=== PATIENT | female | born 1940 | race Caucasian/White ===

== ENCOUNTER → 2023-10-28 10:14 | Outpatient (REF) | payer MEDICARE, OTHER, SELFPAY ==
[2023-10-28 14:58] LABS: % Basophils 0.8 % (0-2); % Eosinophils 0.7 % (0-6); % Immature Granulocytes 0.7 % (0-0.5); % Monocytes 8.3 % (1.7-9.3); % Neutrophils 65.5 % (42.2-75.2); Absolute Basophils 0.1 10^3/uL (0-0.2); Absolute Lymphocytes 1.5 10^3/uL (1.2-3.4); Absolute Monocytes 0.5 10^3/uL (0.1-0.6); Hematocrit 41.7 % (37.0-47.0); Hemoglobin 13.7 g/dL (12.0-16.0); Mean Corp Hgb Conc. 32.9 g/dL (33.0-37.0); Mean Corpuscular Volume 88.3 fL (81.0-99.0); Nucleated Red Blood Cells % 0 %; Platelet Count 223 10^3/uL (130-400); Red Blood Cell Count 4.72 10^6/uL (4.20-5.40); Red Cell Dist. Width 14.7 % (11.5-14.5); White Blood Cell Count 6.1 10^3/uL (4.8-10.8)
[2023-10-28 15:14] LABS: ALT (SGPT) 18 U/L (0-35); AST (SGOT) 24 U/L (14-36); Albumin 4.3 g/dl (3.5-5.0); Alkaline Phosphatase 69 U/L (38-126); Blood Urea Nitrogen 28 mg/dl (7-17); Calcium 13.3 mg/dl (8.4-10.2); Carbon Dioxide 29 mmol/L (22-30); Chloride 99 mmol/L (98-107); Glucose 112 mg/dl (70-99); Iron 81 ug/dl (37-170); Potassium 4.1 mmol/L (3.5-5.1); Sodium 140 mmol/L (135-145); Total Bilirubin 0.9 mg/dl (0.2-1.3); Total Protein 7.1 g/dl (6.3-8.2); eGFR 41.31
[2023-10-28 15:33] LABS: TSH 2.41 uIU/ml (0.47-4.68)
[2023-10-29 09:09] LABS: Glycohemoglobin (HgbA1c) 6.2 % (4.0-5.6)
== END ==
LOC: HWLAB 10:14
PROVIDERS: ATTENDING PHYSICIAN Family Medicine
DX: M54.16 Radiculopathy, lumbar region (principal); E03.9 Hypothyroidism, unspecified; I10 Essential (primary) hypertension; N18.9 Chronic kidney disease, unspecified; E11.21 Type 2 diabetes mellitus with diabetic nephropathy; R63.4 Abnormal weight loss
CPT/HCPCS: 36415; 72110; 80053; 82728; 83036; 83540; 83970; 84443; 85025

== ENCOUNTER 2023-11-04 20:03 | Inpatient (IN) | payer MEDICARE, OTHER, SELFPAY ==
[2023-11-04 16:12] VITALS: BP 182/88
--- NOTE | 2023-11-04 17:12 | ED.GENMED ---
History of Present Illness
General
Chief Complaint: Abnormal Lab Value
Time Seen by Provider: 11/04/23 17:00
Travel History
Have you had any contact with someone who has COVID-19?: No
Do you have any symptoms of coronavirus? Fever > 100 degrees, chills, cough, shortness of breath, sore throat, loss of taste or smell, muscle aches, or headache?: No
History of Present Illness
History of Present Illness:
HPI: Patient presents due to concern for hypercalcemia and was referred here. She seems to be somewhat of a limited historian but states that she initially saw primary care doctor who noted the high calcium and lab work today showed an even higher
calcium. She denies any significant symptoms. She denies any significant abdominal pain.
EXAM:
GENERAL: Well appearing for the most part but she does seem somewhat confused at times
HEENT: Moist oral mucosa
CARDIOVASCULAR: No murmurs, normal heart rate, regular rhythm, No chest wall tenderness
PULMONARY: No respiratory distress, breath sounds are clear and equal
ABDOMEN: Soft with no peritoneal signs, no tenderness
NEUROLOGIC: Good strength all extremities, no coordination deficits
PSYCHIATRIC: Appropriate mental status, slightly limited insight and judgement
EXTREMITIES: Nontender, no edema, moves all extremities equally
SKIN: No rash, no lesions
TIME OF INITIAL ENCOUNTER: 6 PM
NUMBER AND COMPLEXITY OF PROBLEMS ADDRESSED AT THE ENCOUNTER
� Chronic conditions affecting care: Breast cancer, diabetes, hypothyroidism
� Acute Exacerbation and/or Progression of Chronic Illness: This is an acute problem
� Differential Diagnosis includes: Hypercalcemia related to malignancy, thyroid disease, parathyroid disease
AMOUNT AND/OR COMPLEXITY OF DATA TO BE REVIEWED AND ANALYZED
� I performed an independent evaluation of and my interpretation is:
EKG: Sinus 86, QTc is [address]:
X-rays:
Laboratory Studies: CBC unremarkable, creatinine is 1.5 and calcium earlier today is 15.3 up from 13.3 1 week ago
Other:
� Review of other/old records: Calcium was 13.3 from 1 week ago
� Clinical information was obtained by an independent historian: I spoke to the son at bedside who agrees the patient does seem somewhat confused at times.
� Prescriptions/Medications Considered but not given:
� Further testing considered but not performed:
RISK OF COMPLICATIONS AND/OR MORBIDITY OR MORTALITY OF PATIENT MANAGEMENT
� Social determinants of health affecting care: Lives at home
� Discussion with other providers: Discussed case with Dr. Quinones; I also spoke to Dr. Martinez states she will be ordering magnesium as magnesium is low
� Escalation of care including admission/observation vs risk of discharge considered: The patient has marked hypercalcemia. EKG is unremarkable. To DO daughter recommends IV fluids and midnight which I have ordered. He
recommends to hold off on diuresis at this time.
Phy Exam
Physical Exam
Physical Exam:
See HPI
Course
Orders/Labs/Results
Orders:
Orders
11/04/23 17:12
0.9% Sodium Chloride 1000 ml [Nss] 1,000 ml IV BOLUS
11/04/23 17:14
Electrocardiogram (*1) Urgent
Reason for Study: Other
Other Reason for Exam: hypercalcemia
EKG- Treatment ONCE
11/04/23 17:19
Complete Blood Count/With Diff Urgent
Comprehensive Metabolic Panel Urgent
Magnesium Urgent
Comment: ADD ON
PTH [Intact PTH Includes Calcium] Urgent
Phosphorus Urgent
Comment: ADD ON
TSH Reflex To Free T4 Urgent
Comment: ADD ON
11/04/23 17:54
Add On- LAB Urgent
Tests Added?: tsh reflex fT4
11/04/23 18:32
Add On- LAB Urgent
Tests Added?: phos, mg
11/04/23 19:00
Pamidronate Disodium [Aredia] 60 mg 0.9% Sodium Chloride 250 ml [Nss] 250 ml IV ONCE
11/04/23 19:29
Magnesium Sulfate 2 Gram/50 ml [Magnesium Sulfate] 2 gram in 50 ml IV NOW
11/04/23 19:35
Urinalysis Reflex To Culture Routine
Date Specimen was Collected: 11/04/23
Time Specimen was Collected: 19:34
11/04/23 19:38
Admit/Transfer Patient As Directed
Co-Sign Provider:
Level of Care: Inpatient admission
Assign to:: Medical/Surgical
Physician / Group: michael
Diagnosis: symptomatic hypercalcemia
Reason for Hospitalization: symptomatic hypercalcemia
Expected length of stay greater than two midnights?: Yes
ELOS- Estimated Length of Stay in days: 3
I certify the patient meets the requirements for IP care: Yes
11/04/23 19:39
Code Status As Directed
Resuscitation Status: Full Code
Abnormal Lab Results
11/04/23
17:19
Hct 36.4 L %
(37.0-47.0)
RDW 14.8 H %
(11.5-14.5)
Absolute Monos (auto) 0.8 H 10^3/uL
(0.1-0.6)
Lymphocytes % 19.2 L %
(20.5-51.1)
Monocytes % 10.9 H %
(1.7-9.3)
Sodium 134 L mmol/L
(135-145)
BUN 32 H mg/dl
(7-17)
Creatinine 1.5 H mg/dL
(0.6-1.0)
Glucose 107 H mg/dl
(70-99)
Calcium 15.2 H* mg/dl
(8.4-10.2)
Magnesium 1.2 L mg/dl
(1.6-2.3)
PTH Intact 3.8 L pg/ml
(13.6-85.8)
11/04/23 17:19
11/04/23 17:19
Vital Signs
Initial and Last Documented VS:
Initial Vital Signs
Temp Pulse Resp BP Pulse Ox
98.2 F 72 20 182/88 99
11/04/23 16:12 11/04/23 16:12 11/04/23 16:12 11/04/23 16:12 11/04/23 16:12
Last Documented Vital Signs
Temp Pulse Resp BP Pulse Ox
98.2 F 92 22 173/87 96
11/04/23 16:12 11/04/23 19:06 11/04/23 19:06 11/04/23 19:06 11/04/23 19:06
*Critical Care Note
Total Time (30-74mins, 75-104mins- exclusive of procedures): 45min
comment:
The patient has critically high calcium. She was emergently given IV fluids as well as emergently given pamidronate by IV. EKG was also checked which was unremarkable.
ED Attending Note
-
Portions of this chart may have been created with voice recognition software.� Occasional wrong word or��sound alike� substitutions may have occurred due to the inherent limitations of voice recognition software.
Discharge Plan
Departure
Patient Disposition: Admit
Date of Disposition: 11/04/23
Time of Disposition: 18:53
Presentation/result/management discussed w/ accepting MD/DO: Hospitalist
Discharge Problem:
Hypercalcemia
Prescriptions:
No Action
losartan 50 mg Tablet
50 mg PO BID
tramadol-acetaminophen 37.5-325 mg tablet
1 tab PO BIDPRN PRN (Reason: mild pain)
levothyroxine [Synthroid] 88 mcg Tablet
88 mcg PO SUMOTUTHFRSA@0800
levothyroxine [Synthroid] 88 mcg Tablet
176 mcg PO WE@0800
docusate sodium [Stool Softener] 100 mg Capsule
100 mg PO DAILY PRN (Reason: constipation)
vitamin B complex Tablet
1 tab PO DAILY
metformin 500 mg tablet extended release 24 hr
500 mg PO BID
cholecalciferol (vitamin D3) 50 mcg (2,000 unit) Tablet
50 mcg PO DAILY
Patient Comments:
11/04/2023, per pt., her doctor told her to stop taking this vitamin today.
Trulicity 1.5 mg/0.5 mL pen injector
1.5 mg SC QWEEK
Patient Comments:
11/04/2023, pt. states to take on Wednesdays or .
red yeast rice
40 mg PO BID
Referrals:
NONE,* [Active] -
Interventions
Interventions:
*Risk Screen - Suicide Last Done: 11/04/23 16:12
*General Assessment Last Done: 11/04/23 16:12
*Neglect/Abuse Screening Last Done: 11/04/23 16:12
*ED COVID-19 Vaccine History Last Done: 11/04/23 16:37
Discharge Date and Time
Print Language: LITHUANIAN
[2023-11-04 17:21] VITALS: BP 174/72
[2023-11-04] MEDS: NSS 1000 IV ×2 (17:21→20:41)
[2023-11-04 17:22] VITALS: BP 174/72
[2023-11-04 17:30] LABS: % Basophils 0.7 % (0-2); % Eosinophils 0.4 % (0-6); % Immature Granulocytes 0.4 % (0-0.5); % Lymphocytes 19.2 % (20.5-51.1); % Monocytes 10.9 % (1.7-9.3); % Neutrophils 68.4 % (42.2-75.2); Absolute Basophils 0.1 10^3/uL (0-0.2); Absolute Lymphocytes 1.3 10^3/uL (1.2-3.4); Absolute Monocytes 0.8 10^3/uL (0.1-0.6); Absolute Neutrophils 4.7 10^3/uL (1.4-6.5); Hematocrit 36.4 % (37.0-47.0); Hemoglobin 12.6 g/dL (12.0-16.0); Mean Corp Hgb Conc. 34.6 g/dL (33.0-37.0); Mean Corpuscular Hgb 29.8 pg (27.0-31.0); Mean Corpuscular Volume 86.1 fL (81.0-99.0); Mean Platelet Volume 10.2 fL (7.4-10.4); Nucleated Red Blood Cells % 0 %; Platelet Count 195 10^3/uL (130-400); Red Blood Cell Count 4.23 10^6/uL (4.20-5.40); Red Cell Dist. Width 14.8 % (11.5-14.5); White Blood Cell Count 6.9 10^3/uL (4.8-10.8)
[2023-11-04 17:57] LABS: ALT (SGPT) 16 U/L (0-35); AST (SGOT) 27 U/L (14-36); Albumin 3.9 g/dl (3.5-5.0); Alkaline Phosphatase 63 U/L (38-126); Blood Urea Nitrogen 32 mg/dl (7-17); Carbon Dioxide 26 mmol/L (22-30); Chloride 98 mmol/L (98-107); Glucose 107 mg/dl (70-99); Potassium 4.2 mmol/L (3.5-5.1); Sodium 134 mmol/L (135-145); Total Bilirubin 0.8 mg/dl (0.2-1.3); Total Protein 6.4 g/dl (6.3-8.2); eGFR 34.79
[2023-11-04 18:09] LABS: Intact PTH 3.8 pg/ml (13.6-85.8)
[2023-11-04 18:13] LABS: Calcium 15.2 mg/dl (8.4-10.2)
[2023-11-04 18:39] LABS: TSH Reflex To Free T4 2.66 uIU/ml (0.47-4.68)
[2023-11-04 18:53] LABS: Magnesium 1.2 mg/dl (1.6-2.3); Phosphorus 3.3 mg/dl (2.5-4.5)
[2023-11-04] MEDS: AREDIA 270 MG IV (19:03)
--- NOTE | 2023-11-04 19:05 | HPS.HSE ---
Family Physician
-
Family Physician: Demetria Antonio
Chief Complaint
-
generalized weakness
left sided abdominal pain
History of Present Illness
83 year old with PMH for breast cancer, thyroid lump, htn, hld, hypothyroidism presented to us with generalized weakness for two weeks. she also complained of left sided lower abdominal pain toward the back intermittently for past few weeks. denied
n/v/d. stated poor appetite. denied fever, chills, chest pain, sob. denied [place],dizzy or syncopal episode. denied dysuria or hematuria. patient was noted to have hypercalcemia a week at PCP office. she was followed by nephrology today and noted to
have worsening of calcium level. admitting for further management
patient ordered normal saline and pamidronate in ER.admitting for further management.
Medical History
Past Medical History
Past Medical History: Reports Other
Additional Past Medical History:
type 2 Dm
hypothyroidism
CKD stage 3
htn
breast cancer
Past Surgical History: Reports Other
Additional Past Surgical History:
right breast lumpectomy
right thyroid lobectomy
tubal ligation
Social History
Tobacco: Non-smoker
Alcohol: None
Drug: None
Family History
Family History: Not pertinent
Allergies / Home Medications
Allergies reflects when Allergies were last updated in [facility] [employer].
Home Medications with original date entered in [facility] [employer]
Allergy/Medication List:
Allergies
Allergy/AdvReac Type Severity Reaction Status Date / Time
prednisone Allergy Unknown Verified 11/04/23 16:18
Home Medications
cholecalciferol (vitamin D3) 50 mcg (2,000 unit) tablet 50 mcg PO DAILY 11/04/23
docusate sodium 100 mg capsule (Stool Softener) 100 mg PO DAILY PRN constipation 11/04/23
dulaglutide 1.5 mg/0.5 mL subcutaneous [facility]) 1.5 mg SC QWEEK 11/04/23
levothyroxine 88 mcg tablet (Synthroid) 88 mcg PO SUMOTUTHFRSA@79911/04/23
levothyroxine 88 mcg tablet (Synthroid) 176 mcg PO WE@79911/04/23
losartan 50 mg tablet 50 mg PO BID 11/04/23
metformin 500 mg tablet,extended release 24 hr 500 mg PO BID 11/04/23
red yeast rice 40 mg PO BID 11/04/23
tramadol 37.5 mg-acetaminophen 325 mg tablet 1 tab PO BIDPRN PRN mild pain 11/04/23
vitamin B complex 1 tab PO DAILY 11/04/23
Review of Systems
-
Constitutional: Reports No Symptoms
EENT: Reports No Symptoms
Respiratory: Reports No Symptoms
Cardiac: Reports No Symptoms
Abdomen/GI: Reports Abdominal Pain (left sided)
: Reports No Symptoms
Musculoskeletal: Reports No Symptoms
Skin: Reports No Symptoms
Neurological: Reports No Symptoms
Endocrine: Reports No Symptoms
Hematologic/Lymphatic: Reports No Symptoms
Psych: Reports No Symptoms
Physical Exam
Vital Signs
Vital Signs
Temp Pulse Resp BP Pulse Ox
98.2 F 89 16 174/72 96
11/04/23 16:12 11/04/23 17:22 11/04/23 17:22 11/04/23 17:22 11/04/23 17:22
Physical Exam
General: Well Developed, Well Nourished and No Apparent Distress
HEENT: NormoCephalic, Moist mucous membranes and Atraumatic
Respiratory: Clear
Cardiac: S1/S2 and Regular Rhythm; No Murmur or Rub
GI: Soft, Non Tender, Non Distended and Normal Bowel Sounds; No Organomegaly
Rectal: Deferred by Provider
Musculoskeletal: No Clubbing, No Cyanosis and No Edema
Skin: No Rash
Neuro: AO x 3 and Nonfocal/grossly intact
Psych: Calm
Laboratory Results
-
11/04/23 17:19
11/04/23 17:19
Laboratory Results
Total Bilirubin 0.8 mg/dl (0.2-1.3) 11/04/23 17:19
AST 27 U/L (14-36) 11/04/23 17:19
ALT 16 U/L (0-35) 11/04/23 17:19
Alkaline Phosphatase 63 U/L (38-126) 11/04/23 17:19
Data Reviewed
-
Lab Data: Labs Reviewed by me
Impression/Plan
-
#hypercalcemia unclear cause likely dehydration
-gave pamidronate in ER
-fluids continued
-trend calcium level in am
-nephrology consulted
#acute on chronic CKD stage 3b likely dehydration
-cr 1.5
-normal saline continued
#hypomagnesemia likely poor oral intake
-mag 1.2
-mag rider
-monitor mag in am
#left side lower abdominal pain radiating to lower back unclear cause
-consider CT abdomen pelvis when creatine better
#hypoparathyroidism
-PTH intact 3.8
#type 2 Dm
-hold Trulicity, metformin
-sliding scale
-daily bgm
-CHO diet
#hypothyroidism
-levothyroxine continued
#essentia htn
-losartan held
-add hydralazine prn
#hxt of right breast ca
-s/right breast lumpectomy
#hxt of right thyroid lobectomy
#DVT prophylaxis
-heparin sq
#CODE status
-full code
[2023-11-04 19:06] VITALS: BP 173/87
[2023-11-04 19:52] LABS: Urine Albumin Negative (Neg - Trace); Urine Bilirubin Negative (Negative); Urine Character Clear (Clear); Urine Color Yellow; Urine Glucose Negative (Negative); Urine Ketone Trace (Negative); Urine Leukocyte Trace (Negative); Urine Nitrite Negative (Negative); Urine Occult Blood Negative (Negative); Urine Specific Gravity 1.025 (<1.030); Urine Urobilinogen Negative (Neg - 1+)
[2023-11-04 20:19] LABS: Urine Bacteria Few (Negative); Urine Hyaline Cast 0-2 /LPF (0-2)
[2023-11-04 20:28] VITALS: BMI 27.0
[2023-11-04] MEDS: APRESOLINE 5 MG IV (20:42)
[2023-11-04] MEDS: HEPARIN 5000 UNITS SC (20:42)
[2023-11-04] MEDS: MAGNESIUM SULFATE 50 IV (20:44)
[2023-11-04 20:45] VITALS: BP 190/88
[2023-11-04] MEDS: ULTRAM 50 MG PO (21:37)
[2023-11-04 22:14] LABS: Glucose - Point of Care 90 mg/dl (70-99)
[2023-11-04 23:00] VITALS: BP 170/75
[2023-11-04] MEDS: LIDOCAINE 4% PATCH 1 PATCH TOPICAL (23:16)
--- NOTE | 2023-11-04 23:35 | PTCARENOTE ---
pt is aaox3, but forgetful. pt reports left lower abdominal pain 9/10 continuous. and left lower back pain. administered prn Ultram and obtained order for lidocaine patch. [employer] [place] aware. pt is oriented to room, bed alarm on, and call woody
in reach. will monitor.
[2023-11-05] MEDS: NSS 1000 IV ×2 (03:17→18:20)
[2023-11-05] MEDS: APRESOLINE 5 MG IV (03:23)
[2023-11-05 03:57] VITALS: BP 162/81
[2023-11-05 04:44] LABS: Hemoglobin 11.2 g/dL (12.0-16.0); Mean Corp Hgb Conc. 33.9 g/dL (33.0-37.0); Mean Corpuscular Hgb 28.9 pg (27.0-31.0); Mean Corpuscular Volume 85.3 fL (81.0-99.0); Mean Platelet Volume 10.1 fL (7.4-10.4); Platelet Count 169 10^3/uL (130-400); Red Blood Cell Count 3.87 10^6/uL (4.20-5.40); Red Cell Dist. Width 14.7 % (11.5-14.5); White Blood Cell Count 5.7 10^3/uL (4.8-10.8)
[2023-11-05 05:15] LABS: Blood Urea Nitrogen 26 mg/dl (7-17); Calcium 12.9 mg/dl (8.4-10.2); Carbon Dioxide 24 mmol/L (22-30); Chloride 105 mmol/L (98-107); Estimated Creatinine Clearance 30 ml/min; Glucose 91 mg/dl (70-99); Magnesium 1.6 mg/dl (1.6-2.3); Sodium 137 mmol/L (135-145); eGFR 45.48
[2023-11-05] MEDS: SYNTHROID 176 MCG PO (05:48)
[2023-11-05 07:11] LABS: Glucose - Point of Care 85 mg/dl (70-99)
[2023-11-05] MEDS: HEPARIN 5000 UNITS SC ×2 (07:44→20:21)
[2023-11-05] MEDS: NOVOLOG FLEXPEN-LOW RESISTANCE SC ×3 (07:45→16:40)
[2023-11-05 07:55] VITALS: BP 135/60
[2023-11-05 10:09] VITALS: BP 159/72; PULSE 87; O2SAT 96
[2023-11-05 11:59] LABS: Glucose - Point of Care 93 mg/dl (70-99)
[2023-11-05 14:54] VITALS: BMI 27.0
--- NOTE | 2023-11-05 14:55 | W.PN.HOSP.TC ---
Today's Communication/Plan
-
see plan above
Assessment / Plan
Assessment / Plan
Impression/Plan:
Symptomatic Hypercalcemia -non PTH related
-s/p IV Pamidronate in ED
-s/p IVF bolus followed by NS 150 mL per hour which i will hold further
- Improved clinical symptoms with improvement in Ca.
-Check PTHrP and 1,25 hydroxyVitamin D
- Consult renal
Would benefit CT A/P with hx of wt loss ; Will ask renal to weigh in on risk of JOHN.
If not ,will get CT without contrast
Check CXR
Lumbar spine xray without no acute abnormalities
#Hypomagnesemia
-repleted
#AUGIE on CKD 3
- Improved to baseline
#DM 2 - AM Blood sugars under goal
#HTN - under goal
#Hypothyroidism
-TSH WNL, cont Synthroid
DW Renal -will see
Anticipated Discharge: 24 - 48 hours
Subjective/Interval History
-
Date of Service: November 05, 2023
Feeling bit better today. Less confused. More energy.
Objective Data
-
Labs:
Laboratory Results
11/05/23
04:32
WBC 5.7
Hgb 11.2 L
Hct 33.0 L
Plt Count 169
Sodium 137
Potassium 4.0
Chloride 105
Carbon Dioxide 24
BUN 26 H
Creatinine 1.2 H
Glucose 91
Calcium 12.9 H D
Vital Signs:
Vital Signs
Temp Pulse Resp BP Pulse Ox
97.8 F 91 16 135/60 96
11/05/23 07:55 11/05/23 07:55 11/05/23 07:55 11/05/23 07:55 11/05/23 10:09
I&O
11/04/23 11/05/23 11/06/23
06:59 06:59 06:59
Intake Total 1819
Balance 1819
Review of Systems
-
Constitutional: Denies Fever
EENT: Denies Sore Throat
Respiratory: Denies Cough or Trouble Breathing
Cardiac: Denies Chest Pain
Abdomen/GI: Reports Abdominal Pain (some discomfort in LLQ ,Left lateral pelvis and some in her left lower back); Denies Nausea or Vomiting
Genitourinary: Denies Dysuria
Musculoskeletal: Reports Joint Pain (low back pain for sometime)
Neuro: Denies Dizzy
Physical Exam
-
General: No Apparent Distress
HEENT: Moist Mucous Membranes
Respiratory: Clear to Auscultation
Cardiac: Regular Rhythm and S1/S2
GI: Soft, Nontender, Nondistended and Normal Bowel Sounds
Neuro: AO x 3
Data Reviewed
-
Labs: Labs Reviewed by me
[2023-11-05 15:00] VITALS: BP 164/80
[2023-11-05 16:30] LABS: Glucose - Point of Care 110 mg/dl (70-99)
--- NOTE | 2023-11-05 16:30 | W.CON.NEPH ---
Consultation
-
Date/Time Consultation Requested: 11/04/231954
Date/Time Consultation Performed: 11/05/23 1715
Requesting Provider: Manuel Ruth
Performing Provider: Raquel Coley
Reason for Consultation: AUGIE, hypercalcemia
Medical History
-
Chief Complaint: abnormal labs
History of Present Illness:
83 year old with PMH for HTN on Losartan, HLD on red yeast rice, hypothyroidism on LT4, type 2 DM on metformin, Trulicity, CKD3 baseline cr 1.2 diabetic nephroapthy, remote history of breast cancer 2014 s/p lumpectomy and XRT, no chemo required, has
been in remission presented to ER on 11/03 for abnormal labs adrienne 15. SHe has generalized weakness, accompanied with left sided lower abdominal pain with low back pain for past 2 weeks. denied n/v/d. stated poor appetite with wt loss of 20lbs in
5months. She also notes constipation. She is slow respond with prior history of deconditioned from reaction to prednisone summer that caused severe weakness. She was supposed to get CT per her PCP for further evaluation. patient was noted to
have hypercalcemia 13.[address] Hartley nephrology on 11/03 as first visit and labs were repeated noting calcium 15.2 and cr up at 1.6 from baseline 1.2 recommended to come to ER. She received IVF NS overnight with improving cr down to 1.2 and adrienne at
12.9. Out pt labs noted low PTH, normal TSH, normal vit D3, SPEP, UPEP pending. TOday she feels well,more alert. No dysuria. still poor appetite. 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
Past Medical History
type 2 Dm
hypothyroidism
CKD stage 3
htn
breast cancer
Past Surgical History: Other (right breast lumpectomy right thyroid lobectomy tubal ligation)
Social History
Tobacco: Non-Smoker
Alcohol: None
Drug: None
Living: With Family
Family History
mother- with kidney disease, DM
Allergies / Home Medications
Allergy/AdvReac Type Severity Reaction Status Date / Time
prednisone Allergy Unknown Verified 11/04/23 16:18
�Medication �Instructions �Recorded �Confirmed �Type
cholecalciferol (vitamin D3) 50 50 mcg PO DAILY Supplement 11/04/23 11/04/23 History
mcg (2,000 unit) tablet
docusate sodium 100 mg capsule 100 mg PO DAILY PRN constipation 11/04/23 11/04/23 History
(Stool Softener)
dulaglutide 1.5 mg/0.5 mL 1.5 mg SC QWEEK diabetes 11/04/23 11/04/23 History
subcutaneous pen injector
(Trulicity)
levothyroxine 88 mcg tablet 88 mcg PO SUMOTUTHFRSA@0800 Thyroid 11/04/23 11/04/23 History
(Synthroid)
levothyroxine 88 mcg tablet 176 mcg PO WE@0800 Thyroid 11/04/23 11/04/23 History
(Synthroid)
losartan 50 mg tablet 50 mg PO BID Blood Pressure 11/04/23 11/04/23 History
metformin 500 mg tablet,extended 500 mg PO BID diabetes 11/04/23 11/04/23 History
release 24 hr
red yeast rice 40 mg PO BID Supplement 11/04/23 11/04/23 History
tramadol 37.5 mg-acetaminophen 325 1 tab PO BIDPRN PRN mild pain 11/04/23 11/04/23 History
mg tablet
vitamin B complex 1 tab PO DAILY Supplement 11/04/23 11/04/23 History
Review of Systems
-
All complete 12 point ROS have been inquired and found negative other than stated in HPI
Physical Exam
Vital Signs
Vital Signs
Temp Pulse Resp BP Pulse Ox
97.6 F 105 16 164/80 98
11/05/23 15:00 11/05/23 15:00 11/05/23 15:00 11/05/23 15:00 11/05/23 15:00
Lab Results
WBC 5.7 10^3/uL (4.8-10.8) 11/05/23 04:32
RBC 3.87 10^6/uL (4.20-5.40) L 11/05/23 04:32
Hgb 11.2 g/dL (12.0-16.0) L 11/05/23 04:32
Hct 33.0 % (37.0-47.0) L 11/05/23 04:32
Plt Count 169 10^3/uL (130-400) 11/05/23 04:32
Sodium 137 mmol/L (135-145) 11/05/23 04:32
Potassium 4.0 mmol/L (3.5-5.1) 11/05/23 04:32
Chloride 105 mmol/L (98-107) 11/05/23 04:32
Carbon Dioxide 24 mmol/L (22-30) 11/05/23 04:32
BUN 26 mg/dl (7-17) H 11/05/23 04:32
Creatinine 1.2 mg/dL (0.6-1.0) H 11/05/23 04:32
eGFR 45.48 11/05/23 04:32
Glucose 91 mg/dl (70-99) 11/05/23 04:32
Calcium 12.9 mg/dl (8.4-10.2) H D 11/05/23 04:32
Phosphorus 3.3 mg/dl (2.5-4.5) 11/04/23 17:19
Albumin 3.9 g/dl (3.5-5.0) 11/04/23 17:19
Abnormal Lab Results
11/04/23 11/04/23 11/05/23
17:19 19:35 04:32
RBC 3.87 L
Hgb 11.2 L
Hct 36.4 L 33.0 L
RDW 14.8 H 14.7 H
Absolute Monos (auto) 0.8 H
Lymphocytes % 19.2 L
Monocytes % 10.9 H
Sodium 134 L
BUN 32 H 26 H
Creatinine 1.5 H 1.2 H
Glucose 107 H
Calcium 15.2 H* 12.9 H D
Magnesium 1.2 L
PTH Intact 3.8 L
Urine Ketones Trace A
Leukocyte Esterase Rfl Trace A
Urine WBC (Reflex) 11-15 A
Urine Bacteria (Reflex) Few A
POC Glucose
11/05/23
16:29
RBC
Hgb
Hct
RDW
Absolute Monos (auto)
Lymphocytes %
Monocytes %
Sodium
BUN
Creatinine
Glucose
Calcium
Magnesium
PTH Intact
Urine Ketones
Leukocyte Esterase Rfl
Urine WBC (Reflex)
Urine Bacteria (Reflex)
POC Glucose 110 H
CXR:
IMPRESSION:
Mild opacity in the left base favored to represent atelectasis.
Physical Exam
General: Awake, Alert, Oriented, AOx3, No Distress and Nontoxic
HEENT: EOMI, Anicteric, Facial Symmetry, Neck Supple and No JVD
Respiratory: Clear
Cardiac: S1/S2 and Regular Rate/Rhythm
Breast: Deferred by me
Abdomen: Soft, Nontender and Nondistended
Genito-urinary: No Costovertebral Tender
Musculoskeletal: No Cyanosis and No Edema
Skin: No Rash ([place] skin from sun burn upper back), Warm and Dry
Neuro: Nonfocal/Grossly Intact
Psych: Mood/afflect pleasant and Appropriate
Assessment/Plan
-
IMP:
Symptomatic Hypercalcemia
Hypomagnesemia
AUGIE on CKD 3
mild microalbuminuria
DM 2
HTN
Hypothyroidism
Plan:
A/w hypercalcemia 15.3 and AUGIE
AUGIE prerenal , better with IVF , cr at baseline now
UA with mild pyuria, follow bladder scan
hypercalcemia-non PTH dependant so no hyperparathyroidism
vit D 25 normal, normal TSH. agree check PTHrp and paraprotein w/u, check U PCR
CXR was ok, if cr stable tomorrow I am ok with contrast studies if needed-defer to primary
would still continue IVF
s/p Pamidronate on 11/03, adrienne is improving
Bp are high, may benefit from BB with high HR. hold ARB
hold all vit D and adrienne supplements
mg replaced
d/w pt and family at bedside
[2023-11-05] MEDS: LIDOCAINE 4% PATCH 1 PATCH TOPICAL (20:21)
[2023-11-05] MEDS: ULTRAM 50 MG PO (20:34)
[2023-11-05] MEDS: TYLENOL 650 MG PO (20:34)
[2023-11-05 21:25] LABS: Glucose - Point of Care 125 mg/dl (70-99)
[2023-11-05 23:30] VITALS: BP 184/87
[2023-11-05 23:55] VITALS: BP 158/68
[2023-11-06] MEDS: BenGay-Like 1 APPLIC TOPICAL (03:31)
[2023-11-06 05:14] LABS: Hematocrit 39.7 % (37.0-47.0); Hemoglobin 13.2 g/dL (12.0-16.0); Mean Corp Hgb Conc. 33.2 g/dL (33.0-37.0); Mean Corpuscular Hgb 29.1 pg (27.0-31.0); Mean Corpuscular Volume 87.6 fL (81.0-99.0); Mean Platelet Volume 10.3 fL (7.4-10.4); Platelet Count 164 10^3/uL (130-400); Red Blood Cell Count 4.53 10^6/uL (4.20-5.40); Red Cell Dist. Width 14.6 % (11.5-14.5); White Blood Cell Count 5.6 10^3/uL (4.8-10.8)
[2023-11-06] MEDS: NSS 1000 IV ×2 (05:28→13:56)
[2023-11-06 05:40] LABS: Blood Urea Nitrogen 22 mg/dl (7-17); Calcium 12.7 mg/dl (8.4-10.2); Carbon Dioxide 25 mmol/L (22-30); Chloride 106 mmol/L (98-107); Estimated Creatinine Clearance 28 ml/min; Glucose 106 mg/dl (70-99); Magnesium 1.5 mg/dl (1.6-2.3); Potassium 3.8 mmol/L (3.5-5.1); Sodium 141 mmol/L (135-145); eGFR 41.31
[2023-11-06] MEDS: SYNTHROID 88 MCG PO (05:49)
[2023-11-06 07:18] LABS: Glucose - Point of Care 96 mg/dl (70-99)
[2023-11-06 08:12] VITALS: BP 168/68
[2023-11-06] MEDS: ULTRAM 50 MG PO ×2 (08:22→20:33)
[2023-11-06] MEDS: HEPARIN 5000 UNITS SC ×2 (08:22→20:37)
[2023-11-06] MEDS: NOVOLOG FLEXPEN-LOW RESISTANCE SC ×3 (08:35→17:17)
[2023-11-06] MEDS: BenGay-Like TOPICAL ×3 (08:39→21:50)
[2023-11-06 11:14] VITALS: BP 162/70
[2023-11-06 12:14] VITALS: BP 175/89; PULSE 89
[2023-11-06 12:16] LABS: Glucose - Point of Care 94 mg/dl (70-99)
--- NOTE | 2023-11-06 12:21 | W.PN.HOSP.TC ---
Today's Communication/Plan
-
Replete Mg
CT abdomen and pelvis today
Assessment / Plan
Assessment / Plan
Impression/Plan:
Symptomatic Hypercalcemia -non PTH dependent
-s/p IV Pamidronate in ED
- Improved clinical symptoms with improvement in Ca.
- Pending PTHrP and 1,25 hydroxyVitamin D
- Appt Renal input - SPEP ordered
In view of LLQ and left flank pain will proceed with t CT A/P with oral contrast
CXR Mild opacity in the left base favored to represent atelectasis.
Lumbar spine xray without no acute abnormalities
#Hypomagnesemia
-replete
#AUGIE on CKD 3
- Improved to baseline
#DM 2 - Blood sugars under goal
#HTN - under goal
#Hypothyroidism
-TSH WNL, cont Synthroid
DW Renal today
Anticipated Discharge: > 48 hours
Subjective/Interval History
-
Date of Service: November 06, 2023
feeling less confused. Could not sleep well last night. Feeling weak today.
Still with some left-sided abdominal area discomfort. Also has low back pain.
Objective Data
-
Labs:
Laboratory Results
11/06/23
04:50
WBC 5.6
Hgb 13.2
Hct 39.7
Plt Count 164
Sodium 141
Potassium 3.8
Chloride 106
Carbon Dioxide 25
BUN 22 H
Creatinine 1.3 H
Glucose 106 H
Calcium 12.7 H
Vital Signs:
Vital Signs
Temp Pulse Resp BP Pulse Ox
98.0 F 88 16 162/70 96
11/06/23 11:14 11/06/23 11:14 11/06/23 11:14 11/06/23 11:14 06/13/24 11:14
I&O
11/05/23 11/06/23 11/07/23
06:59 06:59 06:59
Intake Total 1819
Balance 1819
Review of Systems
-
Constitutional: Denies Fever
Respiratory: Denies Trouble Breathing
Cardiac: Denies Chest Pain
Neuro: Denies Dizzy
Physical Exam
-
General: No Apparent Distress
HEENT: Moist Mucous Membranes
Respiratory: Clear to Auscultation
Cardiac: Regular Rhythm and S1/S2
GI: Soft, Nondistended, Normal Bowel Sounds and Tender (Some in left LLQ and also in left flank area)
Neuro: AO x 3
Psych: Calm
Data Reviewed
-
Labs: Labs Reviewed by me
[2023-11-06] MEDS: MAGNESIUM SULFATE 50 IV (12:35)
--- NOTE | 2023-11-06 14:47 | W.PN.NEPH.PH ---
Today's Communication / Plan
-
cotn IVF
CT with out contrast per primary
Assessment/Plan
-
IMP:
Symptomatic Hypercalcemia
Hypomagnesemia
AUGIE on CKD 3
mild microalbuminuria
DM 2
HTN
Hypothyroidism
Plan:
A/w hypercalcemia 15.3 and AUGIE cr 1.5
AUGIE prerenal , better with IVF , cr at baseline now 1.3
UA with mild pyuria, follow bladder scan
hypercalcemia-non PTH dependant so no hyperparathyroidism
vit D 25 normal, normal TSH. pending PTHrp and paraprotein w/u, check U PCR
CXR was ok, CT with out contrast per primary today
adrienne slow to improve would still continue IVF today, likely d/c in am
s/p Pamidronate on 11/03,
Bp are high, add Amlodipine. hold ARB
hold all vit D and adrienne supplements
mg replace
d/w pt and nursing
d/w primary
-
-
Date of Service: November 06, 2023
CC / HPI / ROS
-
Chief Complaint:
AUGIE, hyperclacemia
History of Present Illness:
cr stable 1.3, subjectively non oliguric
adrienne low 12.7, k normal , mg low 1.5
BP are high
Review of Systems:
no cp or sob
feels well
no edema
Labs
-
Labs:
WBC 5.6 10^3/uL (4.8-10.8) 11/06/23 04:50
RBC 4.53 10^6/uL (4.20-5.40) 11/06/23 04:50
Hgb 13.2 g/dL (12.0-16.0) 11/06/23 04:50
Hct 39.7 % (37.0-47.0) 11/06/23 04:50
Plt Count 164 10^3/uL (130-400) 11/06/23 04:50
Sodium 141 mmol/L (135-145) 11/06/23 04:50
Potassium 3.8 mmol/L (3.5-5.1) 11/06/23 04:50
Chloride 106 mmol/L (98-107) 11/06/23 04:50
Carbon Dioxide 25 mmol/L (22-30) 11/06/23 04:50
BUN 22 mg/dl (7-17) H 11/06/23 04:50
Creatinine 1.3 mg/dL (0.6-1.0) H 11/06/23 04:50
eGFR 41.31 11/06/23 04:50
Glucose 106 mg/dl (70-99) H 11/06/23 04:50
Calcium 12.7 mg/dl (8.4-10.2) H 11/06/23 04:50
Phosphorus 3.3 mg/dl (2.5-4.5) 11/04/23 17:19
Albumin 3.9 g/dl (3.5-5.0) 11/04/23 17:19
Physical Exam
-
Vital Signs:
Vital Signs
Temp Pulse Resp BP Pulse Ox
98.0 F 88 16 162/70 96
11/06/23 11:14 11/06/23 11:14 11/06/23 11:14 11/06/23 11:14 11/06/23 11:14
Cardiovascular:: Regular rate and rhythm
Respiratory:: Bilateral: CTA
Lung Excursion:: Normal
Abdomen:: Nontender and Soft
Extremity Edema:: None: Bilateral:
P[place] Catheter: No
[2023-11-06] MEDS: NORVASC 5 MG PO (14:58)
[2023-11-06 15:13] VITALS: BP 173/81
--- NOTE | 2023-11-06 16:25 | CM ---
CM met with Maureen Uribe this am. She is feeling weaker than her norm and came to the hospital for evaluation.
Maureen Uribe lives alone in a split level home with a first floor set up with couch to sleep and access to a bathroom. She is typically able to manage independently. 2 sons live in the area and assist as needed.
PLAN: CM will follow to assist with discharge needs as identified. Maureen Uribe would like to go home at discharge and may benefit from VNA to continue strengthening and return to prior (I) status.
PCP: Maureen Antonio
[2023-11-06 16:56] LABS: Glucose - Point of Care 99 mg/dl (70-99)
--- NOTE | 2023-11-06 18:41 | VATNOTE ---
unsuccessful IV restart x3; another VAT RN to attempt.
[2023-11-06] MEDS: LIDOCAINE 4% PATCH 1 PATCH TOPICAL (20:38)
[2023-11-06 21:12] LABS: Glucose - Point of Care 105 mg/dl (70-99)
[2023-11-06 23:30] VITALS: BP 147/79
[2023-11-07] MEDS: NSS 1000 IV (02:57)
[2023-11-07] MEDS: SENOKOT-S 1 TABLET PO (04:11)
[2023-11-07] MEDS: SYNTHROID 88 MCG PO (05:59)
[2023-11-07] MEDS: OMNIPAQUE 50 ML PO (07:37)
[2023-11-07] MEDS: HEPARIN 5000 UNITS SC ×2 (07:51→20:57)
[2023-11-07] MEDS: BenGay-Like 1 APPLIC TOPICAL (07:51)
[2023-11-07] MEDS: NORVASC 5 MG PO (07:52)
[2023-11-07 07:55] VITALS: BP 181/88
[2023-11-07 07:55] LABS: Glucose - Point of Care 69 mg/dl (70-99)
[2023-11-07] MEDS: NOVOLOG FLEXPEN-LOW RESISTANCE SC ×3 (08:03→16:46)
[2023-11-07 08:19] LABS: Glucose - Point of Care 71 mg/dl (70-99)
[2023-11-07 08:41] LABS: Hematocrit 37.4 % (37.0-47.0); Hemoglobin 12.4 g/dL (12.0-16.0); Mean Corp Hgb Conc. 33.2 g/dL (33.0-37.0); Mean Corpuscular Hgb 29.3 pg (27.0-31.0); Mean Corpuscular Volume 88.4 fL (81.0-99.0); Mean Platelet Volume 10.3 fL (7.4-10.4); Platelet Count 151 10^3/uL (130-400); Red Blood Cell Count 4.23 10^6/uL (4.20-5.40); Red Cell Dist. Width 14.8 % (11.5-14.5); White Blood Cell Count 4.4 10^3/uL (4.8-10.8)
[2023-11-07 09:58] LABS: Blood Urea Nitrogen 19 mg/dl (7-17); Calcium 10.5 mg/dl (8.4-10.2); Carbon Dioxide 22 mmol/L (22-30); Chloride 106 mmol/L (98-107); Estimated Creatinine Clearance 33 ml/min; Glucose 94 mg/dl (70-99); Magnesium 1.6 mg/dl (1.6-2.3); Potassium 4.1 mmol/L (3.5-5.1); Sodium 139 mmol/L (135-145); eGFR 50.48
--- NOTE | 2023-11-07 11:26 | W.PN.NEPH.PH ---
Today's Communication / Plan
-
Observe
Assessment/Plan
-
IMP:
Symptomatic Hypercalcemia
Hypomagnesemia
AUGIE on CKD 3
mild microalbuminuria
DM 2
HTN
Hypothyroidism
Plan:
A/w hypercalcemia 15.3 and AUGIE cr 1.5
AUGIE prerenal , better with IVF , cr at baseline now 1.1
Calcium down to 10.5
UA with mild pyuria, follow bladder scan
hypercalcemia-non PTH dependant so no hyperparathyroidism
vit D 25 normal, normal TSH. pending PTHrp and paraprotein w/u, check U PCR
CXR was ok, CT with out contrast per primary today
Can hold off further IV fluid
s/p Pamidronate on 11/03,
Bp are high, add Amlodipine. Will add back losartan
hold all vit D and adrienne supplements
Strong concern for malignant process potentiating hypercalcemia given large conglomerate soft tissue mass within left retroperitoneum will likely require biopsy
d/w pt and nursing
d/w primary
-
-
Date of Service: November 07, 2023
CC / HPI / ROS
-
Chief Complaint:
AUGIE, hyperclacemia
History of Present Illness:
cr stable 1.1, subjectively non oliguric
Calcium at 10.5
BP are high
Review of Systems:
no cp or sob
feels well
no edema
Labs
-
Labs:
WBC 4.4 10^3/uL (4.8-10.8) L 11/07/23 08:31
RBC 4.23 10^6/uL (4.20-5.40) 11/07/23 08:31
Hgb 12.4 g/dL (12.0-16.0) 11/07/23 08:31
Hct 37.4 % (37.0-47.0) 11/07/23 08:31
Plt Count 151 10^3/uL (130-400) 11/07/23 08:31
Sodium 139 mmol/L (135-145) 11/07/23 08:31
Potassium 4.1 mmol/L (3.5-5.1) 11/07/23 08:31
Chloride 106 mmol/L (98-107) 11/07/23 08:31
Carbon Dioxide 22 mmol/L (22-30) 11/07/23 08:31
BUN 19 mg/dl (7-17) H 11/07/23 08:31
Creatinine 1.1 mg/dL (0.6-1.0) H 11/07/23 08:31
eGFR 50.48 11/07/23 08:31
Glucose 94 mg/dl (70-99) 11/07/23 08:31
Calcium 10.5 mg/dl (8.4-10.2) H D 11/07/23 08:31
Phosphorus 3.3 mg/dl (2.5-4.5) 11/04/23 17:19
Albumin 3.9 g/dl (3.5-5.0) 11/04/23 17:19
Physical Exam
-
Vital Signs:
Vital Signs
Temp Pulse Resp BP Pulse Ox
97.6 F 79 17 181/88 98
11/07/23 07:55 11/07/23 07:55 11/07/23 07:55 11/07/23 07:55 11/07/23 08:10
Cardiovascular:: Regular rate and rhythm
Respiratory:: Bilateral: CTA
Lung Excursion:: Normal
Abdomen:: Nontender and Soft
Extremity Edema:: None: Bilateral:
Puckett Catheter: No
[2023-11-07 11:51] LABS: Glucose - Point of Care 83 mg/dl (70-99)
--- NOTE | 2023-11-07 12:32 | W.PN.HOSP.TC ---
Today's Communication/Plan
-
Consult Onc
Assessment / Plan
Assessment / Plan
Impression/Plan:
Symptomatic Hypercalcemia -non PTH dependent
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
-s/p IV Pamidronate in ED
- Improved clinical symptoms with improvement in Ca.
- Pending PTHrP and 1,25 hydroxyVitamin D
- Appt Renal input - SPEP ordered
CXR Mild opacity in the left base favored to represent atelectasis.
Lumbar spine xray without no acute abnormalities
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 Consult oncology.
#Hypomagnesemia
-replete
#AUGIE on CKD 3
- Improved to baseline
#DM 2 - Blood sugars under goal
#HTN - under goal
#Hypothyroidism
-TSH WNL, cont Synthroid
DW son and went over the findings on CT and further diagnositc evaluation plans.
Anticipated Discharge: 24 - 48 hours
Subjective/Interval History
-
Date of Service: November 07, 2023
feels improved but still has this discomfort in the left lower quadrant on the left flank area. It still makes it difficult for her to walk On the left leg.
Objective Data
-
Labs:
Laboratory Results
11/07/23
08:31
WBC 4.4 L
Hgb 12.4
Hct 37.4
Plt Count 151
Sodium 139
Potassium 4.1
Chloride 106
Carbon Dioxide 22
BUN 19 H
Creatinine 1.1 H
Glucose 94
Calcium 10.5 H D
Vital Signs:
Vital Signs
Temp Pulse Resp BP Pulse Ox
97.6 F 79 17 181/88 98
11/07/23 07:55 11/07/23 07:55 11/07/23 07:55 11/07/23 07:55 11/07/23 08:10
I&O
11/06/23 11/07/23 11/08/23
06:59 06:59 06:59
Intake Total 1869 480 / 480
Output Total 400 / 400
Balance 1869 80 / 80
Review of Systems
-
Constitutional: Denies Fever
Respiratory: Denies Trouble Breathing
Cardiac: Denies Chest Pain
Abdomen/GI: Denies Nausea or Vomiting
Neuro: Denies Dizzy
Physical Exam
-
General: No Apparent Distress
HEENT: Moist Mucous Membranes
Respiratory: Clear to Auscultation
Cardiac: Regular Rhythm and S1/S2
GI: Soft and Other (some discomfort to palpation in left flank and LLQ area)
Neuro: AO x 3
Psych: Calm
Data Reviewed
-
CT Scan: Report Reviewed by me (CT A/P)
Labs: Labs Reviewed by me
[2023-11-07] MEDS: COZAAR 50 MG PO (12:35)
--- NOTE | 2023-11-07 12:37 | PN.CDI ---
CDI
- -
CDI:
Physician Documentation Request
Admit Date: 11/04/23 20:03
Dear Doctor Joe,
Patient presented to ED with concern for hypercalcemia. Exam at that time reported pt was ' somewhat confused at times'
11/04 hospitalist progress note states 'less confused'
Could you please clarify in the Progress Notes , if any of the following, is the most likely etiology of the confusion.
Encephalopathy - indicate type, such as metabolic, toxic, septic, alcoholic, anoxic, hypertensive etc. due to a specific condition such as UTI, CVA, hyponatremia etc.
Acute Delirium - indicate known or suspected etiology such as postoperative, due to opioids or other drugs etc. Can also indicate unknown or mixed etiologies.
Acute or subacute confusional state due to ____ (specify known or suspected etiology)
Other
Use of terms such as suspected, likely, concern for, or probable (associated with a specific diagnosis that is being evaluated, monitored, or treated as if it exists) are acceptable and can be coded in the inpatient setting, when documented at the
time of discharge.
Thank you,
Yumiko Rivera RN, BSN
CDI Specialist
tiger text
Please use your independent medical judgment in providing your response.
[2023-11-07 16:19] LABS: Glucose - Point of Care 103 mg/dl (70-99)
[2023-11-07] MEDS: BenGay-Like TOPICAL ×2 (16:47→21:56)
[2023-11-07 17:11] VITALS: BP 162/88
--- NOTE | 2023-11-07 18:32 | CM ---
Maureen is now agreeable to SNF transfer, however is very insistent upon going to [facility]. She would consider [facility] as a back up. Attempted to contact both facilities, however no answer. Referrals sent in [facility].
[2023-11-07] MEDS: LIDOCAINE 4% PATCH 1 PATCH TOPICAL (20:57)
[2023-11-07 21:19] LABS: Glucose - Point of Care 220 mg/dl (70-99)
[2023-11-07] MEDS: ULTRAM 50 MG PO (21:19)
[2023-11-07 23:55] VITALS: BP 137/64
[2023-11-08] MEDS: SYNTHROID 88 MCG PO (05:26)
[2023-11-08] MEDS: NSS 1000 IV (05:26)
[2023-11-08 08:05] LABS: Glucose - Point of Care 83 mg/dl (70-99)
[2023-11-08 08:21] VITALS: BP 182/76
[2023-11-08 08:49] LABS: Hematocrit 37.5 % (37.0-47.0); Hemoglobin 12.8 g/dL (12.0-16.0); Mean Corp Hgb Conc. 34.1 g/dL (33.0-37.0); Mean Corpuscular Hgb 29.1 pg (27.0-31.0); Mean Corpuscular Volume 85.2 fL (81.0-99.0); Mean Platelet Volume 10.5 fL (7.4-10.4); Platelet Count 168 10^3/uL (130-400); Red Cell Dist. Width 14.9 % (11.5-14.5); White Blood Cell Count 5.2 10^3/uL (4.8-10.8)
[2023-11-08] MEDS: NOVOLOG FLEXPEN-LOW RESISTANCE SC ×3 (09:06→17:01)
[2023-11-08 09:14] LABS: Blood Urea Nitrogen 18 mg/dl (7-17); Calcium 10.5 mg/dl (8.4-10.2); Carbon Dioxide 21 mmol/L (22-30); Chloride 107 mmol/L (98-107); Estimated Creatinine Clearance 30 ml/min; Glucose 95 mg/dl (70-99); Potassium 3.9 mmol/L (3.5-5.1); Sodium 140 mmol/L (135-145); Uric Acid 7.8 mg/dl (2.5-6.2); eGFR 45.48
[2023-11-08] MEDS: BenGay-Like TOPICAL ×2 (09:30→16:12)
[2023-11-08] MEDS: HEPARIN 5000 UNITS SC ×2 (09:36→20:46)
[2023-11-08] MEDS: NORVASC 5 MG PO (09:37)
[2023-11-08 10:15] LABS: PTH Related Peptide LC-MS/MS 3.7 pmol/L (0.0-3.4)
--- NOTE | 2023-11-08 10:40 | W.PN.HOSP.TC ---
Today's Communication/Plan
-
Hold on CT with contrast; explore MRI abdo
Check Uric acid levels and obtain SPEP result.
Assessment / Plan
Assessment / Plan
Impression/Plan:
Symptomatic Hypercalcemia -non PTH dependent
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
-s/p IV Pamidronate in ED
- Improved clinical symptoms with improvement in Ca.
- Pending PTHrP and 1,25 hydroxyVitamin D
- Appt Renal input - SPEP ordered
CXR Mild opacity in the left base favored to represent atelectasis.
Lumbar spine xray without no acute abnormalities
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 Consulted oncology -recommend bx .
Discussed with IR Dr. De La Paz who would like a repeat imaging with contrast to look at blood vessels in the mass prior to biopsy. With chronic kidney disease and now mass which could be lymphoma check a uric acid and SPEP levels before doing a CT
with contrast. Will also explore MRI with contrast if it is good alternative.
Left leg swelling - obtain US
#AUGIE on CKD 3
- Improved to baseline
#DM 2 - Blood sugars under goal
#HTN - under goal
#Hypothyroidism
-TSH WNL, cont Synthroid
DW Onc today
Anticipated Discharge: > 48 hours
Subjective/Interval History
-
Date of Service: November 08, 2023
Voices no specific complaints.
Objective Data
-
Labs:
Laboratory Results
11/08/23
08:23
WBC 5.2
Hgb 12.8
Hct 37.5
Plt Count 168
Sodium 140
Potassium 3.9
Chloride 107
Carbon Dioxide 21 L
BUN 18 H
Creatinine 1.2 H
Glucose 95
Calcium 10.5 H
Vital Signs:
Vital Signs
Temp Pulse Resp BP Pulse Ox
97.5 F 81 18 167/90 95
11/08/23 08:21 11/08/23 09:37 11/08/23 08:21 11/08/23 09:37 11/08/23 08:21
I&O
11/07/23 11/08/23 11/09/23
06:59 06:59 06:59
Intake Total 480 / 480 1200 / 1200
Output Total 400 / 400
Balance 80 / 80 1200 / 1200
Review of Systems
-
Respiratory: Denies Trouble Breathing
Cardiac: Denies Chest Pain
Abdomen/GI: Denies Abdominal Pain, Nausea or Vomiting
Neuro: Denies Dizzy
Physical Exam
-
General: No Apparent Distress
HEENT: Moist Mucous Membranes
Respiratory: Clear to Auscultation
Cardiac: Regular Rhythm and S1/S2
GI: Soft
Musculoskeletal: Edema, Left Lower Extrem
Neuro: AO x 3
Psych: Calm; Negative Confused or Agitated
Data Reviewed
-
Labs: Labs Reviewed by me
--- NOTE | 2023-11-08 10:46 | CON.ONC ---
Impression
Impression
Hypercalcemia likely associated with malignancy improved to
Reported abnormal serum protein electrophoresis lambda specificity
Large mass measuring 8.8 x 6.6 x 1.7 cm encasing the abdominal aorta and left renal artery suspicious for malignancy
Diabetes mellitus
Hypertension
Hypothyroid
Renal insufficiency
Plan
Plan
Monitor creatinine
Additional imaging at the request of IR to delineate vascular structures
Anticipate biopsy Friday
Would obtain uric acid and LDH
Consider allopurinol if elevated
Long reassuring discussion with patient and outlining need for additional testing as an outpatient
Would anticipate PET CT scan for malignant diagnosis as anticipated
Patient History
History of Present Illness
83 year old with PMH for HTN on Losartan, HLD on red yeast rice, hypothyroidism on LT4, type 2 DM on metformin, Trulicity, CKD3 baseline cr 1.2 diabetic nephroapthy, remote history of breast cancer 2014 s/p lumpectomy and XRT, no chemo required, has
been in remission completed adjuvant AR therapy followed by by Yariel at [facility]. She has generalized weakness, accompanied with left sided lower abdominal pain with low back pain for past 2 weeks. Stated poor appetite with wt loss of
20lbs in 5months. She also notes constipation. She is slow respond with prior history of deconditioned from reaction to prednisone summer that caused severe weakness. On presentation patient was noted to have hypercalcemia 13.[address] Hartley
nephrology on 11/03 as first visit and labs were repeated noting calcium 15.2 and cr up at 1.6 from baseline 1.2 recommended to come to ER. There is also reports of an outpatient serum protein electrophoresis showing monoclonal protein. She
received IVF NS with improvement in hypercalcemia and creatinine baseline.
Past-Medical/Surgical History
Past Medical History
type 2 Dm
hypothyroidism
CKD stage 3
htn
breast cancer
Past Surgical History: Other (right breast lumpectomy right thyroid lobectomy tubal ligation)
Social History
Tobacco: Non-Smoker
Alcohol: None
Drug: None
Living: With Family
Family History
Patient Medication
�Medication �Instructions �Recorded �Confirmed �Last Taken �Type
cholecalciferol (vitamin D3) 50 50 mcg PO DAILY Supplement 11/04/23 11/04/23 11/04/23 History
mcg (2,000 unit) tablet
docusate sodium 100 mg capsule 100 mg PO DAILY PRN constipation 11/04/23 11/04/23 2 Days Ago History
(Stool Softener) ~11/02/23
dulaglutide 1.5 mg/0.5 mL 1.5 mg SC QWEEK diabetes 11/04/23 11/04/23 Unknown History
subcutaneous pen injector
(Trulicity)
levothyroxine 88 mcg tablet 88 mcg PO SUMOTUTHFRSA@0800 Thyroid 11/04/23 11/04/23 11/04/23 History
(Synthroid)
levothyroxine 88 mcg tablet 176 mcg PO WE@0800 Thyroid 11/04/23 11/04/23 10/29/23 History
(Synthroid)
losartan 50 mg tablet 50 mg PO BID Blood Pressure 11/04/23 11/04/23 11/04/23 History
metformin 500 mg tablet,extended 500 mg PO BID diabetes 11/04/23 11/04/23 11/04/23 History
release 24 hr
red yeast rice 40 mg PO BID Supplement 11/04/23 11/04/23 11/04/23 History
tramadol 37.5 mg-acetaminophen 325 1 tab PO BIDPRN PRN mild pain 11/04/23 11/04/23 11/04/23 02:00 History
mg tablet
vitamin B complex 1 tab PO DAILY Supplement 11/04/23 11/04/23 11/04/23 History
Active Medications
Generic Name Dose Route Start Last Admin
Trade Name Freq PRN Reason Stop Dose Admin
Acetaminophen 650 mg 11/04/23 20:17 11/05/23 20:34
Acetaminophen 325 Mg Tablet PO 12/02/23 20:16 650 mg
Q4HPRN PRN Administration
mild pain/[place]/temp> 100.4F
Acetaminophen 325 mg 11/04/23 20:54
Acetaminophen 325 Mg Tablet PO 12/02/23 20:53
BIDPRN PRN
mild pain
Amlodipine Besylate 5 mg 11/06/23 15:00 11/08/23 09:37
Amlodipine 5 Mg Tablet PO 12/04/23 14:59 5 mg
DAILY LOUISE Administration
Bisacodyl 10 mg 11/04/23 20:17
Bisacodyl 10 Mg Rectal Suppository RECTAL 12/02/23 20:16
[id number] PRN
constipation
Dextrose 12.5 grams 11/04/23 20:17
Dextrose 50% (0.5 Grams/Ml) 50 Ml Syringe IV 12/02/23 20:16
[id number] PRN
hypoglycemia
Protocol
Glucagon 1 mg 11/04/23 20:17
Glucagon 1 Mg Vial IM 12/02/23 20:16
PRN PRN
hypoglycemia
Protocol
Heparin Sodium 5,000 units 11/04/23 20:17 11/08/23 09:36
Heparin 5,000 Units/Ml 1 Ml Vial SC 12/02/23 20:16 5,000 units
Q12 LOUISE Administration
Hydralazine HCl 5 mg 11/04/23 20:17 11/05/23 03:23
Hydralazine 20 Mg/Ml Vial IV 12/02/23 20:16 5 mg
Q6HPRN PRN Administration
htn SBP>160,DBP>100
Sodium Chloride 1,000 mls @ 80 mls/hr 11/08/23 05:00 11/08/23 05:26
Nss IV 1,000 mls
.[id number] LOUISE Administration
Insulin Aspart 0 units 11/05/23 07:30 11/08/23 09:06
Insulin Aspart Low Resistance 300 Units/3 Ml Pen.Injctr SC 12/03/23 07:29 Not Given
AC LOUISE
Protocol
Levothyroxine Sodium 88 mcg 11/06/23 06:00 11/08/23 05:26
Levothyroxine 88 Mcg Tablet PO 12/04/23 05:59 88 mcg
SuMoTuThFrSa@599 LOUISE Administration
Levothyroxine Sodium 176 mcg 11/05/23 06:00 11/05/23 05:48
Levothyroxine 88 Mcg Tablet PO 12/03/23 05:59 176 mcg
WE@599 LOUISE Administration
Lidocaine 1 patch 11/04/23 23:15 11/07/23 20:57
Lidocaine 4% Topical Patch TOPICAL 12/02/23 23:14 1 patch
DAILY@1999 LOUISE Administration
Losartan Potassium 50 mg 11/07/23 12:00 11/07/23 12:35
Losartan 50 Mg Tablet PO 12/05/23 11:59 50 mg
BID LOUISE Administration
Menthol/Methyl Salicylate 1 applic 11/06/23 04:00 11/08/23 09:30
Bengay-Like Cream TOPICAL 12/04/23 03:59 Not Given
TID LOUISE
Patch Removal 0 patch 11/05/23 08:00 11/08/23 09:32
Remove Lidocaine Patch REMOVE 12/03/23 07:59 1 patch
DAILY@799 LOUISE Administration
Polyethylene Glycol 17 grams 11/04/23 20:17
Polyethylene Glycol Powder 17 Grams Packet PO 12/02/23 20:16
DAILYPRN PRN
constipation
Senna/Docusate Sodium 1 tablet 11/04/23 20:17 11/07/23 04:11
Docusate W/Senna (Gabby-Colace) Tablet PO 12/02/23 20:16 1 tablet
BIDPRN PRN Administration
constipation
Sodium Chloride 0 flush 11/04/23 21:00
Sodium Chloride 0.9% (Flush) Syringe IV 12/02/23 20:59
PER PROTOCOL LOUISE
Tramadol HCl 50 mg 11/04/23 20:53 11/07/23 21:19
Tramadol Hcl 50 Mg Tablet PO 12/02/23 20:52 50 mg
BIDPRN PRN Administration
mild pain
Review of Systems
-
12 point review systems fails to elicit additional complaints other than those reviewed in the HPI
Physical Exam
-
Physical Exam
General: Awake, Alert, Oriented, AOx3, No Distress and Nontoxic
HEENT: EOMI, Anicteric, Facial Symmetry, Neck Supple and No JVD
Respiratory: Clear
Cardiac: S1/S2 and Regular Rate/Rhythm
Abdomen: Soft, Nontender and Nondistended
Genito-urinary: No Costovertebral Tender
Extremities: Asymmetry with slight enlargement of the left lower extremity possibly secondary to lymphatic congestion
Skin: No Rash (ham[place] skin from sun burn upper back), Warm and Dry
Neuro: Nonfocal/Grossly Intact
Psych: Mood/afflect pleasant and Appropriate
Labs
Lab Results
WBC 5.2 10^3/uL (4.8-10.8) 11/08/23 08:23
RBC 4.40 10^6/uL (4.20-5.40) 11/08/23 08:23
Hgb 12.8 g/dL (12.0-16.0) 11/08/23 08:23
Hct 37.5 % (37.0-47.0) 11/08/23 08:23
MCV 85.2 fL (81.0-99.0) 11/08/23 08:23
MCH 29.1 pg (27.0-31.0) 11/08/23 08:23
MCHC 34.1 g/dL (33.0-37.0) 11/08/23 08:23
RDW 14.9 % (11.5-14.5) H 11/08/23 08:23
Plt Count 168 10^3/uL (130-400) 11/08/23 08:23
MPV 10.5 fL (7.4-10.4) H 11/08/23 08:23
Abs Immat Gran (auto) 0.0 10^3/uL (0-0.05) 11/04/23 17:19
Absolute Neuts (auto) 4.7 10^3/uL (1.4-6.5) 11/04/23 17:19
Absolute Lymphs (auto) 1.3 10^3/uL (1.2-3.4) 11/04/23 17:19
Absolute Monos (auto) 0.8 10^3/uL (0.1-0.6) H 11/04/23 17:19
Absolute Eos (auto) 0.0 10^3/uL (0-0.7) 11/04/23 17:19
Absolute Basos (auto) 0.1 10^3/uL (0-0.2) 11/04/23 17:19
Immature Gran % 0.4 % (0-0.5) 11/04/23 17:19
Neutrophils % 68.4 % (42.2-75.2) 11/04/23 17:19
Lymphocytes % 19.2 % (20.5-51.1) L 11/04/23 17:19
Monocytes % 10.9 % (1.7-9.3) H 11/04/23 17:19
Eosinophils % 0.4 % (0-6) 11/04/23 17:19
Basophils % 0.7 % (0-2) 11/04/23 17:19
Creatinine 1.2 mg/dL (0.6-1.0) H 11/08/23 08:23
Vital Signs
Vital Signs
Temp Pulse Resp BP Pulse Ox
97.5 F 81 18 167/90 95
11/08/23 08:21 11/08/23 09:37 11/08/23 08:21 11/08/23 09:37 11/08/23 08:21
--- NOTE | 2023-11-08 10:49 | W.PN.NEPH.PH ---
Today's Communication / Plan
-
Observe
Add back losartan for hypertension control
Assessment/Plan
-
IMP:
Symptomatic Hypercalcemia
Hypomagnesemia
AUGIE on CKD 3
mild microalbuminuria
DM 2
HTN
Hypothyroidism
Plan:
A/w hypercalcemia 15.3 and AUGIE cr 1.5
AUGIE prerenal , better with IVF , cr at baseline now 1.2
Calcium down to 10.5
UA with mild pyuria, follow bladder scan
hypercalcemia-non PTH dependant so no hyperparathyroidism
vit D 25 normal, normal TSH. pending PTHrp and paraprotein w/u, check U PCR
Will likely pursue MRI with gadolinium to visualize retroperitoneum
Can hold off further IV fluid
s/p Pamidronate on 11/03,
Bp are high, added Amlodipine. Will add back losartan if CAT scan not to be pursued today
hold all vit D and adrienne supplements
Strong concern for malignant process potentiating hypercalcemia given large conglomerate soft tissue mass within left retroperitoneum will likely require biopsy
d/w pt and nursing
d/w primary
-
-
Date of Service: November 08, 2023
CC / HPI / ROS
-
Chief Complaint:
AUGIE, hyperclacemia
History of Present Illness:
cr stable 1.2, subjectively non oliguric
Calcium at 10.5
BP are high
Review of Systems:
no cp or sob
feels well
no edema
Labs
-
Labs:
WBC 5.2 10^3/uL (4.8-10.8) 11/08/23 08:23
RBC 4.40 10^6/uL (4.20-5.40) 11/08/23 08:23
Hgb 12.8 g/dL (12.0-16.0) 11/08/23 08:23
Hct 37.5 % (37.0-47.0) 11/08/23 08:23
Plt Count 168 10^3/uL (130-400) 11/08/23 08:23
Sodium 140 mmol/L (135-145) 11/08/23 08:23
Potassium 3.9 mmol/L (3.5-5.1) 11/08/23 08:23
Chloride 107 mmol/L (98-107) 11/08/23 08:23
Carbon Dioxide 21 mmol/L (22-30) L 11/08/23 08:23
BUN 18 mg/dl (7-17) H 11/08/23 08:23
Creatinine 1.2 mg/dL (0.6-1.0) H 11/08/23 08:23
eGFR 45.48 11/08/23 08:23
Glucose 95 mg/dl (70-99) 11/08/23 08:23
Calcium 10.5 mg/dl (8.4-10.2) H 11/08/23 08:23
Phosphorus 3.3 mg/dl (2.5-4.5) 11/04/23 17:19
Albumin 3.9 g/dl (3.5-5.0) 11/04/23 17:19
Physical Exam
-
Vital Signs:
Vital Signs
Temp Pulse Resp BP Pulse Ox
97.5 F 81 18 167/90 95
11/08/23 08:21 11/08/23 09:37 11/08/23 08:21 11/08/23 09:37 11/08/23 08:21
Cardiovascular:: Regular rate and rhythm
Respiratory:: Bilateral: CTA
Lung Excursion:: Normal
Abdomen:: Nontender and Soft
Extremity Edema:: None: Bilateral:
Puckett Catheter: No
[2023-11-08] MEDS: COZAAR 50 MG PO ×2 (12:05→20:46)
[2023-11-08 12:12] LABS: Glucose - Point of Care 126 mg/dl (70-99)
[2023-11-08 15:52] VITALS: BP 195/89
[2023-11-08] MEDS: APRESOLINE 5 MG IV (16:11)
[2023-11-08 16:41] LABS: Glucose - Point of Care 85 mg/dl (70-99)
[2023-11-08] MEDS: NSS IV (18:16)
[2023-11-08] MEDS: ULTRAM 50 MG PO (20:45)
[2023-11-08] MEDS: LIDOCAINE 4% PATCH 1 PATCH TOPICAL (20:46)
[2023-11-08] MEDS: BenGay-Like 1 APPLIC TOPICAL (21:14)
[2023-11-08 21:42] LABS: Glucose - Point of Care 164 mg/dl (70-99)
[2023-11-08 23:29] VITALS: BP 122/69
[2023-11-09] MEDS: NSS IV (03:32)
[2023-11-09] MEDS: SYNTHROID 88 MCG PO (05:45)
[2023-11-09 06:54] LABS: Hematocrit 32.9 % (37.0-47.0); Hemoglobin 11.2 g/dL (12.0-16.0); Mean Corpuscular Volume 85.2 fL (81.0-99.0); Platelet Count 177 10^3/uL (130-400); Red Blood Cell Count 3.86 10^6/uL (4.20-5.40); Red Cell Dist. Width 15.1 % (11.5-14.5); White Blood Cell Count 4.9 10^3/uL (4.8-10.8)
[2023-11-09 07:30] VITALS: BP 176/83
[2023-11-09 07:39] LABS: Blood Urea Nitrogen 19 mg/dl (7-17); Calcium 10.3 mg/dl (8.4-10.2); Carbon Dioxide 23 mmol/L (22-30); Chloride 109 mmol/L (98-107); Estimated Creatinine Clearance 28 ml/min; Glucose 89 mg/dl (70-99); LDH 223 U/L (120-246); Potassium 3.8 mmol/L (3.5-5.1); Sodium 140 mmol/L (135-145); eGFR 41.31
[2023-11-09 08:04] LABS: Glucose - Point of Care 97 mg/dl (70-99)
[2023-11-09] MEDS: NOVOLOG FLEXPEN-LOW RESISTANCE SC ×3 (08:32→18:18)
[2023-11-09] MEDS: NORVASC 5 MG PO (09:57)
[2023-11-09] MEDS: BenGay-Like 1 APPLIC TOPICAL ×2 (09:57→21:01)
[2023-11-09] MEDS: HEPARIN 5000 UNITS SC ×2 (09:57→20:52)
[2023-11-09] MEDS: COZAAR 50 MG PO ×2 (09:57→20:53)
[2023-11-09 12:02] LABS: Glucose - Point of Care 156 mg/dl (70-99)
--- NOTE | 2023-11-09 12:02 | W.PN.NEPH.PH ---
Today's Communication / Plan
-
Follow BMP
Assessment/Plan
-
IMP:
Symptomatic Hypercalcemia
Hypomagnesemia
AUGIE on CKD 3
mild microalbuminuria
DM 2
HTN
Hypothyroidism
Plan:
A/w hypercalcemia 15.3 and AUGIE cr 1.5
AUGIE prerenal , better with IVF , cr at baseline now 1.3
Calcium down to 10.3
UA with mild pyuria, follow bladder scan
hypercalcemia-non PTH dependant so no primary hyperparathyroidism
vit D 25 normal, normal TSH. pending PTHrp and paraprotein w/u, check U PCR
Will likely pursue MRI with gadolinium to visualize retroperitoneum
Can hold off further IV fluid
s/p Pamidronate on 11/03,
Bp are high, added Amlodipine. Will add back losartan if CAT scan not to be pursued today
hold all vit D and adrienne supplements
Strong concern for malignant process potentiating hypercalcemia given large conglomerate soft tissue mass within left retroperitoneum will likely require biopsy
d/w pt and nursing
d/w primary
-
-
Date of Service: November 09, 2023
CC / HPI / ROS
-
Chief Complaint:
AUGIE, hyperclacemia
History of Present Illness:
cr stable 1.3, subjectively non oliguric
Calcium at 10.3
BP are high
Review of Systems:
no cp or sob
feels well
no edema
Labs
-
Labs:
WBC 4.9 10^3/uL (4.8-10.8) 11/09/23 06:06
RBC 3.86 10^6/uL (4.20-5.40) L 11/09/23 06:06
Hgb 11.2 g/dL (12.0-16.0) L 11/09/23 06:06
Hct 32.9 % (37.0-47.0) L 11/09/23 06:06
Plt Count 177 10^3/uL (130-400) 11/09/23 06:06
Sodium 140 mmol/L (135-145) 11/09/23 06:06
Potassium 3.8 mmol/L (3.5-5.1) 11/09/23 06:06
Chloride 109 mmol/L (98-107) H 11/09/23 06:06
Carbon Dioxide 23 mmol/L (22-30) 11/09/23 06:06
BUN 19 mg/dl (7-17) H 11/09/23 06:06
Creatinine 1.3 mg/dL (0.6-1.0) H 11/09/23 06:06
eGFR 41.31 11/09/23 06:06
Glucose 89 mg/dl (70-99) 11/09/23 06:06
Calcium 10.3 mg/dl (8.4-10.2) H 11/09/23 06:06
Phosphorus 3.3 mg/dl (2.5-4.5) 11/04/23 17:19
Albumin 3.9 g/dl (3.5-5.0) 11/04/23 17:19
Physical Exam
-
Vital Signs:
Vital Signs
Temp Pulse Resp BP Pulse Ox
97.4 F 87 16 176/83 97
11/09/23 07:30 11/09/23 07:30 11/09/23 07:30 11/09/23 07:30 11/09/23 08:30
Cardiovascular:: Regular rate and rhythm
Respiratory:: Bilateral: CTA
Lung Excursion:: Normal
Abdomen:: Nontender and Soft
Extremity Edema:: None: Bilateral:
Puckett Catheter: No
Labs
-
Labs:
WBC 4.9 10^3/uL (4.8-10.8) 11/09/23 06:06
RBC 3.86 10^6/uL (4.20-5.40) L 11/09/23 06:06
Hgb 11.2 g/dL (12.0-16.0) L 11/09/23 06:06
Hct 32.9 % (37.0-47.0) L 11/09/23 06:06
Plt Count 177 10^3/uL (130-400) 11/09/23 06:06
Sodium 140 mmol/L (135-145) 11/09/23 06:06
Potassium 3.8 mmol/L (3.5-5.1) 11/09/23 06:06
Chloride 109 mmol/L (98-107) H 11/09/23 06:06
Carbon Dioxide 23 mmol/L (22-30) 11/09/23 06:06
BUN 19 mg/dl (7-17) H 11/09/23 06:06
Creatinine 1.3 mg/dL (0.6-1.0) H 11/09/23 06:06
eGFR 41.31 11/09/23 06:06
Glucose 89 mg/dl (70-99) 11/09/23 06:06
Calcium 10.3 mg/dl (8.4-10.2) H 11/09/23 06:06
Phosphorus 3.3 mg/dl (2.5-4.5) 11/04/23 17:19
Albumin 3.9 g/dl (3.5-5.0) 11/04/23 17:19
--- NOTE | 2023-11-09 12:55 | W.PN.HOSP.TC ---
Addendum entered and electronically signed by Manuel Diaz MD 11/09/23 14:02:
Confusion on adx sec to metabolic encephalopathy
Original Note:
Today's Communication/Plan
-
CT A/P with contrast and IV fluids
Assessment / Plan
Assessment / Plan
Impression/Plan:
Symptomatic Hypercalcemia -non PTH dependent
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
-s/p IV Pamidronate in ED
- Improved clinical symptoms with improvement in Ca.
- PTHrP and 1,25 hydroxyVitamin D elevated going in with malignant hypercalcemia
Renal following
CXR Mild opacity in the left base favored to represent atelectasis.
Lumbar spine xray without no acute abnormalities
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 Consulted oncology -recommend bx .
Discussed with IR Dr. De La Paz who would like a repeat imaging with contrast to look at blood vessels in the mass prior to biopsy.
LDH is normal , mild elevation of uric acid noted. SPEP from 11/04/[address] Dixon 11/07- since BX would be CT guided , CT with contrast images would be better than MRI for biopsy purposes. Will do IV fluid prophylaxis prior to CT .
Left leg swelling - neg US
#AUGIE on CKD 3
- Improved to baseline
#DM 2 - Blood sugars under goal
#HTN - under goal
#Hypothyroidism
-TSH WNL, cont Synthroid
DW Onc today
Anticipated Discharge: 24 - 48 hours
Subjective/Interval History
-
Date of Service: November 09, 2023
no new complaints.
Objective Data
-
Labs:
Laboratory Results
11/09/23
06:06
WBC 4.9
Hgb 11.2 L
Hct 32.9 L
Plt Count 177
Sodium 140
Potassium 3.8
Chloride 109 H
Carbon Dioxide 23
BUN 19 H
Creatinine 1.3 H
Glucose 89
Calcium 10.3 H
Vital Signs:
Vital Signs
Temp Pulse Resp BP Pulse Ox
97.4 F 87 16 176/83 97
11/09/23 07:30 11/09/23 07:30 11/09/23 07:30 11/09/23 07:30 11/09/23 08:30
I&O
11/08/23 11/09/23 11/10/23
06:59 06:59 06:59
Intake Total 1200 / 1200 1450 / 1450
Balance 1200 / 1200 1450 / 1450
Review of Systems
-
Constitutional: Denies Fever
Respiratory: Denies Trouble Breathing
Cardiac: Denies Chest Pain
Abdomen/GI: Denies Abdominal Pain, Nausea or Vomiting
Neuro: Denies Dizzy
Physical Exam
-
General: No Apparent Distress
HEENT: Moist Mucous Membranes
Respiratory: Clear to Auscultation
Cardiac: Regular Rhythm and S1/S2
GI: Soft
Neuro: AO x 3
Psych: Calm; Negative Confused
Data Reviewed
-
Labs: Labs Reviewed by me
[2023-11-09] MEDS: NSS 1000 IV (14:20)
[2023-11-09 15:15] VITALS: BP 168/75
[2023-11-09] MEDS: BenGay-Like TOPICAL (16:38)
[2023-11-09 17:39] VITALS: BP 156/75
[2023-11-09 18:01] LABS: Glucose - Point of Care 170 mg/dl (70-99)
[2023-11-09] MEDS: LIDOCAINE 4% PATCH 1 PATCH TOPICAL (20:40)
[2023-11-09 21:25] LABS: Glucose - Point of Care 163 mg/dl (70-99)
[2023-11-09 23:22] VITALS: BP 166/83
[2023-11-10 07:14] VITALS: BP 171/85
[2023-11-10] MEDS: SYNTHROID 88 MCG PO (07:16)
[2023-11-10] MEDS: NOVOLOG FLEXPEN-LOW RESISTANCE SC ×3 (08:27→17:48)
[2023-11-10] MEDS: HEPARIN 5000 UNITS SC ×2 (08:28→19:46)
[2023-11-10] MEDS: NORVASC 5 MG PO (08:28)
[2023-11-10] MEDS: COZAAR 50 MG PO ×2 (08:29→19:46)
[2023-11-10 08:34] LABS: Glucose - Point of Care 121 mg/dl (70-99)
[2023-11-10] MEDS: BenGay-Like 1 APPLIC TOPICAL (08:43)
[2023-11-10 08:59] LABS: Blood Urea Nitrogen 22 mg/dl (7-17); Calcium 10.9 mg/dl (8.4-10.2); Carbon Dioxide 19 mmol/L (22-30); Chloride 109 mmol/L (98-107); Estimated Creatinine Clearance 30 ml/min; Glucose 116 mg/dl (70-99); Potassium 3.9 mmol/L (3.5-5.1); Sodium 138 mmol/L (135-145); eGFR 45.48
--- NOTE | 2023-11-10 11:38 | W.PN.NEPH.PH ---
Today's Communication / Plan
-
- planning for biopsy tomorrow with heme/onc
Assessment/Plan
-
IMP:
Symptomatic Hypercalcemia
Hypomagnesemia
AUGIE on CKD 3
mild microalbuminuria
DM 2
HTN
Hypothyroidism
Plan:
A/w hypercalcemia 15.3 and AUGIE cr 1.5
AUGIE prerenal , better with IVF , cr at baseline now 1.2
Calcium down to 10.9
UA with mild pyuria, follow bladder scan
hypercalcemia-non PTH dependant so no primary hyperparathyroidism
vit D 25 normal, normal TSH. kappa: lambda ratio elevated at 6.5, PTHrP slightly eelvated at 3.7
[address] scan with concern for lymphoma, planning for biopsy with heme/onc tomorrow
Can hold off further IV fluid
s/p Pamidronate on 11/03,
BP high, on amlodipine and losartan.
hold all vit D and adrienne supplements
d/w pt and nursing
d/w primary
-
-
Date of Service: November 10, 2023
CC / HPI / ROS
-
Chief Complaint:
AUGIE, hyperclacemia
History of Present Illness:
cr stable 1.2, subjectively non oliguric
Calcium at 10.9
BP are high
Review of Systems:
no cp or sob
feels well
no edema
Labs
-
Labs:
WBC 4.9 10^3/uL (4.8-10.8) 11/09/23 06:06
RBC 3.86 10^6/uL (4.20-5.40) L 11/09/23 06:06
Hgb 11.2 g/dL (12.0-16.0) L 11/09/23 06:06
Hct 32.9 % (37.0-47.0) L 11/09/23 06:06
Plt Count 177 10^3/uL (130-400) 11/09/23 06:06
Sodium 138 mmol/L (135-145) 11/10/23 07:03
Potassium 3.9 mmol/L (3.5-5.1) 11/10/23 07:03
Chloride 109 mmol/L (98-107) H 11/10/23 07:03
Carbon Dioxide 19 mmol/L (22-30) L 11/10/23 07:03
BUN 22 mg/dl (7-17) H 11/10/23 07:03
Creatinine 1.2 mg/dL (0.6-1.0) H 11/10/23 07:03
eGFR 45.48 11/10/23 07:03
Glucose 116 mg/dl (70-99) H 11/10/23 07:03
Calcium 10.9 mg/dl (8.4-10.2) H 11/10/23 07:03
Phosphorus 3.3 mg/dl (2.5-4.5) 11/04/23 17:19
Albumin 3.9 g/dl (3.5-5.0) 11/04/23 17:19
Physical Exam
-
Vital Signs:
Vital Signs
Temp Pulse Resp BP Pulse Ox
97.8 F 96 16 171/85 94
11/10/23 07:14 11/10/23 08:28 11/10/23 07:14 11/10/23 08:28 11/10/23 07:14
Cardiovascular:: Regular rate and rhythm
Respiratory:: Bilateral: CTA
Lung Excursion:: Normal
Abdomen:: Nontender and Soft
Bowel Sounds:: Normal
Extremity Edema:: None: Bilateral:
Puckett Catheter: No
--- NOTE | 2023-11-10 11:42 | W.PN.HOSP.TC ---
Today's Communication/Plan
-
Follow IR plan on bx
Follow CM on placement
DC planning
Assessment / Plan
Assessment / Plan
Impression/Plan:
Symptomatic Hypercalcemia -non PTH dependent
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
-s/p IV Pamidronate in ED
- Improved clinical symptoms with improvement in Ca.
- PTHrP and 1,25 hydroxyVitamin D elevated going in with malignant hypercalcemia
Renal following
CXR Mild opacity in the left base favored to represent atelectasis.
Lumbar spine xray without no acute abnormalities
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 Consulted oncology -recommend bx .
Discussed with IR Dr. De La Paz who would like a repeat imaging with contrast to look at blood vessels in the mass prior to biopsy.
LDH is normal , mild elevation of uric acid noted. SPEP from 11/04/[address] Dixon 11/07- since BX would be CT guided , CT with contrast images would be better than MRI for biopsy purposes.
CT A/P with contrast completed yesterday -result noted
Cr this am 1.2 stable
IR bx pending
Left leg swelling - neg US
#AUGIE on CKD 3
- Improved to baseline
#DM 2 - Blood sugars under goal
#HTN - under goal
#Hypothyroidism
-TSH WNL, cont Synthroid
Depending on IR plan of bx and bed availability in Rehab will dc today vs tomorrow.
Anticipated Discharge: Within 24 hours
Subjective/Interval History
-
Date of Service: November 10, 2023
she was bit tearful today. Seems overwhelmed by all testing and anxious about new findings.
Voices no specific complaints.
Objective Data
-
Labs:
Laboratory Results
11/10/23
07:03
Sodium 138
Potassium 3.9
Chloride 109 H
Carbon Dioxide 19 L
BUN 22 H
Creatinine 1.2 H
Glucose 116 H
Calcium 10.9 H
Vital Signs:
Vital Signs
Temp Pulse Resp BP Pulse Ox
97.8 F 96 16 171/85 94
11/10/23 07:14 11/10/23 08:28 11/10/23 07:14 11/10/23 08:28 11/10/23 07:14
I&O
11/09/23 11/10/23 11/11/23
06:59 06:59 06:59
Intake Total 1450 / 1450 1320 / 1320
Balance 1450 / 1450 1320 / 1320
Review of Systems
-
Respiratory: Denies Trouble Breathing
Cardiac: Denies Chest Pain
Abdomen/GI: Denies Abdominal Pain, Nausea or Vomiting
Neuro: Denies Dizzy
Physical Exam
-
General: No Apparent Distress
HEENT: Moist Mucous Membranes
Respiratory: Clear to Auscultation
Cardiac: Regular Rhythm and S1/S2
GI: Soft
Neuro: AO x 3
Psych: Calm and Anxious; Negative Confused or Agitated
Data Reviewed
-
Labs: Labs Reviewed by me
[2023-11-10] MEDS: ATIVAN 0.5 MG PO (11:58)
[2023-11-10 12:57] LABS: Glucose - Point of Care 169 mg/dl (70-99)
[2023-11-10] MEDS: BenGay-Like TOPICAL ×2 (15:41→19:46)
[2023-11-10 15:46] VITALS: BP 171/74
[2023-11-10 16:45] LABS: Glucose - Point of Care 186 mg/dl (70-99)
--- NOTE | 2023-11-10 16:50 | CM ---
I met with Maureen and her son Agus earlier today to discuss discharge plans. Maureen did not have a good night sleep last night and wa having a very bad day. She declined to participate in therapy today, as she feels that she needs to rest to bouce
back from the rough night. Support offered.
[facility] is able to accept for admission tomorrow, pending clearance for discharge. Maureen and her son were please with this.
Plan: CM to follow to arrange transfer to [facility] via w/c van at discharge.
[2023-11-10] MEDS: LIDOCAINE 4% PATCH 1 PATCH TOPICAL (19:46)
--- NOTE | 2023-11-10 21:26 | W.PN.ONC2 ---
Today's Communication / Plan
-
Await biopsy. If aggressive lymphoma such as large cell is confirmed, would start mini-CHOP as inpt with close monitoring of renal function and blood sugar.
Impression
Impression
Hypercalcemia likely associated with malignancy improved but slightly increased today
So far no evidence of MGUS on labs done this admission - SPEP and UPEP are negative. Urine FLC's were done on random urine.
Large mass measuring 8.8 x 6.6 x 1.7 cm encasing the abdominal aorta and left renal artery suspicious for malignancy. Also with splenic mass and adrenal mass vs. extension of r/p mass.
Elevated uric acid
Diabetes mellitus
Hypertension
Hypothyroid
Renal insufficiency
Plan
Plan
Monitor creatinine
Anticipate biopsy Friday 11/10
Serum free light chains with next lab draw
Elevated uric acid noted, start allopurinol 100 mg daily
Pamidronate again 11/10 with Ca creeping up again
If dx of aggressive lymphoma is confirmed, suggest that she start treatment as an inpt for the following reasons:
- she has DM and reports that her sugars have gone into the 400's previously with steroids
- she would be at risk of tumor lysis if aggressive lymphoma, would need hydration
- combination of dehydration from hyperglycemia and tumor lysis would put her at risk of renal failure and she has borderline kidney function at baseline
- given presentation with hypercalemia, she should start treatment sooner than later. Would not delay treatment to get PET scan.
Subjective/Objective
Chief Complaint
Heme/Onc follow up of retroperitoneal/spleen/adrenal masses and hypercalcemi
Subjective
Denies new complaint. Has questions about yesterday's CT scan and next steps.
Vital Signs:
Vital Signs
Temp Pulse Resp BP Pulse Ox
97.7 F 107 20 171/74 96
11/10/23 15:46 11/10/23 15:46 11/10/23 15:46 11/10/23 15:46 11/10/23 15:46
Lab Results:
Laboratory Data
WBC 4.9 10^3/uL (4.8-10.8) 11/09/23 06:06
Hgb 11.2 g/dL (12.0-16.0) L 11/09/23 06:06
Plt Count 177 10^3/uL (130-400) 11/09/23 06:06
eGFR 45.48 11/10/23 07:03
Physical Exam
HEENT: Moist Mucous Membranes; No Jaundice
Cardiology: Normal Sinus Rhythm, S1 and S2
Pulmonary: Clear; No Wheezes
GI: Soft; No Distended
Extremities: Pulses Present and No C/C/E
Neuro: Non Focal
Review of Systems
Review of Systems
Constitutional: Reports Fatigue; Denies Fever
Head: Denies Sore Throat or Hearing Loss
Respiratory: Denies Dyspnea or Cough
Cardiovascular: Denies Chest Pain or Palpitations
Gastrointestinal: Denies Nausea/Vomiting or Diarrhea
Genitourinary: Denies Hematuria
Skin: Denies Rash or Pruritis
Neurological: Denies Headache or Numbness
Psychiatric: Denies Depression or Insomnia
Hem/Lymphatic: Denies Easy Bruising or Night Sweats
Orders
Orders
Orders From Last 24 Hours
11/11/23 08:00
Allopurinol [Zyloprim] 100 mg PO DAILY
11/11/23 09:00
Pamidronate Disodium [Aredia] 90 mg 0.9% Sodium Chloride 250 ml [Nss] 250 ml IV ONCE
[2023-11-10 22:02] LABS: Glucose - Point of Care 112 mg/dl (70-99)
[2023-11-10 23:44] VITALS: BP 157/81
[2023-11-11] VITALS (7 sets, daily range): BP systolic 94–164; BP diastolic 60–75
[2023-11-11] MEDS: SYNTHROID 88 MCG PO (03:18)
[2023-11-11 06:38] LABS: INR 1.05; PT 13.5 Sec (11.4-14.6)
[2023-11-11 07:01] LABS: Glucose - Point of Care 136 mg/dl (70-99)
[2023-11-11] MEDS: NOVOLOG FLEXPEN-LOW RESISTANCE SC ×3 (08:36→17:47)
[2023-11-11] MEDS: BenGay-Like 1 APPLIC TOPICAL ×2 (08:38→17:46)
[2023-11-11] MEDS: NORVASC 5 MG PO (08:38)
[2023-11-11] MEDS: ZYLOPRIM 100 MG PO (08:39)
[2023-11-11] MEDS: COZAAR 50 MG PO ×2 (08:39→20:15)
[2023-11-11] MEDS: HEPARIN SC (08:58)
[2023-11-11] MEDS: AREDIA 280 MG IV (09:01)
[2023-11-11 11:39] LABS: Glucose - Point of Care 104 mg/dl (70-99)
--- NOTE | 2023-11-11 12:32 | W.PN.HOSP.TC ---
Today's Communication/Plan
-
IR BX
DC planning
Assessment / Plan
Assessment / Plan
Impression/Plan:
Symptomatic Hypercalcemia -non PTH dependent
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
-s/p IV Pamidronate in ED
- Improved clinical symptoms with improvement in Ca.
- PTHrP and 1,25 hydroxyVitamin D elevated going in with malignant hypercalcemia
Renal following
CXR Mild opacity in the left base favored to represent atelectasis.
Lumbar spine xray without no acute abnormalities
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 Consulted oncology -recommend bx .
Discussed with IR Dr. De La Paz who would like a repeat imaging with contrast to look at blood vessels in the mass prior to biopsy.
LDH is normal , mild elevation of uric acid noted. SPEP from 11/04/[address] Dixon 11/07- since BX would be CT guided , CT with contrast images would be better than MRI for biopsy purposes.
CT A/P with contrast completed 11/08 -result noted
Cr 1.2 stable
Await IR bx
Left leg swelling - neg US
#AUGIE on CKD 3
- Improved to baseline
#DM 2 - Blood sugars under goal
#HTN - under goal
#Hypothyroidism
-TSH WNL, cont Synthroid
DC to rehab today after biopsy if no plans for inpatient tx by Onc.
Anticipated Discharge: Today
Subjective/Interval History
-
Date of Service: November 11, 2023
Voices no specific complaints.
Objective Data
-
Labs:
Laboratory Results
11/11/23
06:01
PT 13.5
INR 1.05
Vital Signs:
Vital Signs
Temp Pulse Resp BP Pulse Ox
97.5 F 92 20 116/73 95
11/11/23 07:05 11/11/23 08:38 06/18/24 07:05 11/11/23 08:38 11/11/23 10:43
I&O
11/10/23 11/11/23 11/12/23
06:59 06:59 06:59
Intake Total 1320 / 1320 1020 / 1020
Balance 1320 / 1320 1020 / 1020
Review of Systems
-
Respiratory: Denies Trouble Breathing
Cardiac: Denies Chest Pain
Abdomen/GI: Denies Nausea or Vomiting
Neuro: Denies Dizzy
Physical Exam
-
General: No Apparent Distress
HEENT: Moist Mucous Membranes
Respiratory: Clear to Auscultation
Cardiac: Regular Rhythm and S1/S2
GI: Soft
Neuro: AO x 3
Psych: Calm
Data Reviewed
-
Labs: Labs Reviewed by me
--- NOTE | 2023-11-11 12:57 | W.PN.NEPH.PH ---
Today's Communication / Plan
-
- biopsy today
Assessment/Plan
-
IMP:
Symptomatic Hypercalcemia
Hypomagnesemia
AUGIE on CKD 3
mild microalbuminuria
DM 2
HTN
Hypothyroidism
Plan:
A/w hypercalcemia 15.3 and AUGIE cr 1.5
AUGIE prerenal , better with IVF , cr at baseline now 1.2
Calcium down to 10.9
UA with mild pyuria, follow bladder scan
hypercalcemia-non PTH dependant so no primary hyperparathyroidism
vit D 25 normal, normal TSH. kappa: lambda ratio elevated at 6.5, PTHrP slightly eelvated at 3.[address] scan with concern for lymphoma, planning for biopsy with heme/onc today
Can hold off further IV fluid
s/p Pamidronate on 11/03
BP high, on amlodipine and losartan.
hold all vit D and adrienne supplements
d/w pt and nursing
d/w primary
-
-
Date of Service: November 11, 2023
CC / HPI / ROS
-
Chief Complaint:
AUGIE, hyperclacemia
History of Present Illness:
cr stable 1.2, subjectively non oliguric
Calcium at 10.9
BP are high
Review of Systems:
no cp or sob
feels well
no edema
Labs
-
Labs:
WBC 4.9 10^3/uL (4.8-10.8) 11/09/23 06:06
RBC 3.86 10^6/uL (4.20-5.40) L 11/09/23 06:06
Hgb 11.2 g/dL (12.0-16.0) L 11/09/23 06:06
Hct 32.9 % (37.0-47.0) L 11/09/23 06:06
Plt Count 177 10^3/uL (130-400) 11/09/23 06:06
Sodium 138 mmol/L (135-145) 11/10/23 07:03
Potassium 3.9 mmol/L (3.5-5.1) 11/10/23 07:03
Chloride 109 mmol/L (98-107) H 11/10/23 07:03
Carbon Dioxide 19 mmol/L (22-30) L 11/10/23 07:03
BUN 22 mg/dl (7-17) H 11/10/23 07:03
Creatinine 1.2 mg/dL (0.6-1.0) H 11/10/23 07:03
eGFR 45.48 11/10/23 07:03
Glucose 116 mg/dl (70-99) H 11/10/23 07:03
Calcium 10.9 mg/dl (8.4-10.2) H 11/10/23 07:03
Phosphorus 3.3 mg/dl (2.5-4.5) 11/04/23 17:19
Albumin 3.9 g/dl (3.5-5.0) 11/04/23 17:19
Physical Exam
-
Vital Signs:
Vital Signs
Temp Pulse Resp BP Pulse Ox
97.5 F 92 20 116/73 95
11/11/23 07:05 11/11/23 08:38 11/11/23 07:05 11/11/23 08:38 11/11/23 10:43
Cardiovascular:: Regular rate and rhythm
Respiratory:: Bilateral: Coarse
Lung Excursion:: Normal
Abdomen:: Nontender and Soft
Bowel Sounds:: Normal
Extremity Edema:: +1: Bilateral:
Puckett Catheter: No
--- NOTE | 2023-11-11 13:40 | CM ---
Maureen Uribe is having a biopsy done today in IR.
Case discussed with Mariana at [facility]; bed is available for admission tomorrow.
TT sent to Dr. Diaz to make him aware of discharge delay.
[2023-11-11] MEDS: ULTRAM 50 MG PO (17:45)
[2023-11-11 17:47] LABS: Glucose - Point of Care 94 mg/dl (70-99)
--- NOTE | 2023-11-11 17:55 | PTCARENOTE ---
pt back from IR s/p biopsy. pt is AAO*3, Vss, room air. c/o pain states whole body. PRN Tramadol given at this time. family at the bedside updated. call woody within the reach. will continue plan of care.
[2023-11-11] MEDS: LIDOCAINE 4% PATCH 1 PATCH TOPICAL (20:15)
[2023-11-11] MEDS: BenGay-Like TOPICAL (20:15)
[2023-11-11] MEDS: HEPARIN 5000 UNITS SC (20:15)
[2023-11-11 20:55] LABS: Glucose - Point of Care 107 mg/dl (70-99)
[2023-11-12] MEDS: ULTRAM 50 MG PO (00:47)
[2023-11-12 03:48] VITALS: BP 130/60
--- NOTE | 2023-11-12 05:28 | DOWNTIME ---
There was a [employer] Order Filler Downtime on 11/12/2023 from 0100 to 11/12/2023 at 0337. Downtime documentation of patient's care, including medication administrations, has been reconciled in the electronic record per guidelines. Refer to the
patient's paper chart under the miscellaneous tab to see printed paper medication records and downtime forms.
[2023-11-12] MEDS: SYNTHROID 176 MCG PO (06:01)
[2023-11-12 07:05] VITALS: BP 138/60
--- NOTE | 2023-11-12 08:16 | W.PN.ONC2 ---
Today's Communication / Plan
-
Awaiting path.
D/C to [facility] with close outpt F/U and outpt Tx.
Might not have path results for days.
Impression
Impression
Hypercalcemia likely associated with malignancy improved but slightly increased today
So far no evidence of MGUS on labs done this admission - SPEP and UPEP are negative. Urine FLC's were done on random urine.
Large mass measuring 8.8 x 6.6 x 1.7 cm encasing the abdominal aorta and left renal artery suspicious for malignancy. Also with splenic mass and adrenal mass vs. extension of r/p mass.
Elevated uric acid
Diabetes mellitus
Hypertension
Hypothyroid
Renal insufficiency
Plan
Plan
S/P biopsy Friday 11/10. Awaiting Path
Elevated uric acid noted, start allopurinol 100 mg daily
Pamidronate again 11/10 with Ca creeping up again
Plans for D/C to [facility] today noted.
Subjective/Objective
Chief Complaint
ACS Heme Onc
Subjective
Weak. No complaints. Denies night sweats. S/P Bx 4pm yesterday 11/10.
Vital Signs:
Vital Signs
Temp Pulse Resp BP Pulse Ox
97.5 F 78 14 130/60 93
11/12/23 03:48 11/12/23 03:48 11/12/23 03:48 11/12/23 03:48 11/12/23 03:48
Lab Results:
Laboratory Data
WBC 4.9 10^3/uL (4.8-10.8) 11/09/23 06:06
Hgb 11.2 g/dL (12.0-16.0) L 11/09/23 06:06
Plt Count 177 10^3/uL (130-400) 11/09/23 06:06
PT 13.5 Sec (11.4-14.6) 11/11/23 06:01
INR 1.05 11/11/23 06:01
eGFR 45.48 11/10/23 07:03
Physical Exam
HEENT: No Jaundice
Cardiology: S1 and S2
Pulmonary: Clear
GI: Soft
Extremities: Edema (1-2+)
[2023-11-12 08:18] LABS: Glucose - Point of Care 97 mg/dl (70-99)
[2023-11-12] MEDS: NOVOLOG FLEXPEN-LOW RESISTANCE SC ×3 (08:22→17:19)
[2023-11-12] MEDS: HEPARIN 5000 UNITS SC ×2 (08:39→19:24)
[2023-11-12] MEDS: BenGay-Like 1 APPLIC TOPICAL ×3 (08:39→22:20)
[2023-11-12] MEDS: NORVASC 5 MG PO (08:40)
[2023-11-12] MEDS: COZAAR 50 MG PO ×2 (08:40→19:23)
[2023-11-12] MEDS: ZYLOPRIM 100 MG PO (08:40)
--- NOTE | 2023-11-12 10:01 | W.PN.HOSP.TC ---
Today's Communication/Plan
-
confirming plan with Oncology; plan was for DC Today but patient under different impression
Assessment / Plan
Assessment / Plan
Impression/Plan:
Symptomatic Hypercalcemia -non PTH dependent
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
- s/p IV Pamidronate x 2
- Improved clinical symptoms with improvement in Ca.
- PTHrP and 1,25 hydroxy Vitamin D elevated, fitting with malignant hypercalcemia
- confirm with Oncology plan as patient thought she was staying here while awaiting path. She became very anxious when I spoke about possible discharge.
CXR Mild opacity in the left base favored to represent atelectasis.
Lumbar spine xray without no acute abnormalities
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
-appreciate Oncology
-s/p biopsy on 11/10; awaiting pathology
Left leg swelling - neg US
#AUGIE on CKD 3
- Improved to baseline
#DM 2 - Blood sugars under goal
#HTN - under goal
#Hypothyroidism
-TSH WNL, cont Synthroid
DC to rehab today after biopsy if no plans for inpatient tx by Onc.
Anticipated Discharge: Within 24 hours
Subjective/Interval History
-
Date of Service: November 12, 2023
patient states she was feeling well but under impression staying here until pathology back
Objective Data
-
Vital Signs:
Vital Signs
Temp Pulse Resp BP Pulse Ox
98.2 F 80 18 138/60 95
11/12/23 07:05 11/12/23 07:05 11/12/23 07:05 11/12/23 07:05 11/12/23 08:00
I&O
11/11/23 11/12/23 11/13/23
06:59 06:59 06:59
Intake Total 1020 / 1020 1050 / 1050
Balance 1020 / 1020 1050 / 1050
Review of Systems
-
History Source: Patient
All other systems: Reviewed and negative
Physical Exam
-
General: No Apparent Distress
HEENT: PERRLA
Respiratory: Clear to Auscultation; Negative Wheezes
Cardiac: Regular Rhythm and S1/S2
GI: Soft and Nontender
Musculoskeletal: No Edema
Skin: Warm and Dry; Negative Rash
Neuro: AO x 3
Psych: Calm
Data Reviewed
-
Diagnostic Radiology: Report Reviewed by me
Labs: Labs Reviewed by me
[2023-11-12 11:46] LABS: Glucose - Point of Care 111 mg/dl (70-99)
--- NOTE | 2023-11-12 12:48 | CM ---
Addendum entered by Yolanda Fabian 11/12/23 13:15:
CM met with Mrs. Spain and her son at bedside regarding [facility] no longer being able to offer a bed to her at discharge due to the cost of chemotherapy. Mrs. Spain was thankful for being advised of this prior to speaking with her Oncologist
which is anticipated to be tomorrow.
CM will continue to follow.
Original Note:
Brief visit with Mrs. Lewis this am regarding discharge to [facility]. She became anxious during the conversation because she was not expecting to be discharged until speaking with her oncologist, as she anticipates starting chemotherapy.
Dr. Darby is not discharging until seen by oncologist for plan of care.
[facility] admissions advised of same; due to plan for chemotherapy, they are no longer able to accept for admission, as the cost of care for chemotherapy would become [facility]'s responsibility to pay.
Will discus with Mrs. Spain when her family is present to help reduce anticipated stress/anxiety related to inability to transfer to [facility].
[2023-11-12 15:05] VITALS: BP 167/68
--- NOTE | 2023-11-12 15:10 | W.PN.NEPH.PH ---
Today's Communication / Plan
-
Follow BMP in a.m. if patient still here
Assessment/Plan
-
IMP:
Symptomatic Hypercalcemia
Hypomagnesemia
AUGIE on CKD 3
mild microalbuminuria
DM 2
HTN
Hypothyroidism
Plan:
A/w hypercalcemia 15.3 and AUGIE cr 1.5
AUGIE prerenal , better with IVF , cr at baseline now 1.2
Calcium back up to 10.9
UA with mild pyuria, follow bladder scan
hypercalcemia-non PTH dependant so no primary hyperparathyroidism
vit D 25 normal, normal TSH. kappa: lambda ratio elevated at 6.5, PTHrP slightly elevated at 3.7
[address] scan with concern for lymphoma, status post biopsy with heme/onc, pathology pending
Can hold off further IV fluid
s/p Pamidronate on 11/03
BP high, on amlodipine and losartan.
hold all vit D and adrienne supplements
d/w pt and nursing
d/w primary
-
-
Date of Service: November 12, 2023
CC / HPI / ROS
-
Chief Complaint:
AUGIE, hyperclacemia
History of Present Illness:
cr stable 1.2, subjectively non oliguric
Calcium at 10.9
BP are high
Review of Systems:
no cp or sob
feels well
no edema
Labs
-
Labs:
WBC 4.9 10^3/uL (4.8-10.8) 11/09/23 06:06
RBC 3.86 10^6/uL (4.20-5.40) L 11/09/23 06:06
Hgb 11.2 g/dL (12.0-16.0) L 11/09/23 06:06
Hct 32.9 % (37.0-47.0) L 11/09/23 06:06
Plt Count 177 10^3/uL (130-400) 11/09/23 06:06
Sodium 138 mmol/L (135-145) 11/10/23 07:03
Potassium 3.9 mmol/L (3.5-5.1) 11/10/23 07:03
Chloride 109 mmol/L (98-107) H 11/10/23 07:03
Carbon Dioxide 19 mmol/L (22-30) L 11/10/23 07:03
BUN 22 mg/dl (7-17) H 11/10/23 07:03
Creatinine 1.2 mg/dL (0.6-1.0) H 11/10/23 07:03
eGFR 45.48 11/10/23 07:03
Glucose 116 mg/dl (70-99) H 11/10/23 07:03
Calcium 10.9 mg/dl (8.4-10.2) H 11/10/23 07:03
Phosphorus 3.3 mg/dl (2.5-4.5) 11/04/23 17:19
Albumin 3.9 g/dl (3.5-5.0) 11/04/23 17:19
Physical Exam
-
Vital Signs:
Vital Signs
Temp Pulse Resp BP Pulse Ox
98.2 F 80 18 138/60 95
11/12/23 07:05 11/12/23 07:05 11/12/23 07:05 11/12/23 07:05 11/12/23 08:00
Cardiovascular:: Regular rate and rhythm
Respiratory:: Bilateral: Coarse
Lung Excursion:: Normal
Abdomen:: Nontender and Soft
Bowel Sounds:: Normal
Extremity Edema:: +1: Bilateral:
Puckett Catheter: No
[2023-11-12 16:50] VITALS: BP 149/72
[2023-11-12 16:57] LABS: Glucose - Point of Care 99 mg/dl (70-99)
[2023-11-12] MEDS: LIDOCAINE 4% PATCH 1 PATCH TOPICAL (19:24)
[2023-11-12 21:16] LABS: Glucose - Point of Care 139 mg/dl (70-99)
[2023-11-12] MEDS: ATIVAN 0.5 MG PO (22:14)
[2023-11-12] MEDS: APRESOLINE 5 MG IV (22:14)
[2023-11-12 23:09] VITALS: BP 152/58
[2023-11-13] MEDS: SYNTHROID 88 MCG PO (04:28)
[2023-11-13 07:15] VITALS: BP 171/77
[2023-11-13 08:05] LABS: Glucose - Point of Care 98 mg/dl (70-99)
[2023-11-13 08:06] LABS: Blood Urea Nitrogen 20 mg/dl (7-17); Calcium 9.6 mg/dl (8.4-10.2); Carbon Dioxide 24 mmol/L (22-30); Chloride 106 mmol/L (98-107); Estimated Creatinine Clearance 33 ml/min; Glucose 94 mg/dl (70-99); Potassium 3.3 mmol/L (3.5-5.1); Sodium 139 mmol/L (135-145); eGFR 50.48
[2023-11-13] MEDS: NOVOLOG FLEXPEN-LOW RESISTANCE SC ×3 (08:48→17:49)
[2023-11-13] MEDS: NORVASC 5 MG PO (08:49)
[2023-11-13] MEDS: COZAAR 50 MG PO (08:49)
[2023-11-13] MEDS: BenGay-Like TOPICAL ×4 (08:49→21:18)
[2023-11-13] MEDS: ZYLOPRIM 100 MG PO (08:49)
[2023-11-13] MEDS: HEPARIN 5000 UNITS SC ×2 (08:50→20:24)
[2023-11-13] MEDS: APRESOLINE 5 MG IV ×2 (09:55→18:08)
--- NOTE | 2023-11-13 10:32 | W.PN.HOSP.TC ---
Addendum entered and electronically signed by Anisha Darby MD 11/13/23 15:35:
discussed case with Dr. Maria, sodium bicarb IVF and allopurinol initiated
Addendum entered and electronically signed by Anisha Darby MD 11/13/23 10:41:
discussed with renal - follow closely but OK to continue losartan for now
Original Note:
Today's Communication/Plan
-
awaiting path
likely initiate chemo here tomorrow
appreciate consultants
Assessment / Plan
Assessment / Plan
Impression/Plan:
Symptomatic Hypercalcemia -non PTH dependent
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
concern for aggressive lymphoma
left retroperitoneal mass concerning for malignancy-lymphoma versus metastatic
- s/p IV Pamidronate x 2
- Improved clinical symptoms with improvement in Ca.
- PTHrP and 1,25 hydroxy Vitamin D elevated, fitting with malignant hypercalcemia
- plan is to obtain pathology today and possibly initiate chemotherapy tomorrow. patient requires transfer to telemetry, possibly IMU with chemo initiation
CXR Mild opacity in the left base favored to represent atelectasis.
Lumbar spine xray without no acute abnormalities
Left leg swelling - neg US
#AUGIE on CKD 3
- Improved to baseline
#DM 2 - Blood sugars under goal
#HTN -
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
#Hypothyroidism
-TSH WNL, cont Synthroid
DVT PPx hep subQ
FULL CODE
Anticipated Discharge: > 48 hours
Subjective/Interval History
-
Date of Service: November 13, 2023
no new complaints
intermittent pains
Objective Data
-
Labs:
Laboratory Results
11/13/23
06:54
Sodium 139
Potassium 3.3 L
Chloride 106
Carbon Dioxide 24
BUN 20 H
Creatinine 1.1 H
Glucose 94
Calcium 9.6
Vital Signs:
Vital Signs
Temp Pulse Resp BP Pulse Ox
98.1 F 94 18 173/81 92
11/13/23 07:15 11/13/23 09:55 11/13/23 07:15 11/13/23 09:55 11/13/23 07:15
I&O
11/12/23 11/13/23 11/14/23
06:59 06:59 06:59
Intake Total 1050 / 1050 1380 / 1380
Balance 1050 / 1050 1380 / 1380
Review of Systems
-
History Source: Patient
All other systems: Reviewed and negative
Physical Exam
-
General: No Apparent Distress
HEENT: PERRLA
Respiratory: Clear to Auscultation; Negative Wheezes
Cardiac: Regular Rhythm and S1/S2
GI: Soft and Nontender
Musculoskeletal: No Edema
Skin: Warm and Dry; Negative Rash
Neuro: AO x 3
Psych: Calm
Data Reviewed
-
Diagnostic Radiology: Report Reviewed by me
Labs: Labs Reviewed by me
--- NOTE | 2023-11-13 11:17 | W.PN.ONC ---
Today's Communication / Plan
-
Given rate of cellular division and appearance pathologically along with LDH and uric acid appropriate for inpatient cytoreduction
CHOP chemotherapy hold Rituxan mini dose
Contacted nephrology alkalinization of the urine
Initiate allopurinol
Rasburicase
Monitor potassium every 2 hours for first 12 hours
Telemetry monitoring appropriate
Diabetes mellitus
Hypertension
Hypothyroid
Renal insufficiency
Reviewed toxicities with patient
Consent
Impression
Impression
Large abdominal mass and splenomegaly excess of 12 cm
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
Plan
Plan
S/P biopsy Friday 11/10. Awaiting Path
Elevated uric acid noted, start allopurinol 100 mg daily
Pamidronate again 11/10 with Ca creeping up again
Plans for D/C to [facility] today noted.
Subjective/Objective
Subjective/Objective
Patient is quite anxious about her diagnosis
Vital Signs:
Vital Signs
Temp Pulse Resp BP Pulse Ox
98.1 F 94 18 173/81 92
11/13/23 07:15 11/13/23 09:55 11/13/23 07:15 11/13/23 09:55 11/13/23 08:00
PE:
General: No Apparent Distress
HEENT: PERRLA
Respiratory: Clear to Auscultation; Negative Wheezes
Cardiac: Regular Rhythm and S1/S2
GI: Soft and Nontender
Musculoskeletal: No Edema
Skin: Warm and Dry; Negative Rash
Neuro: AO x 3
Psych: Calm
Lab Results:
Laboratory Data
WBC 4.9 10^3/uL (4.8-10.8) 11/09/23 06:06
Hgb 11.2 g/dL (12.0-16.0) L 11/09/23 06:06
Plt Count 177 10^3/uL (130-400) 11/09/23 06:06
PT 13.5 Sec (11.4-14.6) 11/11/23 06:01
INR 1.05 11/11/23 06:01
eGFR 50.48 11/13/23 06:54
[2023-11-13] MEDS: KCL 20 MEQ PO (11:18)
[2023-11-13] MEDS: COLACE 100 MG PO (11:18)
[2023-11-13 11:27] VITALS: BP 141/57
[2023-11-13 11:48] LABS: Glucose - Point of Care 128 mg/dl (70-99)
--- NOTE | 2023-11-13 13:49 | W.PN.NEPH.PH ---
Today's Communication / Plan
-
Alkaline IV fluid
Holding losartan
Assessment/Plan
-
IMP:
Symptomatic Hypercalcemia
Hypomagnesemia
AUGIE on CKD 3
mild microalbuminuria
DM 2
HTN
Hypothyroidism
New diagnosis : High-grade non-Hodgkin's lymphoma
Plan:
A/w hypercalcemia 15.3 and AUGIE
AUGIE prerenal , better with IVF , cr at baseline now 1.1
Calcium back up to 9.6
UA with mild pyuria, follow bladder scan
hypercalcemia-non PTH dependant so no primary hyperparathyroidism , related to malignancy
Will administer alkalized IV fluids in anticipation of tumor lysis syndrome which could potentiate hyperkalemia
Frequent electrolyte checks will be obtained following chemotherapy induction
s/p Pamidronate on 11/03
BP high, on amlodipine , hold losartan in anticipation for hyperkalemia following chemotherapy induction with tumor lysis
hold all vit D and adrienne supplements
Rasburicase to be provided for possible tumor lysis syndrome to help prevent acute uric acid nephropathy
Discussed with hematology
-
-
Date of Service: November 13, 2023
CC / HPI / ROS
-
Chief Complaint:
AUGIE, hyperclacemia
History of Present Illness:
cr stable 1.1 subjectively non oliguric
Calcium at 9.6
BP are high
Review of Systems:
no cp or sob
no edema
Labs
-
Labs:
WBC 4.9 10^3/uL (4.8-10.8) 11/09/23 06:06
RBC 3.86 10^6/uL (4.20-5.40) L 11/09/23 06:06
Hgb 11.2 g/dL (12.0-16.0) L 11/09/23 06:06
Hct 32.9 % (37.0-47.0) L 11/09/23 06:06
Plt Count 177 10^3/uL (130-400) 11/09/23 06:06
Sodium 139 mmol/L (135-145) 11/13/23 06:54
Potassium 3.3 mmol/L (3.5-5.1) L 11/13/23 06:54
Chloride 106 mmol/L (98-107) 11/13/23 06:54
Carbon Dioxide 24 mmol/L (22-30) 11/13/23 06:54
BUN 20 mg/dl (7-17) H 11/13/23 06:54
Creatinine 1.1 mg/dL (0.6-1.0) H 11/13/23 06:54
eGFR 50.48 11/13/23 06:54
Glucose 94 mg/dl (70-99) 11/13/23 06:54
Calcium 9.6 mg/dl (8.4-10.2) 11/13/23 06:54
Phosphorus 3.3 mg/dl (2.5-4.5) 11/04/23 17:19
Albumin 3.0 g/dl (3.5-5.0) L 11/13/23 06:54
Physical Exam
-
Vital Signs:
Vital Signs
Temp Pulse Resp BP Pulse Ox
98.1 F 96 18 141/57 93
11/13/23 07:15 11/13/23 11:27 11/13/23 07:15 11/13/23 11:27 11/13/23 11:27
Cardiovascular:: Regular rate and rhythm
Respiratory:: Bilateral: Coarse
Lung Excursion:: Normal
Abdomen:: Nontender and Soft
Bowel Sounds:: Normal
Extremity Edema:: +1: Bilateral:
Puckett Catheter: No
[2023-11-13] MEDS: SODIUM BICARBONATE 1150 MEQ IV (14:35)
[2023-11-13 15:15] VITALS: BP 140/61
--- NOTE | 2023-11-13 16:35 | CM ---
[facility] is to start chemotherapy as an inpatient according to Oncology. Jl [facility] has recanted bed offer due to chemo. Discharge on hold pending start of chemo. CM will follow.
[2023-11-13] MEDS: ZYLOPRIM PO (16:37)
--- NOTE | 2023-11-13 17:15 | PTCARENOTE ---
Pt [facility] for initiation of chemo tomorrow. Transported via bed from [facility]. Assessment complete by this RN, vss, pt oriented to room and call woody is within reach.
[2023-11-13 17:48] LABS: Glucose - Point of Care 105 mg/dl (70-99)
[2023-11-13] MEDS: ELITEK 50 MG IV (18:02)
[2023-11-13] MEDS: LIDOCAINE 4% PATCH 1 PATCH TOPICAL (20:25)
[2023-11-13] MEDS: COLACE PO (20:32)
[2023-11-13] MEDS: ULTRAM 50 MG PO (20:42)
[2023-11-13 21:44] LABS: Glucose - Point of Care 111 mg/dl (70-99)
[2023-11-14 00:55] VITALS: BP 134/60
[2023-11-14] MEDS: SODIUM BICARBONATE 1150 MEQ IV (04:44)
[2023-11-14] MEDS: SYNTHROID 88 MCG PO (05:08)
[2023-11-14 05:36] LABS: Urine Albumin Negative (Neg - Trace); Urine Bilirubin Negative (Negative); Urine Character Clear (Clear); Urine Color Yellow; Urine Glucose Negative (Negative); Urine Ketone 1+ (Negative); Urine Leukocyte Trace (Negative); Urine Nitrite Negative (Negative); Urine Occult Blood Negative (Negative); Urine Urobilinogen 1+ (Neg - 1+); Urine pH 6.5 (5.0-9.0)
[2023-11-14 06:21] LABS: Urine Hyaline Cast 0-2 /LPF (0-2)
[2023-11-14 06:23] LABS: Urine Bacteria Few (Negative)
[2023-11-14 07:01] LABS: % Basophils 0.5 % (0-2); % Eosinophils 0.9 % (0-6); % Immature Granulocytes 0.7 % (0-0.5); % Lymphocytes 22.8 % (20.5-51.1); % Monocytes 14.9 % (1.7-9.3); % Neutrophils 60.2 % (42.2-75.2); Absolute Monocytes 0.6 10^3/uL (0.1-0.6); Absolute Neutrophils 2.6 10^3/uL (1.4-6.5); Hematocrit 29.9 % (37.0-47.0); Hemoglobin 10.2 g/dL (12.0-16.0); Mean Corp Hgb Conc. 34.1 g/dL (33.0-37.0); Mean Corpuscular Hgb 29.1 pg (27.0-31.0); Mean Corpuscular Volume 85.4 fL (81.0-99.0); Nucleated Red Blood Cells % 0 %; Platelet Count 151 10^3/uL (130-400); Red Cell Dist. Width 15.4 % (11.5-14.5); White Blood Cell Count 4.3 10^3/uL (4.8-10.8)
[2023-11-14 07:24] LABS: Blood Urea Nitrogen 18 mg/dl (7-17); Calcium 9.3 mg/dl (8.4-10.2); Carbon Dioxide 29 mmol/L (22-30); Chloride 100 mmol/L (98-107); Estimated Creatinine Clearance 36 ml/min; Glucose 76 mg/dl (70-99); Magnesium 1.4 mg/dl (1.6-2.3); Potassium 3.2 mmol/L (3.5-5.1); Sodium 137 mmol/L (135-145)
--- NOTE | 2023-11-14 07:53 | W.PN.HOSP.TC ---
Today's Communication/Plan
-
Initiating CHOP therapy today
Monitor electrolytes closely with assessments at least every 4 hours
Monitor uric acid
Replete magnesium
Continue telemetry
Assessment / Plan
Assessment / Plan
Impression/Plan:
Symptomatic Hypercalcemia -non PTH dependent
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
concern for aggressive lymphoma
left retroperitoneal mass concerning for malignancy-lymphoma versus metastatic
- s/p IV Pamidronate x 2
- Improved clinical symptoms with improvement in Ca.
- PTHrP and 1,25 hydroxy Vitamin D elevated, fitting with malignant hypercalcemia
- plan is to obtain pathology today and initiate chemotherapy today per oncology CHOP chemotherapy holding Rituxan. patient requires transfer to telemetry,
-Monitor potassium at least every 4 hours after induction of chemotherapy/monitor uric acid/ rasburicase/allopurinol
CXR Mild opacity in the left base favored to represent atelectasis.
Lumbar spine xray without no acute abnormalities
Left leg swelling - neg US
#AUGIE on CKD 3
- Improved to baseline
#DM 2 - Blood sugars under goal
#HTN -
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
#Hypothyroidism
-TSH WNL, cont Synthroid
DVT PPx hep subQ
FULL CODE
Anticipated Discharge: > 48 hours
Subjective/Interval History
-
Date of Service: November 14, 2023
Per day retrievable postcubital chemotherapy with transpires afterwards. No distress
Objective Data
-
Labs:
Laboratory Results
11/14/23 11/14/23 11/14/23
04:52 10:00 14:00
WBC 4.3 L
Hgb 10.2 L
Hct 29.9 L
Plt Count 151
Sodium 137
Potassium 3.2 L Pending Pending
Chloride 100
Carbon Dioxide 29
BUN 18 H
Creatinine 1.0
Glucose 76
Calcium 9.3
11/14/23 11/14/23
18:00 22:00
WBC
Hgb
Hct
Plt Count
Sodium
Potassium Pending Pending
Chloride
Carbon Dioxide
BUN
Creatinine
Glucose
Calcium
Vital Signs:
Vital Signs
Temp Pulse Resp BP Pulse Ox
98.4 F 86 20 134/60 93
11/13/23 23:44 11/13/23 18:08 11/13/23 15:15 11/14/23 00:55 11/13/23 23:44
I&O
11/13/23 11/14/23 11/15/23
06:59 06:59 06:59
Intake Total 1380 / 1380 960 / 960
Balance 1380 / 1380 960 / 960
Review of Systems
-
History Source: Patient
Constitutional: Denies Fever
Respiratory: Reports No Symptoms
Cardiac: Reports No Symptoms
Abdomen/GI: Reports No Symptoms
Physical Exam
-
General: Well Developed
HEENT: Normocephalic
Respiratory: Clear to Auscultation
Cardiac: Regular Rhythm
GI: Nontender
Psych: Calm and Anxious
Data Reviewed
-
Total Time Spent with Patient (in minutes): 45
Labs: Labs Reviewed by me (Magnesium 1.4/calcium 9.3/white count 4.3/hemoglobin 10.2)
[2023-11-14 08:00] VITALS: BP 140/82
[2023-11-14] MEDS: COLACE 100 MG PO (08:03)
[2023-11-14] MEDS: ZYLOPRIM 300 MG PO (08:03)
[2023-11-14] MEDS: HEPARIN 5000 UNITS SC ×2 (08:03→20:46)
[2023-11-14] MEDS: BenGay-Like TOPICAL ×3 (08:03→20:47)
[2023-11-14] MEDS: NORVASC 5 MG PO (08:03)
[2023-11-14 08:13] LABS: Glucose - Point of Care 86 mg/dl (70-99)
[2023-11-14 08:22] LABS: Uric Acid < 0.5 mg/dl (2.5-6.2)
[2023-11-14] MEDS: NOVOLOG FLEXPEN-LOW RESISTANCE SC ×2 (08:22→12:53)
[2023-11-14] MEDS: MAGNESIUM SULFATE 50 IV (08:28)
--- NOTE | 2023-11-14 08:43 | W.PN.ONC2 ---
Today's Communication / Plan
-
MINI CHOP today.
TLS prophylaxis.
Fulfilia to be given tomorrow for prevention of neutropenia.
Needs ECHO. Will order for Friday unless can be done at end of day.
Impression
Impression
Large abdominal mass and splenomegaly excess of 12 cm
High-grade non-Hodgkin's lymphoma confirmatory flow cytometry
Plan
Plan
S/P biopsy Friday 11/10. Path c/w diffuse large cell lymphoma (Dr. Maria spoke with Dr. Alejandro Salas).
Patient with excellent response to rasburicase. Uric acid dropped from 7.8 (initial suspect caused by auto tumor lysis) down to 0.5 following rasburicase.
Continue allopurinol 300 mg daily
Patient with hypercalcemia, Initial Ca = 15.2. Current Ca = 9.3 following pamidronate.
High risk for tumor lysis syndrome. Labs will be monitored closely by nephrology.
Treat with mini CHOP today. Will need growth factor support following treatment to start tomorrow.
Subjective/Objective
Chief Complaint
ACS Heme Onc
Subjective
Plans for chemotherapy today. Patient anxious as expected. Reviewed chemotherapy and she is agreeable. She is formally signed informed consent yesterday with Dr. Maria.
Vital Signs:
Vital Signs
Temp Pulse Resp BP Pulse Ox
98.0 F 92 18 134/60 93
11/14/23 07:30 11/14/23 07:30 11/14/23 07:30 11/14/23 00:55 11/14/23 07:30
Lab Results:
Laboratory Data
WBC 4.3 10^3/uL (4.8-10.8) L 11/14/23 04:52
Hgb 10.2 g/dL (12.0-16.0) L 11/14/23 04:52
Plt Count 151 10^3/uL (130-400) 11/14/23 04:52
PT 13.5 Sec (11.4-14.6) 11/11/23 06:01
INR 1.05 11/11/23 06:01
eGFR 56.60 11/14/23 04:52
Physical Exam
HEENT: No Jaundice
Cardiology: S1 and S2
Pulmonary: Clear
GI: Soft
Extremities: No C/C/E
[2023-11-14] MEDS: DELTASONE 80 MG PO (09:05)
[2023-11-14] MEDS: EMEND 150 MG IV (10:30)
[2023-11-14] MEDS: DECADRON 52.5 MG IV (10:30)
[2023-11-14] MEDS: ALOXI 5 MG IV (10:31)
[2023-11-14 11:19] LABS: Potassium 3.1 mmol/L (3.5-5.1)
[2023-11-14] MEDS: ADRIAMYCIN 21 MG IV (11:22)
[2023-11-14] MEDS: ONCOVIN 51 MG IV (11:48)
[2023-11-14] MEDS: CYCLOPHOSPHAMIDE 253.400000000000006 MG IV (12:14)
[2023-11-14 12:20] LABS: Glucose - Point of Care 131 mg/dl (70-99)
--- NOTE | 2023-11-14 13:54 | PTCARENOTE ---
Chemo Note
L PICC line placed 11/12, CXR confirmation of placement 11/12, positive blood return this AM
Morning labs drawn BMP,CMP
uric acid 0.5
mag 1.4, 2g Mag rider given prior to chemo tx
Pt placed on tele #12 running NSR. HR 80 PR0.18 QRS0.08 QT0.32
ECHO order to be complete after chemo tx today
Spoke with Dr. Ceballos this AM after he met with pt, consent signed 11/12 in chart
pt given morning meds, see MAR
7 AM Accu Check 86, pt ate 50% breakfast
Pt sister had extensive conversation with nurse outreach case manager Susie this AM
blood pressures taken with automatic machine on L FA throughout chem administration
Pre Meds
-Prednisone 80mg PO given at 900
-Aloxi 0.25mg IV given at 1030
-Decadron 10mg IV given at 1030
Emend 150mg IV given at 1030
Chemo
Son at bedside. both pt and son educated on each medication given and side effects to report.
-Doxorubicin 42mg IV
1130 pre vitals 167/71 HR91 93%RA R16 TEMP 97.8 PICC positive blood return NSR
PICC blood return check q5cc doxorubicin given, positive return for all checks
1138 post vitals 172/76 HR85 92%RA R17 TEMP 97.9 PICC positive blood return NSR
Wire Tinner spoke with pt and pt's son at bedside
-Vincristine 1mg IV
1153 pre vitals 174/84 HR98 92%RA R17 TEMP 97.9 PICC positive blood return NSR
1204 post vitals 166/77 HR92 92%RA R16 TEMP 98.3 PICC positive blood return NSR
1218 Accu Check 131
-Cyclophosphamide 680mg IV
1232 pre vitals 165/75 HR90 92%RA R16 TEMP 98.3 PICC positive blood return NSR
1246 162/77 HR90 TEMP 97.9, pt reported feeling cold and tired
1333 post vitals 160/79 HR95 95%RA R18 TEMP 97.5 PICC positive blood return NSR
--- NOTE | 2023-11-14 13:58 | CM ---
Received notification from [facility] [employer] that patient's sister wanted to talk regarding discharge plan. Met with patient's sister who stated that patient wants to go home with her. She stated that she would not be able to care for patient as she
is very deconditioned and just started the chemo. Patient's sister was hopeful that patient could transition to a SNF then go home. She was advised that no SNF will take a patient while they are actively in chemo and therefore other options should
be discussed.
Patient's sister was agreeable to taking patient to her house, with VN through , will ask for referral. Offer was made to provide resources for private duty nurses, aides and home companions. She was made aware that this will be a private pay
expense. Patient's sister asked that resources be e
mailed to her at, [email or web address]. Patient's sister relayed that her number is in the chart, but she wrote it down just in case, [place], .
Patient's sister stated that she will call resources once provided however until she has caregivers arranged, patient will not be safe going home or to her house. Explanation was provided that when patient is medically stable, she will need to be
discharged so therefore there are time constraints. Patient's sister confirmed that she will call agencies. 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 Will call facilities/send
referrals local to [facility] but advised patient's sister that it would be extremely unlikely that due to the cost that they would assume care of anyone actively in chemotherapy. She expressed understanding.
Plan: Case management will continue to follow and assist with discharge planning. Will call local facilities to verify their policy regarding acceptance of Chemo patients. Will send resources to email provided by patient's sister. Patient's sister
verbalized that she is anxious as she has to have a plan in place prior to patient returning home due to safety concerns. Expressed understanding.
Plan: Case management will continue to follow and assist with discharge planning. Home with sister and caregivers including VN, s SNF if any facility is able to accommodate which (is unlikely). Will send resources to patient's sister.
[2023-11-14 14:20] VITALS: BP 152/60
--- NOTE | 2023-11-14 14:43 | W.PN.NEPH.PH ---
Today's Communication / Plan
-
- MINI CHOP given
- trend lytes
Assessment/Plan
-
IMP:
Symptomatic Hypercalcemia
Hypomagnesemia
AUGIE on CKD 3
mild microalbuminuria
DM 2
HTN
Hypothyroidism
New diagnosis : High-grade non-Hodgkin's lymphoma
Plan:
A/w hypercalcemia 15.3 and AUGIE
hypercalcemia-non PTH dependant so no primary hyperparathyroidism, related to malignancy
AUGIE prerenal , better with IVF , cr at baseline now 1.0
Ca 9.3, uric acid <0.5, K 3.3 prior to RCHOP
UA with mild pyuria, follow bladder scan
MINI CHOP today with TLS ppx in place
Fulfilia given tomorrow for prevention of neutropenia
C/w Sodium bicarb gtt in anticipation of TLS. Also given rasburicase on 11/12. G6PD check?
Frequent electrolyte checks will be obtained following chemotherapy induction
s/p Pamidronate on 11/03
BP high, on amlodipine, hold losartan in anticipation for hyperkalemia following chemotherapy induction with tumor lysis
hold all vit D and adrienne supplements
Discussed with patient and nursing
-
-
Date of Service: November 14, 2023
CC / HPI / ROS
-
Chief Complaint:
AUGIE, hyperclacemia
History of Present Illness:
cr stable 1.0 subjectively non oliguric
Calcium at 9.3
BP are high
Review of Systems:
no cp or sob
no edema
Labs
-
Labs:
WBC 4.3 10^3/uL (4.8-10.8) L 11/14/23 04:52
RBC 3.50 10^6/uL (4.20-5.40) L 11/14/23 04:52
Hgb 10.2 g/dL (12.0-16.0) L 11/14/23 04:52
Hct 29.9 % (37.0-47.0) L 11/14/23 04:52
Plt Count 151 10^3/uL (130-400) 11/14/23 04:52
Sodium 137 mmol/L (135-145) 11/14/23 04:52
Chloride 100 mmol/L (98-107) 11/14/23 04:52
Carbon Dioxide 29 mmol/L (22-30) 11/14/23 04:52
BUN 18 mg/dl (7-17) H 11/14/23 04:52
Creatinine 1.0 mg/dL (0.6-1.0) 11/14/23 04:52
eGFR 56.60 11/14/23 04:52
Glucose 76 mg/dl (70-99) 11/14/23 04:52
Calcium 9.3 mg/dl (8.4-10.2) 11/14/23 04:52
Phosphorus 3.3 mg/dl (2.5-4.5) 11/04/23 17:19
Albumin 3.0 g/dl (3.5-5.0) L 11/13/23 06:54
Physical Exam
-
Vital Signs:
Vital Signs
Temp Pulse Resp BP Pulse Ox
97.5 F 97 17 152/60 95
11/14/23 14:20 11/14/23 14:20 11/14/23 14:20 11/14/23 14:20 11/14/23 14:20
Cardiovascular:: Regular rate and rhythm
Respiratory:: Bilateral: Coarse
Lung Excursion:: Normal
Abdomen:: Nontender and Soft
Bowel Sounds:: Normal
Extremity Edema:: None: Bilateral:
Puckett Catheter: No
[2023-11-14 16:23] LABS: Potassium 3.1 mmol/L (3.5-5.1)
[2023-11-14 16:44] LABS: Glucose - Point of Care 203 mg/dl (70-99)
[2023-11-14] MEDS: NOVOLOG FLEXPEN-LOW RESISTANCE 2 UNITS SC (18:10)
[2023-11-14 20:09] LABS: Potassium 3.4 mmol/L (3.5-5.1)
[2023-11-14] MEDS: COLACE PO (20:46)
[2023-11-14] MEDS: LIDOCAINE 4% PATCH 1 PATCH TOPICAL (20:47)
[2023-11-14 21:18] LABS: Glucose - Point of Care 229 mg/dl (70-99)
[2023-11-14 23:37] VITALS: BP 138/66
[2023-11-15 00:36] LABS: Potassium 3.2 mmol/L (3.5-5.1)
[2023-11-15 03:05] VITALS: BP 150/66
[2023-11-15 04:42] LABS: Potassium 3.4 mmol/L (3.5-5.1)
[2023-11-15] MEDS: SYNTHROID 88 MCG PO (06:06)
[2023-11-15 07:06] LABS: Blood Urea Nitrogen 23 mg/dl (7-17); Calcium 9.4 mg/dl (8.4-10.2); Carbon Dioxide 28 mmol/L (22-30); Chloride 100 mmol/L (98-107); Estimated Creatinine Clearance 36 ml/min; Glucose 144 mg/dl (70-99); Magnesium 1.8 mg/dl (1.6-2.3); Potassium 3.4 mmol/L (3.5-5.1); Sodium 138 mmol/L (135-145); Uric Acid 0.5 mg/dl (2.5-6.2)
[2023-11-15] MEDS: COLACE 100 MG PO (07:18)
[2023-11-15 09:00] LABS: Glucose - Point of Care 167 mg/dl (70-99)
[2023-11-15] MEDS: DELTASONE 80 MG PO (09:03)
[2023-11-15] MEDS: ZYLOPRIM 300 MG PO (09:04)
[2023-11-15] MEDS: NORVASC 5 MG PO (09:04)
[2023-11-15] MEDS: HEPARIN 5000 UNITS SC ×2 (09:04→20:50)
[2023-11-15] MEDS: BenGay-Like TOPICAL ×3 (09:05→20:50)
[2023-11-15] MEDS: NOVOLOG FLEXPEN-LOW RESISTANCE 1 UNITS SC ×2 (09:05→21:07)
[2023-11-15 12:34] LABS: Glucose - Point of Care 291 mg/dl (70-99)
[2023-11-15] MEDS: NOVOLOG FLEXPEN-LOW RESISTANCE 3 UNITS SC (12:43)
[2023-11-15 13:39] VITALS: BP 142/64
--- NOTE | 2023-11-15 13:49 | W.PN.HOSP.TC ---
Today's Communication/Plan
-
await onc input
apprec all other consultants
Assessment / Plan
Assessment / Plan
pt is an 83 year old female
Symptomatic Hypercalcemia -non PTH dependent due to malignant hypercalcemia with concern for aggressive lymphoma--left retroperitoneal mass biopsied with high grade diffuse large B cell lymphoma - s/p IV Pamidronate x 2 - Improved clinical
symptoms with improvement in Ca- PTHrP and 1,25 hydroxy Vitamin D elevated, fitting with malignant hypercalcemia--chemotherapy per oncology CHOP chemotherapy holding Rituxan--Monitor potassium at least every 4 hours after induction of
chemotherapy/monitor uric acid/ rasburicase/allopurinol because of possible tumor lysis
Left leg swelling - neg US
AUGIE on CKD 3 - Improved to baseline
DM 2 - Blood sugars under goal
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
Hypothyroidism--TSH WNL, cont Synthroid
DVT PPx hep subQ
FULL CODE
Anticipated Discharge: > 48 hours
Subjective/Interval History
-
Date of Service: November 15, 2023
pt and family sitting talking with Dr. Ellington
Objective Data
-
Labs:
Laboratory Results
11/15/23 11/15/23
04:23 06:21
Sodium 138
Potassium 3.4 L 3.4 L
Chloride 100
Carbon Dioxide 28
BUN 23 H
Creatinine 1.0
Glucose 144 H
Calcium 9.4
Vital Signs:
max temp for 24 hours
11/14/23
07:30
Temp 98.0 F
Vital Signs
Temp Pulse Resp BP Pulse Ox
97.8 F 79 18 142/64 98
11/15/23 11:00 11/15/23 03:05 11/15/23 03:05 11/15/23 13:39 11/15/23 11:00
I&O
11/14/23 11/15/23 11/16/23
06:59 06:59 06:59
Intake Total 960 / 960 240 / 240
Balance 960 / 960 240 / 240
Review of Systems
-
All other systems: Reviewed and negative
Physical Exam
-
General: Well Developed, Well Nourished and No Apparent Distress
HEENT: Normocephalic and Atraumatic
Respiratory: Clear to Auscultation; Negative Wheezes or Rhonchi
Cardiac: Regular Rhythm and S1/S2; Negative Murmur
GI: Soft, Nontender, Nondistended and Normal Bowel Sounds
Musculoskeletal: No Clubbing, No Cyanosis and No Edema
Neuro: Awake and Alert
--- NOTE | 2023-11-15 14:19 | W.PN.NEPH.PH ---
Today's Communication / Plan
-
- follow lytes
Assessment/Plan
-
IMP:
Symptomatic Hypercalcemia
Hypomagnesemia
AUGIE on CKD 3
mild microalbuminuria
DM 2
HTN
Hypothyroidism
New diagnosis : High-grade non-Hodgkin's lymphoma
Plan:
A/w hypercalcemia 15.3 and AUGIE
hypercalcemia-non PTH dependant so no primary hyperparathyroidism, related to malignancy
AUGIE prerenal , better with IVF , cr at baseline now 1.0
Ca 9.3, uric acid <0.5, K 3.3 prior to RCHOP
UA with mild pyuria, follow bladder scan
MINI CHOP 11/[address]
Fulfilia given today for prevention of neutropenia
s/p sodium bicarb and rasburicase. G6PD check?
Frequent electrolyte checks will be obtained following chemotherapy induction
s/p Pamidronate on 11/03
BP high, on amlodipine, hold losartan in anticipation for hyperkalemia following chemotherapy induction with tumor lysis
hold all vit D and adrienne supplements
Discussed with patient and nursing
-
-
Date of Service: November 15, 2023
CC / HPI / ROS
-
Chief Complaint:
AUGIE, hyperclacemia
History of Present Illness:
cr stable 1.0 subjectively non oliguric
Calcium at 9.4
BP are high
Review of Systems:
no cp or sob
no edema
Labs
-
Labs:
WBC 4.3 10^3/uL (4.8-10.8) L 11/14/23 04:52
RBC 3.50 10^6/uL (4.20-5.40) L 11/14/23 04:52
Hgb 10.2 g/dL (12.0-16.0) L 11/14/23 04:52
Hct 29.9 % (37.0-47.0) L 11/14/23 04:52
Plt Count 151 10^3/uL (130-400) 11/14/23 04:52
Sodium 138 mmol/L (135-145) 11/15/23 06:21
Potassium 3.4 mmol/L (3.5-5.1) L 11/15/23 06:21
Chloride 100 mmol/L (98-107) 11/15/23 06:21
Carbon Dioxide 28 mmol/L (22-30) 11/15/23 06:21
BUN 23 mg/dl (7-17) H 11/15/23 06:21
Creatinine 1.0 mg/dL (0.6-1.0) 11/15/23 06:21
eGFR 56.60 11/15/23 06:21
Glucose 144 mg/dl (70-99) H 11/15/23 06:21
Calcium 9.4 mg/dl (8.4-10.2) 11/15/23 06:21
Phosphorus 3.3 mg/dl (2.5-4.5) 11/04/23 17:19
Albumin 3.0 g/dl (3.5-5.0) L 11/13/23 06:54
Physical Exam
-
Vital Signs:
Vital Signs
Temp Pulse Resp BP Pulse Ox
97.8 F 79 18 142/64 98
11/15/23 11:00 11/15/23 03:05 11/15/23 03:05 11/15/23 13:39 11/15/23 11:00
Cardiovascular:: Regular rate and rhythm
Respiratory:: Bilateral: CTA
Lung Excursion:: Normal
Abdomen:: Nontender and Soft
Bowel Sounds:: Normal
Extremity Edema:: None: Bilateral:
Puckett Catheter: No
[2023-11-15 15:00] VITALS: BP 171/81
[2023-11-15] MEDS: FULPHILA 6 MG SC (16:46)
[2023-11-15 17:10] VITALS: BP 140/80
--- NOTE | 2023-11-15 18:34 | PTCARENOTE ---
pt refused Accucheck. This nurse explained implication and importance of checking BS. Pt became agitated and difficult and continued to refuse. Will continue to monitor
[2023-11-15 19:00] VITALS: BP 163/69
[2023-11-15] MEDS: COLACE PO (20:49)
[2023-11-15] MEDS: LIDOCAINE 4% PATCH TOPICAL (20:50)
[2023-11-15 21:11] LABS: Glucose - Point of Care 187 mg/dl (70-99)
--- NOTE | 2023-11-15 22:06 | W.PN.ONC2 ---
Today's Communication / Plan
-
daily CBC/CMP/Phosphorus/ mag/LDH to monitor for TLS-- discussed transfer to rehab setting to improve PS prior to next treatment-- setup dateith IR for port prior to cycle 2-- reviewed treatment plan in the [facility] system with pt and sister
regarding dates-- they were happy to see a 'plan of action'
Impression
Impression
DLBCL cmyc pending-- stage 2A ( w/o marrow)
Plan
Plan
S/P biopsy Friday 11/10. Path c/w diffuse large cell lymphoma (Dr. Maria spoke with Dr. Alejandro Salas).
Patient with excellent response to rasburicase. Uric acid dropped from 7.8 (initial suspect caused by auto tumor lysis) down to 0.5 following rasburicase.
Continue allopurinol 300 mg daily
Patient with hypercalcemia, Initial Ca = 15.2. Current Ca = 9.3 following pamidronate.
High risk for tumor lysis syndrome. Labs will be monitored closely by nephrology.
mini CHOP C1D1 11/14/2023-- Will need growth factor support following treatment to start tomorrow.
Subjective/Objective
Chief Complaint
interviewed with sister and son-- anxious there is no clear plan for therapy moving forward
Subjective
weak; essentially nonambulatory since admission
Vital Signs:
Vital Signs
Temp Pulse Resp BP Pulse Ox
97.7 F 94 12 163/69 96
11/15/23 19:00 11/15/23 19:00 11/15/23 19:00 11/15/23 19:00 11/15/23 19:00
Lab Results:
Laboratory Data
WBC 4.3 10^3/uL (4.8-10.8) L 11/14/23 04:52
Hgb 10.2 g/dL (12.0-16.0) L 11/14/23 04:52
Plt Count 151 10^3/uL (130-400) 11/14/23 04:52
PT 13.5 Sec (11.4-14.6) 11/11/23 06:01
INR 1.05 11/11/23 06:01
eGFR 56.60 11/15/23 06:21
Physical Exam
unchanged
Review of Systems
Review of Systems
MINDA
Orders
Orders
Orders From Last 24 Hours
11/16/23 06:00
CBC/With Diff [Complete Blood Count/With Diff] IN AM
CMP [Comprehensive Metabolic Panel] IN AM
LDH IN AM
Phosphorus IN AM
11/17/23 06:00
CBC/With Diff [Complete Blood Count/With Diff] IN AM
CMP [Comprehensive Metabolic Panel] IN AM
LDH IN AM
Phosphorus IN AM
11/18/23 06:00
CBC/With Diff [Complete Blood Count/With Diff] IN AM
CMP [Comprehensive Metabolic Panel] IN AM
LDH IN AM
Phosphorus IN AM
11/19/23 06:00
CBC/With Diff [Complete Blood Count/With Diff] IN AM
CMP [Comprehensive Metabolic Panel] IN AM
LDH IN AM
11/20/23 06:00
CBC/With Diff [Complete Blood Count/With Diff] IN AM
CMP [Comprehensive Metabolic Panel] IN AM
LDH IN AM
11/21/23 06:00
CBC/With Diff [Complete Blood Count/With Diff] IN AM
CMP [Comprehensive Metabolic Panel] IN AM
LDH IN AM
[2023-11-15 23:30] VITALS: BP 150/70
[2023-11-16] VITALS (8 sets, daily range): BP systolic 151–187; BP diastolic 65–88
[2023-11-16 05:37] LABS: % Basophils 0.2 % (0-2); % Immature Granulocytes 3.6 % (0-0.5); % Lymphocytes 3.2 % (20.5-51.1); Absolute Immature Granulocytes 0.8 10^3/uL (0-0.05); Absolute Lymphocytes 0.7 10^3/uL (1.2-3.4); Absolute Monocytes 1.4 10^3/uL (0.1-0.6); Absolute Neutrophils 19.9 10^3/uL (1.4-6.5); Hematocrit 30.6 % (37.0-47.0); Hemoglobin 10.5 g/dL (12.0-16.0); Mean Corp Hgb Conc. 34.3 g/dL (33.0-37.0); Mean Corpuscular Hgb 29.2 pg (27.0-31.0); Mean Corpuscular Volume 85.2 fL (81.0-99.0); Mean Platelet Volume 9.9 fL (7.4-10.4); Nucleated Red Blood Cells % 0 %; Platelet Count 179 10^3/uL (130-400); Red Blood Cell Count 3.59 10^6/uL (4.20-5.40); White Blood Cell Count 22.9 10^3/uL (4.8-10.8)
[2023-11-16 05:50] LABS: ALT (SGPT) 15 U/L (0-35); AST (SGOT) 21 U/L (14-36); Albumin 3.2 g/dl (3.5-5.0); Alkaline Phosphatase 72 U/L (38-126); Blood Urea Nitrogen 36 mg/dl (7-17); Calcium 9.6 mg/dl (8.4-10.2); Carbon Dioxide 30 mmol/L (22-30); Chloride 100 mmol/L (98-107); Estimated Creatinine Clearance 30 ml/min; Glucose 146 mg/dl (70-99); LDH 213 U/L (120-246); Phosphorus 4.3 mg/dl (2.5-4.5); Potassium 3.2 mmol/L (3.5-5.1); Sodium 139 mmol/L (135-145); Total Bilirubin 0.6 mg/dl (0.2-1.3); Total Protein 5.5 g/dl (6.3-8.2); Uric Acid 0.8 mg/dl (2.5-6.2); eGFR 45.48
[2023-11-16] MEDS: SYNTHROID 88 MCG PO (06:24)
[2023-11-16 08:11] LABS: Glucose - Point of Care 140 mg/dl (70-99)
[2023-11-16] MEDS: DELTASONE 80 MG PO (08:30)
[2023-11-16] MEDS: HEPARIN 5000 UNITS SC ×2 (08:30→19:54)
[2023-11-16] MEDS: COLACE 100 MG PO (08:30)
[2023-11-16] MEDS: BenGay-Like 1 APPLIC TOPICAL (08:30)
[2023-11-16] MEDS: NORVASC 5 MG PO (08:30)
[2023-11-16] MEDS: ZYLOPRIM 300 MG PO (08:30)
[2023-11-16] MEDS: NOVOLOG FLEXPEN-LOW RESISTANCE SC ×3 (08:31→18:39)
[2023-11-16] MEDS: APRESOLINE 5 MG IV (08:31)
--- NOTE | 2023-11-16 09:02 | W.PN.HOSP.TC ---
Today's Communication/Plan
-
follow labs
Assessment / Plan
Assessment / Plan
pt is an 83 year old female
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
with improvement in Ca- PTHrP and 1,25 hydroxy Vitamin D elevated, fitting with malignant hypercalcemia--chemotherapy per oncology CHOP chemotherapy holding Rituxan, plan for 3-5 more days in hospital per pt--Monitor potassium at least every 4
hours after induction of chemotherapy/monitor uric acid/ rasburicase/allopurinol because of possible tumor lysis
Left leg swelling - neg US
AUGIE on CKD 3 - Improved to baseline
DM 2 - Blood sugars under goal
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
Hypothyroidism--TSH WNL, cont Synthroid
DVT PPx hep subQ
FULL CODE
PT recommending Home Health so may be moot point re: rehab.....
Anticipated Discharge: > 48 hours
Subjective/Interval History
-
Date of Service: November 16, 2023
pt upset that can't get chemo at rehab
Objective Data
-
Labs:
Laboratory Results
11/16/23
05:16
WBC 22.9 H
Hgb 10.5 L
Hct 30.6 L
Plt Count 179
Sodium 139
Potassium 3.2 L
Chloride 100
Carbon Dioxide 30
BUN 36 H
Creatinine 1.2 H
Glucose 146 H
Calcium 9.6
Total Bilirubin 0.6
AST 21
ALT 15
Alkaline Phosphatase 72
Vital Signs:
max temp for 24 hours
11/15/23
23:00
Temp 98.2 F
Vital Signs
Temp Pulse Resp BP Pulse Ox
97.8 F 86 16 187/76 95
11/16/23 07:00 11/16/23 07:00 11/16/23 07:00 11/16/23 07:00 11/16/23 07:00
I&O
11/15/23 11/16/23 11/17/23
06:59 06:59 06:59
Intake Total 240 / 240 720 / 720
Balance 240 / 240 720 / 720
Review of Systems
-
All other systems: Reviewed and negative
Physical Exam
-
General: Well Developed, Well Nourished and No Apparent Distress
HEENT: Normocephalic and Atraumatic
Respiratory: Clear to Auscultation; Negative Wheezes or Rhonchi
Cardiac: Regular Rhythm and S1/S2; Negative Murmur
GI: Soft, Nontender, Nondistended and Normal Bowel Sounds
Musculoskeletal: No Clubbing and No Cyanosis; Negative No Edema (1+ LE edema bilaterally)
Neuro: Awake and Alert
--- NOTE | 2023-11-16 10:38 | PTCARENOTE ---
Bs hypoactive tender distended, no nausea no vomiting. pt complains of constipation pt refused colace. PT BP 187/71 hydralazine given BP 176/76 PT very anxious about best friend fight. I educated pt on importance of managing BP to promote healing.
She stated a doctor stated her Bp is supposed to be high after chemo. Emotional support given
--- NOTE | 2023-11-16 12:06 | W.PN.NEPH.PH ---
Today's Communication / Plan
-
- slightly low K today, will give 20meQ K supplementation
Assessment/Plan
-
IMP:
Symptomatic Hypercalcemia
Hypomagnesemia
AUGIE on CKD 3
mild microalbuminuria
DM 2
HTN
Hypothyroidism
New diagnosis : High-grade non-Hodgkin's lymphoma
Plan:
A/w hypercalcemia 15.3 and AGUIE
hypercalcemia-non PTH dependant so no primary hyperparathyroidism, related to malignancy
AUGIE prerenal , better with IVF , cr at baseline now 1.0
Ca 9.3, uric acid <0.5, K 3.3 prior to RCHOP
UA with mild pyuria, follow bladder scan
MINI CHOP 11/13 with [address] in [address]
Fulfilia given today for prevention of neutropenia
s/p sodium bicarb and rasburicase. G6PD check?
Frequent electrolyte checks will be obtained following chemotherapy induction
s/p Pamidronate on 11/03
BP high, on amlodipine, hold losartan in anticipation for hyperkalemia following chemotherapy induction with tumor lysis
hold all vit D and adrienne supplements
Discussed with patient and nursing
-
-
Date of Service: November 16, 2023
CC / HPI / ROS
-
Chief Complaint:
AUGIE, hyperclacemia
History of Present Illness:
cr stable 1.0 subjectively non oliguric
Calcium at 9.4
BP are high
Review of Systems:
no cp or sob
no edema
Labs
-
Labs:
WBC 22.9 10^3/uL (4.8-10.8) H 11/16/23 05:16
RBC 3.59 10^6/uL (4.20-5.40) L 11/16/23 05:16
Hgb 10.5 g/dL (12.0-16.0) L 11/16/23 05:16
Hct 30.6 % (37.0-47.0) L 11/16/23 05:16
Plt Count 179 10^3/uL (130-400) 11/16/23 05:16
Sodium 139 mmol/L (135-145) 11/16/23 05:16
Potassium 3.2 mmol/L (3.5-5.1) L 11/16/23 05:16
Chloride 100 mmol/L (98-107) 11/16/23 05:16
Carbon Dioxide 30 mmol/L (22-30) 11/16/23 05:16
BUN 36 mg/dl (7-17) H 11/16/23 05:16
Creatinine 1.2 mg/dL (0.6-1.0) H 11/16/23 05:16
eGFR 45.48 11/16/23 05:16
Glucose 146 mg/dl (70-99) H 11/16/23 05:16
Calcium 9.6 mg/dl (8.4-10.2) 11/16/23 05:16
Phosphorus 4.3 mg/dl (2.5-4.5) 11/16/23 05:16
Albumin 3.2 g/dl (3.5-5.0) L 11/16/23 05:16
Physical Exam
-
Vital Signs:
Vital Signs
Temp Pulse Resp BP Pulse Ox
97.8 F 86 16 176/76 95
11/16/23 07:00 11/16/23 07:00 11/16/23 07:00 11/16/23 10:30 11/16/23 07:00
Cardiovascular:: Regular rate and rhythm
Respiratory:: Bilateral: CTA
Lung Excursion:: Normal
Abdomen:: Nontender and Soft
Bowel Sounds:: Normal
Extremity Edema:: None: Bilateral:
Puckett Catheter: No
[2023-11-16] MEDS: KCL 20 MEQ PO (13:33)
[2023-11-16 14:29] LABS: Glucose - Point of Care 238 mg/dl (70-99)
[2023-11-16 16:24] LABS: Glucose - Point of Care 211 mg/dl (70-99)
[2023-11-16] MEDS: BenGay-Like TOPICAL ×2 (16:34→22:35)
[2023-11-16] MEDS: COLACE LIQUID 50 MG PO (19:50)
[2023-11-16] MEDS: LIDOCAINE 4% PATCH 1 PATCH TOPICAL (19:55)
[2023-11-16] MEDS: TYLENOL 650 MG PO (19:56)
[2023-11-16] MEDS: ULTRAM 50 MG PO (22:35)
--- NOTE | 2023-11-16 22:38 | W.PN.ONC ---
Today's Communication / Plan
-
understands need for rehab to improve PS-- quite anxious about the whole process and overwhelmed with family's help
Impression
Impression
DLBCL cmyc pending-- stage 2A ( w/o marrow)
Plan
Plan
S/P biopsy Friday 11/10. Path c/w diffuse large cell lymphoma (Dr. Maria spoke with Dr. Alejandro Salas).
Patient with excellent response to rasburicase. Uric acid dropped from 7.8 (initial suspect caused by auto tumor lysis) down to 0.5 following rasburicase.
Continue allopurinol 300 mg daily
Patient with hypercalcemia, Initial Ca = 15.2. Current Ca = 9.3 following pamidronate.
High risk for tumor lysis syndrome. Labs will be monitored closely by nephrology.
mini CHOP C1D1 11/14/2023-- LA growth factor support following treatment administered
Subjective/Objective
Subjective/Objective
anxious about next steps
Vital Signs:
Vital Signs
Temp Pulse Resp BP Pulse Ox
97.5 F 94 16 154/68 94
11/16/23 19:00 11/16/23 21:00 11/16/23 19:00 11/16/23 21:00 11/16/23 19:00
Lab Results:
Laboratory Data
WBC 22.9 10^3/uL (4.8-10.8) H 11/16/23 05:16
Hgb 10.5 g/dL (12.0-16.0) L 11/16/23 05:16
Plt Count 179 10^3/uL (130-400) 11/16/23 05:16
PT 13.5 Sec (11.4-14.6) 11/11/23 06:01
INR 1.05 11/11/23 06:01
eGFR 45.48 11/16/23 05:16
Orders
Orders
Orders From Last 24 Hours
11/16/23 05:16
CBC/With Diff [Complete Blood Count/With Diff] IN AM
CMP [Comprehensive Metabolic Panel] IN AM
LDH IN AM
Phosphorus IN AM
11/17/23 06:00
CBC/With Diff [Complete Blood Count/With Diff] IN AM
CMP [Comprehensive Metabolic Panel] IN AM
LDH IN AM
Phosphorus IN AM
11/18/23 06:00
CBC/With Diff [Complete Blood Count/With Diff] IN AM
CMP [Comprehensive Metabolic Panel] IN AM
LDH IN AM
Phosphorus IN AM
11/19/23 06:00
CBC/With Diff [Complete Blood Count/With Diff] IN AM
CMP [Comprehensive Metabolic Panel] IN AM
LDH IN AM
11/20/23 06:00
CBC/With Diff [Complete Blood Count/With Diff] IN AM
CMP [Comprehensive Metabolic Panel] IN AM
LDH IN AM
11/21/23 06:00
CBC/With Diff [Complete Blood Count/With Diff] IN AM
CMP [Comprehensive Metabolic Panel] IN AM
LDH IN AM
[2023-11-16 22:59] LABS: Glucose - Point of Care 190 mg/dl (70-99)
[2023-11-17] VITALS (7 sets, daily range): BP systolic 130–184; BP diastolic 66–123
[2023-11-17] MEDS: SYNTHROID 88 MCG PO (04:59)
[2023-11-17 05:13] LABS: Hematocrit 29.9 % (37.0-47.0); Hemoglobin 10.4 g/dL (12.0-16.0); Mean Corp Hgb Conc. 34.8 g/dL (33.0-37.0); Mean Corpuscular Hgb 29.7 pg (27.0-31.0); Mean Corpuscular Volume 85.4 fL (81.0-99.0); Platelet Count 166 10^3/uL (130-400); Red Cell Dist. Width 15.2 % (11.5-14.5)
[2023-11-17 05:27] LABS: ALT (SGPT) 14 U/L (0-35); AST (SGOT) 18 U/L (14-36); Albumin 3.1 g/dl (3.5-5.0); Alkaline Phosphatase 75 U/L (38-126); Blood Urea Nitrogen 38 mg/dl (7-17); Calcium 9.2 mg/dl (8.4-10.2); Carbon Dioxide 31 mmol/L (22-30); Chloride 100 mmol/L (98-107); Estimated Creatinine Clearance 33 ml/min; Glucose 125 mg/dl (70-99); LDH 215 U/L (120-246); Phosphorus 3.6 mg/dl (2.5-4.5); Potassium 3.4 mmol/L (3.5-5.1); Sodium 138 mmol/L (135-145); Total Bilirubin 0.6 mg/dl (0.2-1.3); Total Protein 5.2 g/dl (6.3-8.2); Uric Acid 1.2 mg/dl (2.5-6.2); eGFR 50.48
[2023-11-17 07:00] LABS: Absolute Neutrophils -Man Diff 24.4 10^3/uL (1.4-6.5); Band Neutrophils 6 % (0-3); Lymphocytes 4 % (20-51); Monocytes 2 % (2-9); Platelets Checked Yes; Segmented Neutrophils 88 % (42-75)
[2023-11-17 07:01] LABS: Normal RBC Morphology Yes; Total Cells Counted 100
[2023-11-17 07:44] LABS: Glucose - Point of Care 113 mg/dl (70-99)
[2023-11-17] MEDS: NOVOLOG FLEXPEN-LOW RESISTANCE SC (08:02)
[2023-11-17] MEDS: BenGay-Like TOPICAL ×3 (08:11→21:06)
[2023-11-17] MEDS: DELTASONE 80 MG PO (08:11)
[2023-11-17] MEDS: COLACE LIQUID PO (08:11)
[2023-11-17] MEDS: HEPARIN 5000 UNITS SC ×2 (08:12→20:58)
[2023-11-17] MEDS: DESENEX/MITRAZOL/ZEASORB 1 APPLIC TOPICAL ×2 (08:12→21:00)
[2023-11-17] MEDS: ZYLOPRIM 300 MG PO (08:12)
[2023-11-17] MEDS: NORVASC 5 MG PO (08:12)
--- NOTE | 2023-11-17 11:00 | CM ---
Addendum entered by RADHA Craig 11/17/23 15:50:
Spoke with Mariana from [facility] who confirmed that she does not have a bed for patient. Placed a call to Nguyễn and relayed that [facility] is the only facility that can provide bed. She stated to talk to patient and son, Agus, who was at
bedside.
Met with patient and her son. Advised patient that the only facility who can accept is [facility]. She stated that she would transfer there.
Spoke with admissions at [facility] who confirmed that they have a bed for patient tomorrow, after 12. #for report [phone] and # for fax [phone]
Addendum entered by RADHA Craig 11/17/23 14:08:
Received acceptance from Maura in admissions at [facility]. Other requested facilities declined. Will confirm with admissions that bed is available and then review with patient's sister.
Original Note:
Received call from patient's sister, Nguyễn, who stated that she spoke with Oncology over the weekend, and was advised that patient's next treatment can be held off until the 11 of December. As this is the case, Patient's sister would still like for
patient to go to rehab first for short term prior to returning home with her.
She stated that she spoke with patient who agreed upon referrals being sent to: [facility], [facility], [facility] and [facility].
Will make referrals. Will call [facility] again too to determine if they can now accept patient due to the option to delay treatment.
Plan: Case management will continue to follow and assist with discharge planning. SNF when medically cleared.
[2023-11-17 11:24] LABS: Glucose - Point of Care 171 mg/dl (70-99)
[2023-11-17] MEDS: APRESOLINE 5 MG IV ×2 (11:27→17:48)
[2023-11-17] MEDS: NOVOLOG FLEXPEN-LOW RESISTANCE 1 UNITS SC (11:29)
[2023-11-17] MEDS: MIRALAX 8.5 GRAMS PO (12:04)
--- NOTE | 2023-11-17 13:22 | W.PN.NEPH.PH ---
Today's Communication / Plan
-
follow BMP
Assessment/Plan
-
IMP:
Symptomatic Hypercalcemia
Hypomagnesemia
AUGIE on CKD 3
mild microalbuminuria
DM 2
HTN
Hypothyroidism
New diagnosis : High-grade non-Hodgkin's lymphoma
Plan:
restart losartan 50mg daily
follow BMP
dc planning
replete K
-
-
Date of Service: November 17, 2023
CC / HPI / ROS
-
Chief Complaint:
AUGIE, hyperclacemia
History of Present Illness:
cr stable 1.1
Calcium normal
BP are high
K low 3.4
Review of Systems:
no cp or sob
edema stable
Labs
-
Labs:
WBC 26.0 10^3/uL (4.8-10.8) H 11/17/23 04:54
RBC 3.50 10^6/uL (4.20-5.40) L 11/17/23 04:54
Hgb 10.4 g/dL (12.0-16.0) L 11/17/23 04:54
Hct 29.9 % (37.0-47.0) L 11/17/23 04:54
Plt Count 166 10^3/uL (130-400) 11/17/23 04:54
Sodium 138 mmol/L (135-145) 11/17/23 04:54
Potassium 3.4 mmol/L (3.5-5.1) L 11/17/23 04:54
Chloride 100 mmol/L (98-107) 11/17/23 04:54
Carbon Dioxide 31 mmol/L (22-30) H 11/17/23 04:54
BUN 38 mg/dl (7-17) H 11/17/23 04:54
Creatinine 1.1 mg/dL (0.6-1.0) H 11/17/23 04:54
eGFR 50.48 11/17/23 04:54
Glucose 125 mg/dl (70-99) H 11/17/23 04:54
Calcium 9.2 mg/dl (8.4-10.2) 11/17/23 04:54
Phosphorus 3.6 mg/dl (2.5-4.5) 11/17/23 04:54
Albumin 3.1 g/dl (3.5-5.0) L 11/17/23 04:54
Physical Exam
-
Vital Signs:
Vital Signs
Temp Pulse Resp BP Pulse Ox
97.6 F 97 17 163/75 96
11/17/23 11:15 11/17/23 11:27 11/17/23 11:15 11/17/23 11:27 11/17/23 11:15
Cardiovascular:: Regular rate and rhythm
Respiratory:: Bilateral: Coarse
Lung Excursion:: Normal
Abdomen:: Nontender and Soft
Bowel Sounds:: Normal
Extremity Edema:: +3: Bilateral:
--- NOTE | 2023-11-17 14:43 | W.PN.HOSP.TC ---
Today's Communication/Plan
-
DC planning
Assessment / Plan
Assessment / Plan
pt is an 83 year old female
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
with improvement in Ca- PTHrP and 1,25 hydroxy Vitamin D elevated, fitting with malignant hypercalcemia--chemotherapy per oncology -Monitor lytes with chemo. Improved Ca and uric acid . S/P rabicurase.
Leukocytosis -suspect sec to steroids
Hypokalemia -replete
AUGIE on CKD 3 - Improved to baseline
DM 2 - Blood sugars under goal
Essential HTN -- back on ARB
Hypothyroidism--TSH WNL, cont Synthroid
DVT PPx hep subQ
FULL CODE
DC when ok from Onc standpoint
Anticipated Discharge: Within 24 hours
Subjective/Interval History
-
Date of Service: November 17, 2023
Feels ok
Objective Data
-
Labs:
Laboratory Results
11/17/23
04:54
WBC 26.0 H
Hgb 10.4 L
Hct 29.9 L
Plt Count 166
Sodium 138
Potassium 3.4 L
Chloride 100
Carbon Dioxide 31 H
BUN 38 H
Creatinine 1.1 H
Glucose 125 H
Calcium 9.2
Total Bilirubin 0.6
AST 18
ALT 14
Alkaline Phosphatase 75
Vital Signs:
Vital Signs
Temp Pulse Resp BP Pulse Ox
97.6 F 97 17 163/75 96
11/17/23 11:15 11/17/23 11:27 11/17/23 11:15 11/17/23 11:27 11/17/23 11:15
I&O
11/16/23 11/17/23 11/18/23
06:59 06:59 06:59
Intake Total 720 / 720 1140 / 1140
Balance 720 / 720 1140 / 1140
Review of Systems
-
Respiratory: Denies Trouble Breathing
Cardiac: Denies Chest Pain
Abdomen/GI: Denies Abdominal Pain, Nausea or Vomiting
Neuro: Denies Dizzy
Physical Exam
-
General: No Apparent Distress
HEENT: Moist Mucous Membranes
Respiratory: Non Labored Respirations; Negative Accessory Resp Muscle Use
Cardiac: Regular Rhythm and S1/S2
Neuro: AO x 3
Psych: Calm; Negative Confused
Data Reviewed
-
Labs: Labs Reviewed by me
[2023-11-17] MEDS: KCL 40 MEQ PO (15:11)
[2023-11-17 16:31] LABS: Glucose - Point of Care 219 mg/dl (70-99)
[2023-11-17] MEDS: ATIVAN 0.5 MG PO ×2 (17:43→22:15)
[2023-11-17] MEDS: NOVOLOG FLEXPEN-LOW RESISTANCE 2 UNITS SC (17:44)
[2023-11-17] MEDS: LIDOCAINE 4% PATCH 1 PATCH TOPICAL (20:57)
[2023-11-17] MEDS: COLACE 100 MG PO (20:58)
--- NOTE | 2023-11-17 21:38 | W.PN.ONC2 ---
Today's Communication / Plan
-
Okay for d/c to Rehab from Heme/Onc standpoint.
Okay to delay next cycle of chemotherapy one week, until 12/11, to allow rehab. She will tolerate treatment better with optimized performance status.
Prednisone 80 mg daily through 11/17.
F/U with us will be scheduled at time of d/c.
Impression
Impression
DLBCL cmyc pending-- stage 2A ( w/o marrow)
Plan
Plan
Continue allopurinol 300 mg daily
Patient with hypercalcemia, Initial Ca = 15.2. Current Ca = 9.3 following pamidronate.
Mini CHOP C1D1 11/14/2023-- LA growth factor support following treatment administered
Plan next cycle mini-CHOP in 4 weeks, following d/c from rehab
Subjective/Objective
Chief Complaint
Non-Hodgkin lymphoma complicated by hypercalcemia, spontaneous tumor lysis
Subjective
Doing well, denies complaint other than weakness.
Vital Signs:
Vital Signs
Temp Pulse Resp BP Pulse Ox
98.3 F 107 19 157/66 97
11/17/23 19:00 11/17/23 19:00 11/17/23 19:00 11/17/23 19:00 11/17/23 19:00
Lab Results:
Laboratory Data
WBC 26.0 10^3/uL (4.8-10.8) H 11/17/23 04:54
Hgb 10.4 g/dL (12.0-16.0) L 11/17/23 04:54
Plt Count 166 10^3/uL (130-400) 11/17/23 04:54
PT 13.5 Sec (11.4-14.6) 11/11/23 06:01
INR 1.05 11/11/23 06:01
eGFR 50.48 11/17/23 04:54
Physical Exam
Awake, alert, non-toxic appearing
[2023-11-17 21:55] LABS: Glucose - Point of Care 203 mg/dl (70-99)
[2023-11-18 03:15] VITALS: BP 158/65
[2023-11-18] MEDS: SYNTHROID 88 MCG PO (06:24)
[2023-11-18 07:41] LABS: Hemoglobin 10.8 g/dL (12.0-16.0); Mean Corp Hgb Conc. 33.8 g/dL (33.0-37.0); Mean Corpuscular Hgb 29.2 pg (27.0-31.0); Mean Corpuscular Volume 86.5 fL (81.0-99.0); Mean Platelet Volume 10.3 fL (7.4-10.4); Platelet Count 139 10^3/uL (130-400); Red Cell Dist. Width 14.9 % (11.5-14.5); White Blood Cell Count 21.3 10^3/uL (4.8-10.8)
[2023-11-18 07:53] VITALS: BP 178/80
[2023-11-18 08:02] LABS: Glucose - Point of Care 116 mg/dl (70-99)
[2023-11-18] MEDS: NOVOLOG FLEXPEN-LOW RESISTANCE SC (08:09)
[2023-11-18] MEDS: DELTASONE 80 MG PO (08:10)
[2023-11-18] MEDS: NORVASC 5 MG PO (08:12)
[2023-11-18] MEDS: COLACE 100 MG PO (08:13)
[2023-11-18] MEDS: HEPARIN 5000 UNITS SC (08:13)
[2023-11-18] MEDS: COZAAR 50 MG PO (08:13)
[2023-11-18] MEDS: ZYLOPRIM 300 MG PO (08:13)
[2023-11-18 08:17] LABS: ALT (SGPT) 15 U/L (0-35); AST (SGOT) 20 U/L (14-36); Albumin 3.2 g/dl (3.5-5.0); Alkaline Phosphatase 91 U/L (38-126); Blood Urea Nitrogen 41 mg/dl (7-17); Calcium 9.4 mg/dl (8.4-10.2); Carbon Dioxide 32 mmol/L (22-30); Chloride 100 mmol/L (98-107); Estimated Creatinine Clearance 33 ml/min; Glucose 110 mg/dl (70-99); LDH 267 U/L (120-246); Magnesium 1.8 mg/dl (1.6-2.3); Phosphorus 2.9 mg/dl (2.5-4.5); Potassium 3.6 mmol/L (3.5-5.1); Sodium 138 mmol/L (135-145); Total Bilirubin 0.7 mg/dl (0.2-1.3); Total Protein 5.3 g/dl (6.3-8.2); Uric Acid 1.6 mg/dl (2.5-6.2); eGFR 50.48
[2023-11-18] MEDS: DESENEX/MITRAZOL/ZEASORB 1 APPLIC TOPICAL (08:19)
[2023-11-18] MEDS: BenGay-Like TOPICAL ×2 (08:23→16:32)
[2023-11-18 09:10] LABS: Absolute Neutrophils -Man Diff 19.8 10^3/uL (1.4-6.5); Band Neutrophils 5 % (0-3); Lymphocytes 4 % (20-51); Monocytes 3 % (2-9); Normal RBC Morphology Yes; Platelets Checked Yes; Segmented Neutrophils 88 % (42-75); Total Cells Counted 100
[2023-11-18 10:54] VITALS: BP 135/81
[2023-11-18 11:43] LABS: Glucose - Point of Care 220 mg/dl (70-99)
--- NOTE | 2023-11-18 11:56 | W.PN.ONC ---
Today's Communication / Plan
-
d/c planning to rehab
will arrange outpatient onc office visit in ~2 weeks to assess performance status and plan next treatment ([facility] #2)
continue allopurinol 300 mg daily
rec weekly CBC and CMP, mag, phos while in rehab
Impression
Impression
DLBCL cmyc pending-- stage 2A ( w/o marrow)
Plan
Plan
d/c planning to rehab
will arrange outpatient onc office visit in ~2 weeks to assess performance status and plan next treatment ([facility] #2)
continue allopurinol 300 mg daily
rec weekly CBC and CMP, mag, phos while in rehab, monitor daily while inpatient
Subjective/Objective
Subjective/Objective
'I feel depleted.'
Struggled to walk across room with PT
Vital Signs:
Vital Signs
Temp Pulse Resp BP Pulse Ox
98.4 F 94 16 135/81 95
11/18/23 10:54 11/18/23 10:54 11/18/23 10:54 11/18/23 10:54 11/18/23 10:54
Lab Results:
Laboratory Data
WBC 21.3 10^3/uL (4.8-10.8) H 11/18/23 07:24
Hgb 10.8 g/dL (12.0-16.0) L 11/18/23 07:24
Plt Count 139 10^3/uL (130-400) 11/18/23 07:24
PT 13.5 Sec (11.4-14.6) 11/11/23 06:01
INR 1.05 11/11/23 06:01
eGFR 50.48 11/18/23 07:24
--- NOTE | 2023-11-18 12:10 | W.PN.HOSP.TC ---
Today's Communication/Plan
-
DC
Assessment / Plan
Assessment / Plan
pt is an 83 year old female
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
with improvement in Ca- PTHrP and 1,25 hydroxy Vitamin D elevated, fitting with malignant hypercalcemia--chemotherapy per oncology -next one 12/11. Improved Ca and uric acid . S/P rabicurase.
Leukocytosis -suspect sec to steroids which are done today.afebrile.
AUGIE on CKD 3 - Improved to baseline
DM 2 - Blood sugars higher suspect sec to steroids. Should improve with being off of steroids now.
Essential HTN -- back on ARB
Hypothyroidism--TSH WNL, cont Synthroid
DVT PPx hep subQ
FULL CODE
medically stable for discharge. Follow-up with oncology as an outpatient.
Disposition to rehab today.
Total time of discharge 35 minutes
Anticipated Discharge: Today
Subjective/Interval History
-
Date of Service: November 18, 2023
Feels generally weak otherwise voices no specific complaints.
Objective Data
-
Labs:
Laboratory Results
11/18/23
07:24
WBC 21.3 H
Hgb 10.8 L
Hct 32.0 L
Plt Count 139
Sodium 138
Potassium 3.6
Chloride 100
Carbon Dioxide 32 H
BUN 41 H
Creatinine 1.1 H
Glucose 110 H
Calcium 9.4
Total Bilirubin 0.7
AST 20
ALT 15
Alkaline Phosphatase 91
Vital Signs:
Vital Signs
Temp Pulse Resp BP Pulse Ox
98.4 F 94 16 135/81 95
11/18/23 10:54 11/18/23 10:54 11/18/23 10:54 11/18/23 10:54 11/18/23 10:54
I&O
11/17/23 11/18/23 11/19/23
06:59 06:59 06:59
Intake Total 1140 / 1140 620 / 620
Balance 1140 / 1140 620 / 620
Review of Systems
-
Constitutional: Denies Fever
Respiratory: Denies Cough or Trouble Breathing
Cardiac: Denies Chest Pain
Abdomen/GI: Denies Abdominal Pain, Nausea, Vomiting or Diarrhea
Neuro: Denies Dizzy
Physical Exam
-
General: No Apparent Distress
HEENT: Moist Mucous Membranes
Respiratory: Non Labored Respirations; Negative Accessory Resp Muscle Use
Cardiac: Regular Rhythm and S1/S2; Negative Tachycardic
GI: Soft, Nontender, Nondistended and Normal Bowel Sounds
Neuro: AO x 3
Data Reviewed
-
Labs: Labs Reviewed by me
--- NOTE | 2023-11-18 12:19 | W.DS.TRANS ---
DC Summary - Digital Developer
-
Discharge Instructions:
Discharge Diagnosis/Procedures New diagnosis of B Cell lymphoma s/p induction
chemo in hospital; malignant hypercalcemia
Diet Regular
Activity As tolerated
Driving Restrictions Not until seen by your Dr
Bathing Restrictions None
Blood Work BMP and CBC in one week
Other Services PT,OT
Instructions:
Stand-Alone Forms:
Changes to Home Medications: Yes
Discharge Medications:
DC Medications w/original date entered in [employer]
cholecalciferol (vitamin D3) 50 mcg (2,000 unit) tablet 50 mcg PO DAILY Supplement 11/04/23
docusate sodium 100 mg capsule (Stool Softener) 100 mg PO DAILY PRN constipation 11/04/23
dulaglutide 1.5 mg/0.5 mL subcutaneous pen injector (Trulicity) 1.5 mg SC QWEEK diabetes 11/04/23
levothyroxine 88 mcg tablet (Synthroid) 88 mcg PO SUMOTUTHFRSA@0800 Thyroid 11/04/23
levothyroxine 88 mcg tablet (Synthroid) 176 mcg PO WE@0800 Thyroid 11/04/23
metformin 500 mg tablet,extended release 24 hr 500 mg PO BID diabetes 11/04/23
red yeast rice 40 mg PO BID Supplement 11/04/23
vitamin B complex 1 tab PO DAILY Supplement 11/04/23
lorazepam 0.5 mg tablet 0.5 mg PO HS PRN anxiety 11/10/23
allopurinol 300 mg tablet 300 mg PO DAILY #1 tab 11/18/23
amlodipine 5 mg tablet 5 mg PO DAILY #1 tab 11/18/23
losartan 50 mg tablet 50 mg PO DAILY Blood Pressure #0 tabs 11/18/23
polyethylene glycol 3350 17 gram oral powder packet (HealthyLax) 17 g PO DAILYPRN PRN constipation #14 ea 11/18/23
tramadol 37.5 mg-acetaminophen 325 mg tablet 1 tab PO BIDPRN PRN mild pain #12 tabs 11/18/23
Home Medication Changes
New medication-MiraLAX, Norvasc, allopurinol.
Change in medication-losartan dose decreased from twice daily to once a day
Pending Results: No
--- NOTE | 2023-11-18 12:50 | W.PN.NEPH.PH ---
Today's Communication / Plan
-
dc
Assessment/Plan
-
IMP:
Symptomatic Hypercalcemia
Hypomagnesemia
AUGIE on CKD 3
mild microalbuminuria
DM 2
HTN
Hypothyroidism
New diagnosis : High-grade non-Hodgkin's lymphoma
Plan:
continue losartan 50mg daily
follow BMP
dc planning [facility]
-
-
Date of Service: November 18, 2023
CC / HPI / ROS
-
Chief Complaint:
AUGIE, hyperclacemia
History of Present Illness:
cr stable 1.1
Calcium normal
BP better
K normal
Review of Systems:
no cp or sob
edema stable
Labs
-
Labs:
WBC 21.3 10^3/uL (4.8-10.8) H 11/18/23 07:24
RBC 3.70 10^6/uL (4.20-5.40) L 11/18/23 07:24
Hgb 10.8 g/dL (12.0-16.0) L 11/18/23 07:24
Hct 32.0 % (37.0-47.0) L 11/18/23 07:24
Plt Count 139 10^3/uL (130-400) 11/18/23 07:24
Sodium 138 mmol/L (135-145) 11/18/23 07:24
Potassium 3.6 mmol/L (3.5-5.1) 11/18/23 07:24
Chloride 100 mmol/L (98-107) 11/18/23 07:24
Carbon Dioxide 32 mmol/L (22-30) H 11/18/23 07:24
BUN 41 mg/dl (7-17) H 11/18/23 07:24
Creatinine 1.1 mg/dL (0.6-1.0) H 11/18/23 07:24
eGFR 50.48 11/18/23 07:24
Glucose 110 mg/dl (70-99) H 11/18/23 07:24
Calcium 9.4 mg/dl (8.4-10.2) 11/18/23 07:24
Phosphorus 2.9 mg/dl (2.5-4.5) 11/18/23 07:24
Albumin 3.2 g/dl (3.5-5.0) L 11/18/23 07:24
Physical Exam
-
Vital Signs:
Vital Signs
Temp Pulse Resp BP Pulse Ox
98.4 F 94 16 135/81 95
11/18/23 10:54 11/18/23 10:54 11/18/23 10:54 11/18/23 10:54 11/18/23 10:54
Cardiovascular:: Regular rate and rhythm
Respiratory:: Bilateral: CTA
Lung Excursion:: Normal
Abdomen:: Nontender and Soft
Bowel Sounds:: Normal
Extremity Edema:: +1: Bilateral:
[2023-11-18] MEDS: NOVOLOG FLEXPEN-LOW RESISTANCE 2 UNITS SC ×2 (13:10→18:22)
--- NOTE | 2023-11-18 13:42 | CM ---
Spoke with attending who confirmed that patient is medically stable for discharge/transfer to [facility]. Confirmed with Maura in admissions at [facility] that she has the bed. Confirmation obtained. Went to meet with patient however she was
asleep. Called patient's sister, Nguyễn. Reviewed discharge/IMM placed on chart. Transfer sheet and medical necessity placed provided to [facility] community affairs director (RN)
Plan: Case management will continue to follow and assist with discharge planning. Transfer to [facility].
[2023-11-18 15:00] VITALS: BP 134/83
[2023-11-18 16:18] LABS: Glucose - Point of Care 226 mg/dl (70-99)
== END 2023-11-18 18:36 | DRG 840 ==
LOC: 3 WEST ACU 20:03
PROVIDERS: Internal Medicine; Internal Medicine Hematology & Oncology; Radiology Diagnostic Radiology; Radiology Vascular & Interventional Radiology; Registered Nurse; Specialist; Student in an Organized Health Care Education/Training Program; ADMITTING PHYSICIAN Internal Medicine; ATTENDING PHYSICIAN Internal Medicine; CONSULT PHYSICIAN Internal Medicine Hematology & Oncology; EMERGENCY PHYSICIAN Emergency Medicine; FAMILY PHYSICIAN Family Medicine; OTHER PHYSICIAN Internal Medicine
PROC: 0WBH3ZX Excision of Retroperitoneum, Percutaneous Approach, Diagnostic (ICD-10-PCS; 2023-11-11)
PROC: 02HV33Z Insertion of Infusion Device into Superior Vena Cava, Percutaneous Approach (ICD-10-PCS; 2023-11-13)
DX: C83.30 Diffuse large B-cell lymphoma, unspecified site (principal); G93.41 Metabolic encephalopathy; N17.9 Acute kidney failure, unspecified; J98.11 Atelectasis; E83.52 Hypercalcemia; E03.9 Hypothyroidism, unspecified; E11.649 Type 2 diabetes mellitus with hypoglycemia without coma; E11.22 Type 2 diabetes mellitus with diabetic chronic kidney disease; N18.32 Chronic kidney disease, stage 3b; E86.0 Dehydration; I12.9 Hypertensive chronic kidney disease with stage 1 through stage 4 chronic kidney disease, or unspecified chronic kidney disease; K59.00 Constipation, unspecified; R80.9 Proteinuria, unspecified; R16.1 Splenomegaly, not elsewhere classified; D72.829 Elevated white blood cell count, unspecified; E78.5 Hyperlipidemia, unspecified; R63.4 Abnormal weight loss; E87.6 Hypokalemia; E83.42 Hypomagnesemia; Z79.890 Hormone replacement therapy; Z92.3 Personal history of irradiation; Z88.8 Allergy status to other drugs, medicaments and biological substances; Z79.85 Long-term (current) use of injectable non-insulin antidiabetic drugs; Z79.84 Long term (current) use of oral hypoglycemic drugs; Z68.27 Body mass index [BMI] 27.0-27.9, adult; Z85.3 Personal history of malignant neoplasm of breast
CPT/HCPCS: 88305; 36415; 49180; 71045; 71046; 74176; 74177; 77012; 80048; 80053; 81003; 81015; 82040; 82306; 82652; 82962; 83519; 83521; 83615; 83735; 83970; 84100; 84132; 84155; 84156; 84165; 84443; 84550; 85025; 85027; 85610; 86335; 87086; 88333; 88341; 88342; 88365; 93005; 93306; 93356; 93971; 96365; 96366; 97116; 97163; 97530; 99152; 99291; J1453; J2430; J2469; J2783; J9073; Q5108; Q9967

== ENCOUNTER → 2023-12-05 12:18 | Outpatient (REF) | payer MEDICARE, OTHER, SELFPAY ==
[2023-12-05 12:55] VITALS: BP 137/76; BP_SYST 80
[2023-12-05] MEDS: ATIVAN 0.5 MG IV (13:32)
[2023-12-05] MEDS: NSS (PRESERVATIVE FREE) 0.25 ML IV (13:33)
[2023-12-05] MEDS: ANCEF 10 IV (13:39)
[2023-12-05 14:50] VITALS: BP 109/56; BP 115/43; BP_SYST 97; BP_SYST 98
== END ==
LOC: RADI 12:18
PROVIDERS: ATTENDING PHYSICIAN Internal Medicine Hematology & Oncology; FAMILY PHYSICIAN Family Medicine
DX: C83.33 Diffuse large B-cell lymphoma, intra-abdominal lymph nodes (principal)
CPT/HCPCS: 36561; 76937; 77001; 99152; 99153; C1788

== ENCOUNTER → 2023-12-08 15:47 | Outpatient (REF) | payer MEDICARE, OTHER, SELFPAY ==
[2023-12-08 11:49] LABS: % Basophils 1.7 % (0-2); % Eosinophils 0.9 % (0-6); % Immature Granulocytes 2.1 % (0-0.5); % Lymphocytes 22.6 % (20.5-51.1); % Monocytes 9.1 % (1.7-9.3); % Neutrophils 63.6 % (42.2-75.2); Absolute Basophils 0.1 10^3/uL (0-0.2); Absolute Eosinophils 0.1 10^3/uL (0-0.7); Absolute Immature Granulocytes 0.2 10^3/uL (0-0.05); Absolute Lymphocytes 1.6 10^3/uL (1.2-3.4); Absolute Monocytes 0.6 10^3/uL (0.1-0.6); Absolute Neutrophils 4.5 10^3/uL (1.4-6.5); Hematocrit 31.2 % (37.0-47.0); Hemoglobin 10.5 g/dL (12.0-16.0); Mean Corp Hgb Conc. 33.7 g/dL (33.0-37.0); Mean Corpuscular Hgb 29.7 pg (27.0-31.0); Mean Corpuscular Volume 88.1 fL (81.0-99.0); Mean Platelet Volume 9.7 fL (7.4-10.4); Nucleated Red Blood Cells % 0 %; Platelet Count 217 10^3/uL (130-400); Red Blood Cell Count 3.54 10^6/uL (4.20-5.40); Red Cell Dist. Width 15.7 % (11.5-14.5)
[2023-12-08 11:59] LABS: ALT (SGPT) 12 U/L (0-35); AST (SGOT) 19 U/L (14-36); Albumin 3.9 g/dl (3.5-5.0); Alkaline Phosphatase 72 U/L (38-126); Blood Urea Nitrogen 24 mg/dl (7-17); Carbon Dioxide 27 mmol/L (22-30); Chloride 106 mmol/L (98-107); Glucose 109 mg/dl (70-99); Potassium 4.5 mmol/L (3.5-5.1); Sodium 141 mmol/L (135-145); Total Bilirubin 0.4 mg/dl (0.2-1.3); Total Protein 6.1 g/dl (6.3-8.2); Uric Acid 3.9 mg/dl (2.5-6.2); eGFR > 60.00
== END ==
LOC: OIDL 15:47
PROVIDERS: ATTENDING PHYSICIAN Internal Medicine Hematology & Oncology
DX: C50.411 Malignant neoplasm of upper-outer quadrant of right female breast (principal)
CPT/HCPCS: 80053; 84550; 85025

== ENCOUNTER → 2024-01-12 09:03 | Outpatient (REF) | payer MEDICARE, OTHER, SELFPAY ==
[2024-01-12 12:31] LABS: % Basophils 1.1 % (0-2); % Eosinophils 1.5 % (0-6); % Immature Granulocytes 0.8 % (0-0.5); % Lymphocytes 12.4 % (20.5-51.1); % Monocytes 6.9 % (1.7-9.3); % Neutrophils 77.3 % (42.2-75.2); Absolute Basophils 0.1 10^3/uL (0-0.2); Absolute Eosinophils 0.1 10^3/uL (0-0.7); Absolute Immature Granulocytes 0.1 10^3/uL (0-0.05); Absolute Lymphocytes 1.1 10^3/uL (1.2-3.4); Absolute Monocytes 0.6 10^3/uL (0.1-0.6); Absolute Neutrophils 6.8 10^3/uL (1.4-6.5); Hematocrit 33.3 % (37.0-47.0); Mean Corpuscular Hgb 29.8 pg (27.0-31.0); Mean Corpuscular Volume 90.2 fL (81.0-99.0); Mean Platelet Volume 10.4 fL (7.4-10.4); Nucleated Red Blood Cells % 0 %; Platelet Count 225 10^3/uL (130-400); Red Blood Cell Count 3.69 10^6/uL (4.20-5.40); Red Cell Dist. Width 17.1 % (11.5-14.5); White Blood Cell Count 8.8 10^3/uL (4.8-10.8)
[2024-01-12 12:43] LABS: ALT (SGPT) < 10 U/L (0-35); AST (SGOT) 16 U/L (14-36); Albumin 3.8 g/dl (3.5-5.0); Alkaline Phosphatase 78 U/L (38-126); Blood Urea Nitrogen 21 mg/dl (7-17); Calcium 9.5 mg/dl (8.4-10.2); Carbon Dioxide 24 mmol/L (22-30); Chloride 105 mmol/L (98-107); Glucose 114 mg/dl (70-99); Magnesium 1.6 mg/dl (1.6-2.3); Potassium 4.1 mmol/L (3.5-5.1); Sodium 139 mmol/L (135-145); Total Bilirubin 0.5 mg/dl (0.2-1.3); Total Protein 5.9 g/dl (6.3-8.2)
== END ==
LOC: HWLAB 09:03
PROVIDERS: ATTENDING PHYSICIAN Internal Medicine Hematology & Oncology; FAMILY PHYSICIAN Family Medicine
DX: C50.411 Malignant neoplasm of upper-outer quadrant of right female breast (principal); C83.33 Diffuse large B-cell lymphoma, intra-abdominal lymph nodes
CPT/HCPCS: 36415; 80053; 83735; 85025

== ENCOUNTER → 2024-01-30 09:47 | Outpatient (REF) | payer MEDICARE, OTHER, SELFPAY ==
[2024-01-30 12:36] LABS: % Basophils 1.1 % (0-2); % Eosinophils 0.5 % (0-6); % Immature Granulocytes 3.5 % (0-0.5); % Lymphocytes 8.4 % (20.5-51.1); % Monocytes 5.3 % (1.7-9.3); % Neutrophils 81.2 % (42.2-75.2); Absolute Basophils 0.2 10^3/uL (0-0.2); Absolute Eosinophils 0.1 10^3/uL (0-0.7); Absolute Immature Granulocytes 0.6 10^3/uL (0-0.05); Absolute Lymphocytes 1.4 10^3/uL (1.2-3.4); Absolute Monocytes 0.9 10^3/uL (0.1-0.6); Absolute Neutrophils 13.9 10^3/uL (1.4-6.5); Mean Corp Hgb Conc. 32.4 g/dL (33.0-37.0); Mean Corpuscular Hgb 29.6 pg (27.0-31.0); Mean Corpuscular Volume 91.4 fL (81.0-99.0); Mean Platelet Volume 11.6 fL (7.4-10.4); Nucleated Red Blood Cells % 0 %; Platelet Count 175 10^3/uL (130-400); Red Blood Cell Count 3.72 10^6/uL (4.20-5.40); Red Cell Dist. Width 16.6 % (11.5-14.5); White Blood Cell Count 17.1 10^3/uL (4.8-10.8)
[2024-01-30 12:50] LABS: ALT (SGPT) < 10 U/L (0-35); AST (SGOT) 19 U/L (14-36); Albumin 4.1 g/dl (3.5-5.0); Alkaline Phosphatase 130 U/L (38-126); Blood Urea Nitrogen 24 mg/dl (7-17); Calcium 9.3 mg/dl (8.4-10.2); Carbon Dioxide 26 mmol/L (22-30); Chloride 103 mmol/L (98-107); Glucose 111 mg/dl (70-99); Magnesium 1.8 mg/dl (1.6-2.3); Potassium 4.3 mmol/L (3.5-5.1); Sodium 143 mmol/L (135-145); Total Bilirubin 0.4 mg/dl (0.2-1.3); Total Protein 6.2 g/dl (6.3-8.2); eGFR 50.17
== END ==
LOC: HWLAB 09:47
PROVIDERS: ATTENDING PHYSICIAN Internal Medicine Hematology & Oncology; FAMILY PHYSICIAN Family Medicine
DX: C50.411 Malignant neoplasm of upper-outer quadrant of right female breast (principal); C83.33 Diffuse large B-cell lymphoma, intra-abdominal lymph nodes
CPT/HCPCS: 36415; 80053; 83735; 85025

== ENCOUNTER → 2024-02-20 09:21 | Outpatient (REF) | payer MEDICARE, OTHER, SELFPAY ==
[2024-02-20 11:43] LABS: % Basophils 1.1 % (0-2); % Eosinophils 0.6 % (0-6); % Immature Granulocytes 3.3 % (0-0.5); % Lymphocytes 8.9 % (20.5-51.1); % Monocytes 6.7 % (1.7-9.3); % Neutrophils 79.4 % (42.2-75.2); Absolute Basophils 0.2 10^3/uL (0-0.2); Absolute Eosinophils 0.1 10^3/uL (0-0.7); Absolute Immature Granulocytes 0.5 10^3/uL (0-0.05); Absolute Lymphocytes 1.2 10^3/uL (1.2-3.4); Absolute Monocytes 0.9 10^3/uL (0.1-0.6); Absolute Neutrophils 11.1 10^3/uL (1.4-6.5); Hematocrit 35.1 % (37.0-47.0); Hemoglobin 11.3 g/dL (12.0-16.0); Mean Corp Hgb Conc. 32.2 g/dL (33.0-37.0); Mean Corpuscular Hgb 29.4 pg (27.0-31.0); Mean Corpuscular Volume 91.2 fL (81.0-99.0); Mean Platelet Volume 11.3 fL (7.4-10.4); Nucleated Red Blood Cells % 0 %; Platelet Count 179 10^3/uL (130-400); Red Blood Cell Count 3.85 10^6/uL (4.20-5.40); Red Cell Dist. Width 17.2 % (11.5-14.5)
[2024-02-20 12:10] LABS: ALT (SGPT) 13 U/L (0-35); AST (SGOT) 18 U/L (14-36); Albumin 4.2 g/dl (3.5-5.0); Alkaline Phosphatase 128 U/L (38-126); Blood Urea Nitrogen 23 mg/dl (7-17); Calcium 9.4 mg/dl (8.4-10.2); Carbon Dioxide 26 mmol/L (22-30); Chloride 105 mmol/L (98-107); Glucose 123 mg/dl (70-99); Magnesium 1.8 mg/dl (1.6-2.3); Potassium 4.2 mmol/L (3.5-5.1); Sodium 145 mmol/L (135-145); Total Bilirubin 0.4 mg/dl (0.2-1.3); Total Protein 6.4 g/dl (6.3-8.2); eGFR 41.06
== END ==
LOC: HWLAB 09:21
PROVIDERS: ATTENDING PHYSICIAN Internal Medicine Hematology & Oncology; FAMILY PHYSICIAN Family Medicine
DX: C50.411 Malignant neoplasm of upper-outer quadrant of right female breast (principal); C83.33 Diffuse large B-cell lymphoma, intra-abdominal lymph nodes
CPT/HCPCS: 36415; 80053; 83735; 85025

== ENCOUNTER → 2024-02-23 09:14 | Outpatient (REF) | payer MEDICARE, OTHER, SELFPAY ==
[2024-02-23 12:23] LABS: % Basophils 0.9 % (0-2); % Eosinophils 0.6 % (0-6); % Immature Granulocytes 1.1 % (0-0.5); % Lymphocytes 9.8 % (20.5-51.1); % Monocytes 6.1 % (1.7-9.3); % Neutrophils 81.5 % (42.2-75.2); Absolute Basophils 0.1 10^3/uL (0-0.2); Absolute Eosinophils 0.1 10^3/uL (0-0.7); Absolute Immature Granulocytes 0.1 10^3/uL (0-0.05); Absolute Monocytes 0.6 10^3/uL (0.1-0.6); Absolute Neutrophils 8.6 10^3/uL (1.4-6.5); Hematocrit 34.8 % (37.0-47.0); Hemoglobin 11.9 g/dL (12.0-16.0); Mean Corp Hgb Conc. 34.2 g/dL (33.0-37.0); Mean Corpuscular Hgb 31.1 pg (27.0-31.0); Mean Corpuscular Volume 90.9 fL (81.0-99.0); Mean Platelet Volume 11.7 fL (7.4-10.4); Nucleated Red Blood Cells % 0 %; Platelet Count 214 10^3/uL (130-400); Red Blood Cell Count 3.83 10^6/uL (4.20-5.40); Red Cell Dist. Width 17.1 % (11.5-14.5); White Blood Cell Count 10.5 10^3/uL (4.8-10.8)
[2024-02-23 12:31] LABS: ALT (SGPT) 13 U/L (0-35); AST (SGOT) 19 U/L (14-36); Albumin 4.3 g/dl (3.5-5.0); Alkaline Phosphatase 97 U/L (38-126); Blood Urea Nitrogen 22 mg/dl (7-17); Calcium 9.6 mg/dl (8.4-10.2); Carbon Dioxide 29 mmol/L (22-30); Chloride 102 mmol/L (98-107); Glucose 94 mg/dl (70-99); Potassium 4.6 mmol/L (3.5-5.1); Sodium 141 mmol/L (135-145); Total Bilirubin 0.4 mg/dl (0.2-1.3); Total Protein 6.4 g/dl (6.3-8.2); eGFR 50.17
== END ==
LOC: HWLAB 09:14
PROVIDERS: ATTENDING PHYSICIAN Internal Medicine Hematology & Oncology; FAMILY PHYSICIAN Family Medicine
DX: C50.411 Malignant neoplasm of upper-outer quadrant of right female breast (principal); C83.33 Diffuse large B-cell lymphoma, intra-abdominal lymph nodes
CPT/HCPCS: 36415; 80053; 85025

== ENCOUNTER → 2024-02-27 10:01 | Outpatient (REF) | payer MEDICARE, OTHER, SELFPAY ==
[2024-02-27 12:27] LABS: ALT (SGPT) 16 U/L (0-35); AST (SGOT) 21 U/L (14-36); Albumin 4.3 g/dl (3.5-5.0); Alkaline Phosphatase 87 U/L (38-126); Blood Urea Nitrogen 21 mg/dl (7-17); Calcium 9.9 mg/dl (8.4-10.2); Carbon Dioxide 27 mmol/L (22-30); Chloride 101 mmol/L (98-107); Glucose 126 mg/dl (70-99); Magnesium 1.7 mg/dl (1.6-2.3); Potassium 4.4 mmol/L (3.5-5.1); Sodium 142 mmol/L (135-145); Total Bilirubin 0.4 mg/dl (0.2-1.3); Total Protein 6.5 g/dl (6.3-8.2); eGFR 56.25
[2024-02-27 12:36] LABS: % Basophils 0.7 % (0-2); % Eosinophils 0.5 % (0-6); % Immature Granulocytes 0.9 % (0-0.5); % Lymphocytes 11.9 % (20.5-51.1); % Monocytes 8.9 % (1.7-9.3); % Neutrophils 77.1 % (42.2-75.2); Absolute Basophils 0.1 10^3/uL (0-0.2); Absolute Eosinophils 0.1 10^3/uL (0-0.7); Absolute Immature Granulocytes 0.1 10^3/uL (0-0.05); Absolute Lymphocytes 1.2 10^3/uL (1.2-3.4); Absolute Monocytes 0.9 10^3/uL (0.1-0.6); Absolute Neutrophils 7.4 10^3/uL (1.4-6.5); Hematocrit 35.3 % (37.0-47.0); Hemoglobin 11.7 g/dL (12.0-16.0); Mean Corp Hgb Conc. 33.1 g/dL (33.0-37.0); Mean Corpuscular Volume 93.4 fL (81.0-99.0); Nucleated Red Blood Cells % 0 %; Platelet Count 244 10^3/uL (130-400); Red Blood Cell Count 3.78 10^6/uL (4.20-5.40); Red Cell Dist. Width 16.8 % (11.5-14.5); White Blood Cell Count 9.6 10^3/uL (4.8-10.8)
== END ==
LOC: HWLAB 10:01
PROVIDERS: ATTENDING PHYSICIAN Internal Medicine Hematology & Oncology; FAMILY PHYSICIAN Internal Medicine
DX: C50.411 Malignant neoplasm of upper-outer quadrant of right female breast (principal); C83.33 Diffuse large B-cell lymphoma, intra-abdominal lymph nodes
CPT/HCPCS: 36415; 80053; 83735; 85025

== ENCOUNTER → 2024-03-19 09:58 | Outpatient (REF) | payer MEDICARE, OTHER, SELFPAY ==
[2024-03-19 11:32] LABS: % Basophils 0.7 % (0-2); % Eosinophils 0.4 % (0-6); % Immature Granulocytes 1.6 % (0-0.5); % Lymphocytes 6.1 % (20.5-51.1); % Monocytes 5.5 % (1.7-9.3); % Neutrophils 85.7 % (42.2-75.2); Absolute Basophils 0.1 10^3/uL (0-0.2); Absolute Eosinophils 0.1 10^3/uL (0-0.7); Absolute Immature Granulocytes 0.3 10^3/uL (0-0.05); Absolute Lymphocytes 1.2 10^3/uL (1.2-3.4); Absolute Monocytes 1.1 10^3/uL (0.1-0.6); Hematocrit 32.7 % (37.0-47.0); Hemoglobin 10.7 g/dL (12.0-16.0); Mean Corp Hgb Conc. 32.7 g/dL (33.0-37.0); Mean Corpuscular Hgb 29.6 pg (27.0-31.0); Mean Corpuscular Volume 90.6 fL (81.0-99.0); Mean Platelet Volume 10.7 fL (7.4-10.4); Nucleated Red Blood Cells % 0 %; Platelet Count 171 10^3/uL (130-400); Red Blood Cell Count 3.61 10^6/uL (4.20-5.40); Red Cell Dist. Width 15.8 % (11.5-14.5); White Blood Cell Count 19.9 10^3/uL (4.8-10.8)
[2024-03-19 11:44] LABS: ALT (SGPT) 11 U/L (0-35); AST (SGOT) 18 U/L (14-36); Albumin 4.2 g/dl (3.5-5.0); Alkaline Phosphatase 108 U/L (38-126); Blood Urea Nitrogen 24 mg/dl (7-17); Calcium 9.5 mg/dl (8.4-10.2); Carbon Dioxide 27 mmol/L (22-30); Chloride 105 mmol/L (98-107); Glucose 101 mg/dl (70-99); Magnesium 1.8 mg/dl (1.6-2.3); Potassium 4.2 mmol/L (3.5-5.1); Sodium 143 mmol/L (135-145); Total Bilirubin 0.2 mg/dl (0.2-1.3); Total Protein 6.2 g/dl (6.3-8.2); eGFR 56.25
== END ==
LOC: HWLAB 09:58
PROVIDERS: ATTENDING PHYSICIAN Internal Medicine Hematology & Oncology; FAMILY PHYSICIAN Family Medicine
DX: C50.411 Malignant neoplasm of upper-outer quadrant of right female breast (principal); C83.33 Diffuse large B-cell lymphoma, intra-abdominal lymph nodes
CPT/HCPCS: 36415; 80053; 83735; 85025

== ENCOUNTER → 2024-04-20 13:47 | Outpatient (REF) | payer MEDICARE, OTHER, SELFPAY | LOC: RCS 13:47 | PROVIDERS: ATTENDING PHYSICIAN Internal Medicine Hematology & Oncology; FAMILY PHYSICIAN Family Medicine | DX: C50.411 Malignant neoplasm of upper-outer quadrant of right female breast (principal); C83.33 Diffuse large B-cell lymphoma, intra-abdominal lymph nodes | CPT/HCPCS: 93306; 93356 ==

== ENCOUNTER → 2024-04-27 09:14 | Outpatient (REF) | payer MEDICARE, OTHER, SELFPAY ==
[2024-04-27 12:47] LABS: % Basophils 0.8 % (0-2); % Eosinophils 1.1 % (0-6); % Immature Granulocytes 0.3 % (0-0.5); % Lymphocytes 13.1 % (20.5-51.1); % Monocytes 6.2 % (1.7-9.3); % Neutrophils 78.5 % (42.2-75.2); Absolute Basophils 0.1 10^3/uL (0-0.2); Absolute Eosinophils 0.1 10^3/uL (0-0.7); Absolute Lymphocytes 0.8 10^3/uL (1.2-3.4); Absolute Monocytes 0.4 10^3/uL (0.1-0.6); Absolute Neutrophils 4.8 10^3/uL (1.4-6.5); Hematocrit 38.1 % (37.0-47.0); Hemoglobin 11.8 g/dL (12.0-16.0); Mean Corpuscular Hgb 29.5 pg (27.0-31.0); Mean Corpuscular Volume 95.3 fL (81.0-99.0); Mean Platelet Volume 10.9 fL (7.4-10.4); Nucleated Red Blood Cells % 0 %; Platelet Count 205 10^3/uL (130-400); Red Cell Dist. Width 14.6 % (11.5-14.5); White Blood Cell Count 6.2 10^3/uL (4.8-10.8)
[2024-04-27 13:07] LABS: ALT (SGPT) 13 U/L (0-35); AST (SGOT) 20 U/L (14-36); Albumin 4.2 g/dl (3.5-5.0); Alkaline Phosphatase 64 U/L (38-126); Blood Urea Nitrogen 30 mg/dl (7-17); Calcium 9.4 mg/dl (8.4-10.2); Carbon Dioxide 25 mmol/L (22-30); Chloride 106 mmol/L (98-107); Glucose 101 mg/dl (70-99); Magnesium 1.7 mg/dl (1.6-2.3); Potassium 4.6 mmol/L (3.5-5.1); Sodium 142 mmol/L (135-145); Total Bilirubin 0.6 mg/dl (0.2-1.3); Total Protein 6.2 g/dl (6.3-8.2); Uric Acid 5.8 mg/dl (2.5-6.2); eGFR 56.25
[2024-04-27 13:25] LABS: Urine Albumin Negative (Neg - Trace); Urine Bilirubin Negative (Negative); Urine Character Clear (Clear); Urine Color Yellow; Urine Glucose Negative (Negative); Urine Ketone Negative (Negative); Urine Leukocyte Negative (Negative); Urine Nitrite Negative (Negative); Urine Occult Blood Negative (Negative); Urine Specific Gravity 1.025 (<1.030); Urine Urobilinogen Negative (Neg - 1+)
[2024-04-27 13:43] LABS: Glycohemoglobin (HgbA1c) 5.7 % (4.0-5.6)
== END ==
LOC: HWLAB 09:14
PROVIDERS: ATTENDING PHYSICIAN Internal Medicine Hematology & Oncology; FAMILY PHYSICIAN Family Medicine; REFERRING PHYSICIAN Internal Medicine Hematology & Oncology
DX: C50.411 Malignant neoplasm of upper-outer quadrant of right female breast (principal); C83.33 Diffuse large B-cell lymphoma, intra-abdominal lymph nodes; E11.9 Type 2 diabetes mellitus without complications
CPT/HCPCS: 36415; 80053; 81003; 83036; 83735; 84550; 85025

== ENCOUNTER → 2024-06-17 10:57 | Outpatient (REF) | payer MEDICARE, OTHER, SELFPAY ==
[2024-06-17 10:27] LABS: % Basophils 1.1 % (0-2); % Eosinophils 0.5 % (0-6); % Immature Granulocytes 0.3 % (0-0.5); % Lymphocytes 24.9 % (20.5-51.1); % Monocytes 8.9 % (1.7-9.3); % Neutrophils 64.3 % (42.2-75.2); Absolute Lymphocytes 0.9 10^3/uL (1.2-3.4); Absolute Monocytes 0.3 10^3/uL (0.1-0.6); Absolute Neutrophils 2.4 10^3/uL (1.4-6.5); Hematocrit 39.3 % (37.0-47.0); Hemoglobin 12.6 g/dL (12.0-16.0); Mean Corp Hgb Conc. 32.1 g/dL (33.0-37.0); Mean Corpuscular Hgb 28.1 pg (27.0-31.0); Mean Corpuscular Volume 87.5 fL (81.0-99.0); Mean Platelet Volume 9.9 fL (7.4-10.4); Platelet Count 161 10^3/uL (130-400); Red Blood Cell Count 4.49 10^6/uL (4.20-5.40); Red Cell Dist. Width 12.5 % (11.5-14.5); White Blood Cell Count 3.7 10^3/uL (4.8-10.8)
[2024-06-17 10:56] LABS: ALT (SGPT) 12 U/L (0-35); AST (SGOT) 19 U/L (14-36); Albumin 4.1 g/dl (3.5-5.0); Alkaline Phosphatase 65 U/L (38-126); Blood Urea Nitrogen 27 mg/dl (7-17); Carbon Dioxide 27 mmol/L (22-30); Chloride 103 mmol/L (98-107); Glucose 128 mg/dl (70-99); LDH 141 U/L (120-246); Magnesium 1.6 mg/dl (1.6-2.3); Sodium 140 mmol/L (135-145); Total Bilirubin 0.7 mg/dl (0.2-1.3); Total Protein 6.1 g/dl (6.3-8.2); eGFR 50.17
== END ==
LOC: OIDL 10:57
PROVIDERS: ATTENDING PHYSICIAN Internal Medicine Hematology & Oncology
DX: C50.411 Malignant neoplasm of upper-outer quadrant of right female breast (principal)
CPT/HCPCS: 80053; 83615; 83735; 85025

== ENCOUNTER → 2024-07-28 13:29 | Outpatient (REF) | payer MEDICARE, OTHER, SELFPAY ==
[2024-07-28 15:48] LABS: % Basophils 0.6 % (0-2); % Eosinophils 0.4 % (0-6); % Immature Granulocytes 0.2 % (0-0.5); % Lymphocytes 31.7 % (20.5-51.1); % Monocytes 8.5 % (1.7-9.3); % Neutrophils 58.6 % (42.2-75.2); Absolute Lymphocytes 1.6 10^3/uL (1.2-3.4); Absolute Monocytes 0.4 10^3/uL (0.1-0.6); Absolute Neutrophils 2.9 10^3/uL (1.4-6.5); Hematocrit 40.4 % (37.0-47.0); Hemoglobin 13.1 g/dL (12.0-16.0); Mean Corp Hgb Conc. 32.4 g/dL (33.0-37.0); Mean Corpuscular Hgb 28.1 pg (27.0-31.0); Mean Corpuscular Volume 86.5 fL (81.0-99.0); Mean Platelet Volume 10.3 fL (7.4-10.4); Nucleated Red Blood Cells % 0 %; Platelet Count 170 10^3/uL (130-400); Red Blood Cell Count 4.67 10^6/uL (4.20-5.40); Red Cell Dist. Width 13.7 % (11.5-14.5); White Blood Cell Count 4.9 10^3/uL (4.8-10.8)
[2024-07-28 16:03] LABS: ALT (SGPT) 16 U/L (0-35); AST (SGOT) 21 U/L (14-36); Albumin 4.1 g/dl (3.5-5.0); Alkaline Phosphatase 63 U/L (38-126); Blood Urea Nitrogen 28 mg/dl (7-17); Calcium 9.5 mg/dl (8.4-10.2); Carbon Dioxide 29 mmol/L (22-30); Chloride 104 mmol/L (98-107); Glucose 88 mg/dl (70-99); Magnesium 1.7 mg/dl (1.6-2.3); Sodium 140 mmol/L (135-145); Total Bilirubin 0.7 mg/dl (0.2-1.3); Total Protein 6.3 g/dl (6.3-8.2); Uric Acid 6.1 mg/dl (2.5-6.2); eGFR 45.19
== END ==
LOC: HWLAB 13:29
PROVIDERS: ATTENDING PHYSICIAN Internal Medicine Hematology & Oncology; FAMILY PHYSICIAN Family Medicine
DX: C50.411 Malignant neoplasm of upper-outer quadrant of right female breast (principal); C83.33 Diffuse large B-cell lymphoma, intra-abdominal lymph nodes
CPT/HCPCS: 80053; 83735; 84550; 85025

== ENCOUNTER → 2024-08-30 13:30 | Outpatient (REF) | payer MEDICARE, OTHER, SELFPAY | LOC: RAD 13:30 | PROVIDERS: ATTENDING PHYSICIAN Internal Medicine Hematology & Oncology; FAMILY PHYSICIAN Family Medicine | DX: C50.411 Malignant neoplasm of upper-outer quadrant of right female breast (principal); C83.33 Diffuse large B-cell lymphoma, intra-abdominal lymph nodes | CPT/HCPCS: 74178; Q9967 ==

== ENCOUNTER → 2024-09-09 11:08 | Outpatient (REF) | payer MEDICARE, OTHER, SELFPAY ==
[2024-09-09 17:23] LABS: % Basophils 0.9 % (0-2); % Eosinophils 2.1 % (0-6); % Immature Granulocytes 0.5 % (0-0.5); % Lymphocytes 24.2 % (20.5-51.1); % Monocytes 8.4 % (1.7-9.3); % Neutrophils 63.9 % (42.2-75.2); Absolute Eosinophils 0.1 10^3/uL (0-0.7); Absolute Lymphocytes 1.1 10^3/uL (1.2-3.4); Absolute Monocytes 0.4 10^3/uL (0.1-0.6); Absolute Neutrophils 2.8 10^3/uL (1.4-6.5); Hematocrit 37.9 % (37.0-47.0); Hemoglobin 12.6 g/dL (12.0-16.0); Mean Corp Hgb Conc. 33.2 g/dL (33.0-37.0); Mean Corpuscular Hgb 28.6 pg (27.0-31.0); Mean Corpuscular Volume 85.9 fL (81.0-99.0); Mean Platelet Volume 10.4 fL (7.4-10.4); Nucleated Red Blood Cells % 0 %; Platelet Count 163 10^3/uL (130-400); Red Blood Cell Count 4.41 10^6/uL (4.20-5.40); Red Cell Dist. Width 15.2 % (11.5-14.5); White Blood Cell Count 4.4 10^3/uL (4.8-10.8)
[2024-09-09 17:39] LABS: ALT (SGPT) 16 U/L (0-35); AST (SGOT) 19 U/L (14-36); Albumin 4.3 g/dl (3.5-5.0); Alkaline Phosphatase 68 U/L (38-126); Blood Urea Nitrogen 33 mg/dl (7-17); Calcium 9.4 mg/dl (8.4-10.2); Carbon Dioxide 28 mmol/L (22-30); Chloride 105 mmol/L (98-107); Glucose 123 mg/dl (70-99); Magnesium 1.8 mg/dl (1.6-2.3); Sodium 143 mmol/L (135-145); Total Bilirubin 0.8 mg/dl (0.2-1.3); Total Protein 6.2 g/dl (6.3-8.2); eGFR 50.17
[2024-09-09 17:40] LABS: Uric Acid 5.2 mg/dl (2.5-6.2)
[2024-09-09 18:07] LABS: TSH 0.11 uIU/ml (0.47-4.68)
== END ==
LOC: HWLAB 11:08
PROVIDERS: ATTENDING PHYSICIAN Internal Medicine Hematology & Oncology; FAMILY PHYSICIAN Family Medicine
DX: C50.411 Malignant neoplasm of upper-outer quadrant of right female breast (principal); C83.33 Diffuse large B-cell lymphoma, intra-abdominal lymph nodes; E03.9 Hypothyroidism, unspecified
CPT/HCPCS: 36415; 80053; 83735; 84443; 84550; 85025

== ENCOUNTER → 2024-10-26 10:01 | Outpatient (REF) | payer MEDICARE, OTHER, SELFPAY ==
[2024-10-26 12:09] LABS: % Basophils 0.9 % (0-2); % Eosinophils 0.5 % (0-6); % Immature Granulocytes 0.2 % (0-0.5); % Lymphocytes 27.8 % (20.5-51.1); % Monocytes 7.5 % (1.7-9.3); % Neutrophils 63.1 % (42.2-75.2); Absolute Lymphocytes 1.2 10^3/uL (1.2-3.4); Absolute Monocytes 0.3 10^3/uL (0.1-0.6); Absolute Neutrophils 2.8 10^3/uL (1.4-6.5); Hematocrit 42.7 % (37.0-47.0); Hemoglobin 13.9 g/dL (12.0-16.0); Mean Corp Hgb Conc. 32.6 g/dL (33.0-37.0); Mean Corpuscular Volume 89.1 fL (81.0-99.0); Mean Platelet Volume 10.4 fL (7.4-10.4); Nucleated Red Blood Cells % 0 %; Platelet Count 169 10^3/uL (130-400); Red Blood Cell Count 4.79 10^6/uL (4.20-5.40); Red Cell Dist. Width 14.6 % (11.5-14.5); White Blood Cell Count 4.4 10^3/uL (4.8-10.8)
[2024-10-26 13:20] LABS: ALT (SGPT) 15 U/L (0-35); AST (SGOT) 21 U/L (14-36); Albumin 4.4 g/dl (3.5-5.0); Alkaline Phosphatase 64 U/L (38-126); Blood Urea Nitrogen 24 mg/dl (7-17); Calcium 9.7 mg/dl (8.4-10.2); Carbon Dioxide 23 mmol/L (22-30); Chloride 112 mmol/L (98-107); Glucose 98 mg/dl (70-99); Magnesium 1.7 mg/dl (1.6-2.3); Potassium 4.3 mmol/L (3.5-5.1); Sodium 144 mmol/L (135-145); Total Protein 6.6 g/dl (6.3-8.2); Uric Acid 5.6 mg/dl (2.5-6.2); eGFR 45.19
[2024-10-26 14:26] LABS: Glycohemoglobin (HgbA1c) 5.5 % (4.0-5.6)
== END ==
LOC: HWLAB 10:01
PROVIDERS: ATTENDING PHYSICIAN Internal Medicine Hematology & Oncology; FAMILY PHYSICIAN Family Medicine
DX: C50.411 Malignant neoplasm of upper-outer quadrant of right female breast (principal); C83.33 Diffuse large B-cell lymphoma, intra-abdominal lymph nodes; E11.21 Type 2 diabetes mellitus with diabetic nephropathy
CPT/HCPCS: 36415; 80053; 83036; 83735; 84550; 85025

== ENCOUNTER → 2025-02-07 08:59 | Outpatient (REF) | payer MEDICARE, OTHER, SELFPAY ==
[2025-02-07 14:16] LABS: Glycohemoglobin (HgbA1c) 5.9 % (4.0-5.6)
== END ==
LOC: HWLAB 08:59
PROVIDERS: ATTENDING PHYSICIAN Family Medicine
DX: E11.21 Type 2 diabetes mellitus with diabetic nephropathy (principal)
CPT/HCPCS: 36415; 83036